=== PATIENT | female | born 1945 | race Caucasian/White ===

== ENCOUNTER → 2023-09-30 12:57 | Outpatient (REF) | payer MEDICARE, OTHER, SELFPAY | LOC: RCS 12:57 | PROVIDERS: ATTENDING PHYSICIAN Internal Medicine; FAMILY PHYSICIAN Internal Medicine | DX: C50.912 Malignant neoplasm of unspecified site of left female breast (principal); Z17.1 Estrogen receptor negative status [ER-]; I89.0 Lymphedema, not elsewhere classified | CPT/HCPCS: 93306; 93356 ==

== ENCOUNTER → 2023-10-13 12:49 | Outpatient (REF) | payer MEDICARE, OTHER, SELFPAY | LOC: WDC 12:49 | PROVIDERS: ATTENDING PHYSICIAN Internal Medicine Hematology & Oncology; FAMILY PHYSICIAN Internal Medicine | DX: R92.2 Inconclusive mammogram (principal) | CPT/HCPCS: 76641 ==

== ENCOUNTER → 2023-10-22 14:32 | Outpatient (REF) | payer MEDICARE, OTHER, SELFPAY ==
[2023-10-22 14:58] LABS: % Basophils 0.6 % (0-2); % Eosinophils 2.1 % (0-6); % Immature Granulocytes 0.2 % (0-0.5); % Lymphocytes 29.7 % (20.5-51.1); % Monocytes 8.1 % (1.7-9.3); % Neutrophils 59.3 % (42.2-75.2); Absolute Eosinophils 0.1 10^3/uL (0-0.7); Absolute Lymphocytes 1.4 10^3/uL (1.2-3.4); Absolute Monocytes 0.4 10^3/uL (0.1-0.6); Absolute Neutrophils 2.8 10^3/uL (1.4-6.5); Hematocrit 37.1 % (37.0-47.0); Hemoglobin 12.9 g/dL (12.0-16.0); Mean Corp Hgb Conc. 34.8 g/dL (33.0-37.0); Mean Corpuscular Hgb 31.9 pg (27.0-31.0); Mean Corpuscular Volume 91.8 fL (81.0-99.0); Mean Platelet Volume 8.5 fL (7.4-10.4); Nucleated Red Blood Cells % 0 %; Platelet Count 219 10^3/uL (130-400); Red Blood Cell Count 4.04 10^6/uL (4.20-5.40); Red Cell Dist. Width 13.5 % (11.5-14.5); White Blood Cell Count 4.7 10^3/uL (4.8-10.8)
[2023-10-22 15:07] LABS: ALT (SGPT) 28 U/L (0-35); AST (SGOT) 38 U/L (14-36); Albumin 4.3 g/dl (3.5-5.0); Alkaline Phosphatase 45 U/L (38-126); Blood Urea Nitrogen 18 mg/dl (7-17); Calcium 9.6 mg/dl (8.4-10.2); Carbon Dioxide 30 mmol/L (22-30); Chloride 98 mmol/L (98-107); Glucose 90 mg/dl (70-99); Potassium 3.8 mmol/L (3.5-5.1); Sodium 131 mmol/L (135-145); Total Bilirubin 0.3 mg/dl (0.2-1.3); Total Protein 7.1 g/dl (6.3-8.2); eGFR > 60.00
[2023-10-24 18:48] LABS: CA 27-29 23.6 U/mL (<=39.0)
== END ==
LOC: REG 14:32
PROVIDERS: ATTENDING PHYSICIAN Internal Medicine Hematology & Oncology; FAMILY PHYSICIAN Internal Medicine; REFERRING PHYSICIAN Family Medicine Geriatric Medicine
DX: C50.212 Malignant neoplasm of upper-inner quadrant of left female breast (principal); N83.292 Other ovarian cyst, left side; L03.112 Cellulitis of left axilla; L76.34 Postprocedural seroma of skin and subcutaneous tissue following other procedure; G90.09 Other idiopathic peripheral autonomic neuropathy
CPT/HCPCS: 36415; 80053; 85025; 86300

== ENCOUNTER 2023-11-19 12:59 | Outpatient (RCR) | payer MEDICARE, OTHER, SELFPAY | END 2023-11-19 23:59 | disposition home or self-care (01) | LOC: RPT 12:59 | PROVIDERS: ATTENDING PHYSICIAN Nurse Practitioner Adult Health; FAMILY PHYSICIAN Internal Medicine | DX: I97.2 Postmastectomy lymphedema syndrome (principal); C50.212 Malignant neoplasm of upper-inner quadrant of left female breast; L03.112 Cellulitis of left axilla; L76.34 Postprocedural seroma of skin and subcutaneous tissue following other procedure; Z73.6 Limitation of activities due to disability | CPT/HCPCS: 97140; 97162 ==

== ENCOUNTER 2023-11-25 08:59 | Outpatient (RCR) | payer MEDICARE, OTHER, SELFPAY | END 2023-11-25 23:59 | disposition home or self-care (01) | LOC: RPT 08:59 | PROVIDERS: ATTENDING PHYSICIAN Nurse Practitioner Adult Health; FAMILY PHYSICIAN Internal Medicine | DX: I97.2 Postmastectomy lymphedema syndrome (principal); C50.212 Malignant neoplasm of upper-inner quadrant of left female breast; L03.112 Cellulitis of left axilla; L76.34 Postprocedural seroma of skin and subcutaneous tissue following other procedure; Z73.6 Limitation of activities due to disability | CPT/HCPCS: 97110; 97140 ==

== ENCOUNTER 2023-12-03 22:53 | Inpatient (IN) | payer MEDICARE, OTHER, SELFPAY ==
[2023-12-03 17:41] VITALS: BP 129/81
--- NOTE | 2023-12-03 20:47 | ED.GENMED ---
History of Present Illness
General
Chief Complaint: Abnormal Lab Value
Source: patient
Time Seen by Provider: 12/03/23 20:37
Travel History
Have you had any contact with someone who has COVID-19?: No
Do you have any symptoms of coronavirus? Fever > 100 degrees, chills, cough, shortness of breath, sore throat, loss of taste or smell, muscle aches, or headache?: No
History of Present Illness
History of Present Illness:
78-year-old female presents to the emergency room for evaluation of icteric skin, systemic itching and abnormal blood work. Patient called her primary care doctor when she noticed the above symptoms. Outpatient blood work was obtained today. Labs
show markedly elevated bilirubin. AST and ALT are only mildly elevated at 88 and 141. Alk phos 167. Patient does have a history of left breast cancer. She did receive chemo and radiation.
Phy Exam
Physical Exam
Physical Exam:
General: Awake, Alert, Oriented X3. No acute distress.
Vitals: unremarkable
Head: Atraumatic
Eyes: Pupils equal, EOMI, scleral icterus
Throat: Airway intact, no exudates
Neck: Trachea midline
Lungs: Clear and equal b/l
Heart: Regular rate, no murmurs
Abd: Soft, Nontender, No pulsatile mass
Neuro: Nonfocal
Skin: Warm, dry, icteric with some scattered urticarial like lesions
Extremities: pulses equal b/l, no edema
Course
Orders/Labs/Results
Orders:
Orders
12/03/23 20:47
CT Abd/pelvis W Iv Cont Urgent
Comment:
Reason For Exam: elevated bili, hx of breast cancer
12/03/23 22:00
HydrOXYZINE [Atarax] 25 mg PO NOW STA
12/03/23 22:05
US Abdomen Limited Urgent
Reason For Exam: elevated lft's, biliary dilation on CT
12/03/23 22:29
Admit/Transfer Patient As Directed
Co-Sign Provider:
Level of Care: Inpatient admission
Assign to:: Medical/Surgical
Physician / Group: Maliha Martinez
Diagnosis: biliary dilation, painless jaundice
Reason for Hospitalization: biliary dilation, painless jaundice
Expected length of stay greater than two midnights?: Yes
ELOS- Estimated Length of Stay in days: 3
I certify the patient meets the requirements for IP care: Yes
12/03/23 22:30
Code Status As Directed
Resuscitation Status: Full Code
Vital Signs
Initial and Last Documented VS:
Initial Vital Signs
Temp Pulse Resp BP Pulse Ox
98.7 F 83 18 129/81 99
12/03/23 17:41 12/03/23 17:41 12/03/23 17:41 12/03/23 17:41 12/03/23 17:41
Last Documented Vital Signs
Temp Pulse Resp BP Pulse Ox
98.7 F 83 18 119/72 100
12/03/23 17:41 12/03/23 17:41 12/03/23 17:41 12/03/23 22:00 12/03/23 22:15
MDM/Problems Addressed
Differential Diagnosis Includes:
Common bile duct stone, biliary stricture, mass
MDM/Problems Addressed:
Patient presents with elevated bilirubin. Her CT shows a distended gallbladder and large ducts but no obvious mass or stone. Radiology recommended ultrasound. Patient will be hospitalized as she is clearly going to need intervention.
*Radiology
Radiology exam reviewed: radiology read reviewed
*Pulse Oximetry
Patient hypoxic: no
*Critical Care Note
Total Time (30-74mins, 75-104mins- exclusive of procedures): Not Applicable
ED Attending Note
-
Portions of this chart may have been created with voice recognition software.� Occasional wrong word or��sound alike� substitutions may have occurred due to the inherent limitations of voice recognition software.
Discharge Plan
Departure
Patient Disposition: Admit
Date of Disposition: 12/03/23
Time of Disposition: 22:04
Admit to: Med/Surg
Presentation/result/management discussed w/ accepting MD/DO: Hospitalist
Condition: Fair
Discharge Problem:
Biliary obstruction
Interventions
Interventions:
*Risk Screen - Suicide Last Done: 12/03/23 21:54
*General Assessment Last Done: 12/03/23 17:42
*Neglect/Abuse Screening Last Done: 12/03/23 21:54
ED- Fall Risk Assessment Last Done: 12/03/23 21:54
*ED COVID-19 Vaccine History Last Done: 12/03/23 17:42
[2023-12-03 21:54] VITALS: BMI 18.7
[2023-12-03 21:56] VITALS: BP 117/72
[2023-12-03 22:00] VITALS: BP 119/72
[2023-12-03] MEDS: ATARAX 25 MG PO (22:04)
--- NOTE | 2023-12-03 22:09 | HPS.HSE ---
Family Physician
-
Family Physician: David Figueroa
Chief Complaint
-
painless jaundice
History of Present Illness
Ms. Mraisa Frey is a 78 yo woman with hx Chron's disease s/p ostomy, left breast CA (dx 2020) s/p lumpectomy chemo and radiation who presents to the ER with yellow skin and abnormal blood work.
Patient states she started noticing yellowing of her skin 2 days ago. She denies fevers/chills. No nausea/vomiting. No diarrhea. No change in appetite. No new medications. No hx gallbladder issues.
Medical History
Past Medical History
Past Medical History: Reports Other (left breast cancer s/p chemo and raditation )
Past Surgical History: Reports Other (lumpectomy, ostomy)
Social History
Tobacco: Non-smoker
Alcohol: None
Family History
Family History: Not pertinent
Allergies / Home Medications
Allergies reflects when Allergies were last updated in [employer].
Home Medications with original date entered in [employer]
Allergy/Medication List:
Allergies
Allergy/AdvReac Type Severity Reaction Status Date / Time
Cephalosporins Allergy PCN allergy Verified 12/03/23 17:43
infliximab [From Remicade] Allergy Neuropathy, Verified 12/03/23 17:43
hair loss
mesalamine Allergy Vomiting Verified 12/03/23 17:43
penicillin G Allergy Hives, Verified 12/03/23 17:43
Inability
to move LE
Penicillins Allergy Hives, Verified 12/03/23 17:43
Inability
to move LE
Home Medications
alendronate 70 mg tablet (Fosamax) 70 mg PO WE@0800 05/15/22
cyanocobalamin (vitamin B-12) 1,000 mcg/mL injection solution 1,000 mcg IM QMONTH 05/15/22
ferrous sulfate 325 mg (65 mg iron) tablet (Iron (ferrous sulfate)) 325 mg PO DAILY 05/15/22
Calcium 600 + D(3) 1 tab PO BID 12/03/23
fexofenadine 180 mg tablet 180 mg PO DAILY PRN itching 12/03/23
folic acid 800 mcg tablet 0.8 mg PO DAILY 12/03/23
turmeric 400 mg capsule 400 mg PO DAILY 12/03/23
Review of Systems
-
History Source: Patient
A 12 point ROS was completed and negative except as noted: Yes
Physical Exam
Vital Signs
Vital Signs
Temp Pulse Resp BP Pulse Ox
98.7 F 83 18 117/72 100
12/03/23 17:41 12/03/23 17:41 12/03/23 17:41 12/03/23 21:56 12/03/23 21:56
Physical Exam
General: No Apparent Distress and Conversant
HEENT: PERRLA
Respiratory: Clear; No Wheezes
Cardiac: Regular Rhythm
GI: Ostomy
Musculoskeletal: No Edema
Skin: Warm and Dry; No Rash
Neuro: AO x 3
Psych: Calm
Data Reviewed
-
Diagnostic Radiology: Report Reviewed by me
Lab Data: Labs Reviewed by me
Impression/Plan
-
Ms. Marisa Frey is a 78 yo woman with hx Chron's disease s/p ostomy, left breast CA (dx 2020) s/p lumpectomy chemo and radiation who presents to the ER with yellow skin and abnormal blood work.
Triage VS: T 98.7, P 83, RR 18, BP 129/81, SpO2 99%
LABS: WBC 4.1, Hg 12, PLT 256, Na 133, K+ 4.2, Cr 0.7, Ca 9.6, T. Bili 7.7, AST 88, ALT 141, Alk Phos 167
CT A/P
IMPRESSION: New severe intra and extrahepatic biliary dilatation as well as gallbladder distention. No gallstones identified. This would better be evaluated by abdominal ultrasound.
Mild left hydronephrosis. New. Etiology unknown.
Bilateral too small to characterize hypodense renal lesions likely benign cysts.
Postsurgical change. Right lower quadrant ostomy
Painless Jaundice with T. Bili 7.7
Severe intra and extrahepatic biliary dilatation without gallstone identified
-US ordered in ER. Doubt gallstone given lack of pain or GI symptoms
-admit to med/surg
-NPO after MN
-MRI with and without contrast
-GI Consult
-IVF D5 LR
-give lack of fever, pain and WBC will hold off on antibiotics. Low threshold to start if these present
Hx left breast cancer
-dx 2020
s/p lumpectomy, chemo and radiation
Hx Chron's with ostomy creation
DVT PPx SCD
FULL CODE
[2023-12-03 23:52] VITALS: BP 115/70
[2023-12-03 23:59] VITALS: BP 115/70
[2023-12-04 01:06] VITALS: BMI 18.7
[2023-12-04 01:07] VITALS: BP 130/72
[2023-12-04] MEDS: D5LR 1000 IV ×2 (01:45→13:08)
--- NOTE | 2023-12-04 02:51 | PTCARENOTE ---
Patient arrived to unit via stretcher with diagnosis of Biliary dilation/ painless jaundice. Patient denies pain or discomfort. AAOx3. Ambulates to bathroom. Oriented to unit. Call madera within reach.
[2023-12-04 07:30] VITALS: BP 107/69
[2023-12-04] MEDS: FOLVITE 0.800000000000000044 MG PO (07:56)
[2023-12-04 08:10] LABS: % Basophils 1.8 % (0-2); % Eosinophils 3.9 % (0-6); % Immature Granulocytes 0.3 % (0-0.5); % Lymphocytes 25.5 % (20.5-51.1); % Monocytes 15.9 % (1.7-9.3); % Neutrophils 52.6 % (42.2-75.2); Absolute Basophils 0.1 10^3/uL (0-0.2); Absolute Eosinophils 0.1 10^3/uL (0-0.7); Absolute Lymphocytes 0.9 10^3/uL (1.2-3.4); Absolute Monocytes 0.5 10^3/uL (0.1-0.6); Absolute Neutrophils 1.8 10^3/uL (1.4-6.5); Hematocrit 32.6 % (37.0-47.0); Hemoglobin 11.6 g/dL (12.0-16.0); Mean Corp Hgb Conc. 35.6 g/dL (33.0-37.0); Mean Corpuscular Hgb 32.2 pg (27.0-31.0); Mean Corpuscular Volume 90.6 fL (81.0-99.0); Mean Platelet Volume 9.5 fL (7.4-10.4); Nucleated Red Blood Cells % 0 %; Platelet Count 226 10^3/uL (130-400); Red Cell Dist. Width 15.4 % (11.5-14.5); White Blood Cell Count 3.3 10^3/uL (4.8-10.8)
--- NOTE | 2023-12-04 08:12 | CON.GI ---
Addendum entered and electronically signed by Norma Covington Do, MD 12/04/23 14:29:
I saw and examined the patient.
The SILVERLIGHT DEVELOPER's note was reviewed and I agree with the note.
Comment: Marisa is a 78yo W with h/o crohn's disease s/p ileocectomy followed by total colectomy with end ileostomy currently on no therapy and L sided breast cancer who told to come to ED for elevated TB and painless jaundice. She denies any abd
pain. No new recent meds. Exam with stable VSS, NTTP, NABS, jaundiced icteric. Labs reviewed notable for elevated LFTs.
Impression
- Painless jaundice
MRCP with abrupt termination of distal CBD by stone vs mass
- Crohn's disease with ileostomy
Not currently on therapy
- L sided breast cancer s/p chemoXRT
Recommendation
- Low fat diet
- Plan for EUS/ERCP on Thursday. Case discussed with Dr Powers
- Avoid hepatotoxins
- Serial LFTs
Will follow with you
Original Note:
Consultation
-
Date/Time Consultation Requested: 12/04/23 @ 01:15
Date/Time Consultation Performed: 12/04/23 @ 08:45
Requesting Provider: Dr. Martinez
Performing Provider: SMITHA Osborn; Dr. Norma Stewart
Reason for Consultation: Intra/extra hepatic ductal dilation, painless jaundice
Medical History
Chief Complaint / HPI
Chief Complaint: yellowing skin/eyes, abnormal outpatient labs
History of Present Illness:
The patient is a pleasant 78-year-old female with a past medical history significant for Crohn's disease s/p initial ileocecectomy with subsequent total colectomy and end ileostomy previously on 6-MP therapy (which she is off of), left sided breast
cancer dx March 2022 post lumpectomy (May 2022), chemotherapy (completed October 2022), and radiation, Vitamin B12 deficiency, iron deficiency, who presented to the hospital with complaints of painless jaundice and abnormal outpatient labs. We are
being asked to evaluate for the presenting symptoms with findings of biliary ductal dilation. The patient reports that she had been feeling generally unwell the past week. She noticed about 3 to 4 days ago her urine appeared to be darker in color
and she developed severe itching. She also noticed that her skin started to get progressively yellow along with her eyes. She denies any significant abdominal pain, fevers, or chills. She otherwise denies any GI complaints such as nausea,
vomiting, dysphagia,odynophagia, loss of appetite, or unintentional weight loss. She denies any alcohol use, but had drank alcohol socially prior to that and would have about 1 glass of wine a day on average. She denies any smoking history or
illicit drug use She otherwise denies any history of liver disease or gallbladder disease. She denies any family history of liver disease, pancreatic cancer, or other GI cancers or disorders. Family history is significant for breast cancer in
which she was negative for BRCA gene upon testing. She denies any use of blood thinners. She denies use of NSAIDs. Her last colonoscopy was a number of years ago as she does not have a colon left after her surgical resection. She was previously
following at [facility] with Dr. Jazmin Mortensen for her Crohn's disease, and has recently establish care with Dr. Clark here at [facility]. She follows with Dr. Duarte for routine monitoring of from her breast cancer. Noted with her last PET scan
done in May 2022 in which the biliary findings were not present. Routine labs on admission showed WBC 3.3, hemoglobin 11.6, platelets 226,000, sodium 133, potassium 4.2, BUN 16, creatinine 0.7, total bilirubin 7.7, AST 88, ALT 141, alk phos 167.
Ultrasound the abdomen showed a distended gallbladder with associated intra and extrahepatic ductal dilation without visualized gallstones and hepatic fatty infiltration. A CT of the abdomen pelvis with IV contrast only was done as well which
showed new severe intra and intrahepatic ductal dilation as well as gallbladder distention with no obvious stones, mild left hydronephrosis, and other findings as noted below. She was made n.p.o., and admitted for further evaluation by GI pending
MRI with MRCP.
Past Medical History
Past Medical History: Cancer (Breast cancer status postlumpectomy, chemotherapy, and radiation initial diagnosis March 2022) and Other (Crohn's disease with ileostomy (?Total colectomy), vitamin B12 deficiency, iron deficiency)
Past Surgical History: Bowel Resection (Crohn's disease s/p initial ileocecectomy with subsequent total colectomy and end ileostomy previously on 6-MP therapy) and Gynecological (Tubal ligation, breast lumpectomy)
Social History
Tobacco: Non-Smoker
Alcohol: None
Drug: None
Personal:
Living: With Family
Family History
Family History: Cancer (Mother, and maternal aunt with breast cancer) and Other (No family history of colon cancer, pancreatic cancer, or other GI cancers or disorders)
Allergies / Home Medications
Allergy/AdvReac Type Severity Reaction Status Date / Time
Cephalosporins Allergy PCN allergy Verified 12/03/23 17:43
infliximab [From Remicade] Allergy Neuropathy, Verified 12/03/23 17:43
hair loss
mesalamine Allergy Vomiting Verified 12/03/23 17:43
penicillin G Allergy Hives, Verified 12/03/23 17:43
Inability
to move LE
Penicillins Allergy Hives, Verified 12/03/23 17:43
Inability
to move LE
�Medication �Instructions �Recorded
alendronate 70 mg tablet (Fosamax) 70 mg PO WE@0800 05/15/22
cyanocobalamin (vitamin B-12) 1,000 mcg IM QMONTH 05/15/22
1,000 mcg/mL injection solution
ferrous sulfate 325 mg (65 mg 325 mg PO DAILY 05/15/22
iron) tablet (Iron (ferrous
sulfate))
Calcium 600 + D(3) 1 tab PO BID 12/03/23
fexofenadine 180 mg tablet 180 mg PO DAILY PRN itching 12/03/23
folic acid 800 mcg tablet 0.8 mg PO DAILY 12/03/23
turmeric 400 mg capsule 400 mg PO DAILY 12/03/23
Review of Systems
-
History Source: Patient and Family
Constitutional: Reports No Symptoms
EENT: Reports No Symptoms
Respiratory: Reports No Symptoms
Cardiac: Reports No Symptoms
Abdomen/GI: Reports No Symptoms
: Reports Dark Urine
Musculoskeletal: Reports No Symptoms
Skin: Reports Itching and Other (Jaundice)
Neurological: Reports No Symptoms
Vital Signs
Temp Pulse Resp BP Pulse Ox
97.9 F 75 18 130/72 97
12/04/23 01:07 12/04/23 01:07 12/04/23 01:07 12/04/23 01:07 12/04/23 01:07
Physical Exam
Exam
General: Well Developed, Well Nourished, No Apparent Distress, Comfortable and Other (Appearing female, jaundice, otherwise in no acute distress)
HEENT: Normocephalic, Atraumatic and Other (Bilateral scleral icterus)
Respiratory: Clear
Cardiac: S1/S2 and Regular Rhythm
Breast: Deferred by me
GI: Soft, Non Tender, Non Distended, Normal Bowel Sounds and Other (Right lower quadrant ileostomy)
Musculoskeletal: No Edema
Skin: Warm and Dry
Neuro: Awake, Alert and Oriented
Psych: Calm
Results
Diagnostic Image Results:
12/03/23 CT A/P w/IV: 'IMPRESSION: New severe intra and extrahepatic biliary dilatation as well as gallbladder distention. No gallstones identified. This would better be evaluated by abdominal ultrasound. Mild left hydronephrosis. New. Etiology
unknown. Bilateral too small to characterize hypodense renal lesions likely benign cysts. Postsurgical change. Right lower quadrant ostomy.'
12/03/2023 US abdomen: 'Distended gallbladder. Associated intra and extrahepatic dilatation with no visualized gallstones. New from PET scan 06/12/2022. This could further be evaluated by MRCP or ERCP examination to evaluate for a stricture or a
nonvisible mass by CT or ultrasound if indicated clinically. (No pancreatic mass seen on recent CAT scan). Hepatic fatty infiltration.'
Prior GI Procedures:
EGD:
Colonoscopy:
Assessment / Plan
-
The patient is a pleasant 78-year-old female with a past medical history significant for Crohn's disease s/p initial ileocecectomy with subsequent total colectomy and end ileostomy previously on 6-MP therapy (which she is off of), left sided breast
cancer dx March 2022 post lumpectomy (May 2022), chemotherapy (completed October 2022), and radiation, Vitamin B12 deficiency, iron deficiency, who presented to the hospital with complaints of painless jaundice and abnormal outpatient labs which we
are being asked to evaluate for. She underwent ultrasound and CT imaging on admission which did show significant intra and extrahepatic ductal dilation, although without visualized gallstones but the gallbladder did appear distended. Labs showing
bilirubin 7.7, AST 88, ALT 141, alk phos 167. No prior history of biliary or pancreatic disease. She is awaiting MRI with MRCP this morning.
Problem list:
-Painless jaundice
-Abnormal LFTs
-History of breast cancer March 2022
-History of Crohn's disease with ileocecectomy with total colectomy and end ileostomy, not on medications
-Chronic normocytic anemia, appears at baseline
Recommendations:
-Etiology of painless jaundice/biliary ductal dilation likely secondary to biliary v pancreatic etiology such as choledocho versus stricture versus mass versus other. No obvious masses or stones seen on CT or ultrasound imaging.
-Agree with MRI with MRCP for further evaluation. I did speak with MRI who reports patient will have her MRI today.
-Pending above may need ERCP v EUS. Will review with Dr. Powers and Dr. Stewart
-Continue n.p.o.
-Trend LFTs
-IV fluids while n.p.o.
-Outpatient follow-up with Dr. Clark after discharge for routine care
-Will follow
Data Reviewed
-
CT Scan: Report Reviewed by me
Ultrasound: Report Reviewed by me
-
-
Thank you for consultation and allowing me to participate in the patient's care. Please call the iron plastic bullet maker GI physician during the after hours with any questions or concerns.
[2023-12-04 08:58] LABS: Albumin 3.5 g/dl (3.5-5.0); Blood Urea Nitrogen 11 mg/dl (7-17); Carbon Dioxide 22 mmol/L (22-30); Chloride 106 mmol/L (98-107); Estimated Creatinine Clearance 72 ml/min; Glucose 93 mg/dl (70-99); Total Bilirubin 7.5 mg/dl (0.2-1.3); Total Protein 6.1 g/dl (6.3-8.2); eGFR > 60.00
--- NOTE | 2023-12-04 08:59 | W.PN.HOSP.TC ---
Today's Communication/Plan
-
MRCP.
Assessment / Plan
Assessment / Plan
Physical exam:
General: Well Developed, Well Nourished and No Apparent Distress
HEENT: Normocephalic, Atraumatic and Moist Mucous Membranes. Jaundice present
Respiratory: Clear to Auscultation; Negative Wheezes, Rales or Rhonchi
Cardiac: Regular Rhythm and S1/S2
GI: Soft, Nontender and Nondistended. Ostomy in place
Musculoskeletal: No Clubbing, No Cyanosis and No Edema
Neuro: Awake, Alert and Oriented
Psych: Calm
A/P:
Painless Jaundice with T. Bili 7.7
Severe intra and extrahepatic biliary dilatation without gallstone identified
-US ordered in ER. Doubt gallstone given lack of pain or GI symptoms
-admit to med/surg
-NPO after MN
-MRI with and without contrast
-GI Consult appreciated
-IVF D5 LR
-give lack of fever, pain and WBC will hold off on antibiotics. Low threshold to start if these present
-Discussed with at bedside
Hx left breast cancer
-dx 2020
s/p lumpectomy, chemo and radiation
Hx Chron's with ostomy creation
DVT PPx SCD
FULL CODE
Anticipated Discharge: 24 - 48 hours
Subjective/Interval History
-
Date of Service: December 04, 2023
Patient denies abdominal pain. Afebrile
Objective Data
-
Labs:
Laboratory Results
12/04/23
07:21
WBC 3.3 L
Hgb 11.6 L
Hct 32.6 L
Plt Count 226
Sodium Pending
Potassium Pending
Chloride 106
Carbon Dioxide 22
BUN 11
Creatinine 0.5 L
Glucose 93
Calcium Pending
Total Bilirubin 7.5 H
AST Pending
ALT Pending
Alkaline Phosphatase Pending
Vital Signs:
Vital Signs
Temp Pulse Resp BP Pulse Ox
97.9 F 75 18 130/72 97
12/04/23 01:07 12/04/23 01:07 12/04/23 01:07 12/04/23 01:07 12/04/23 01:07
I&O
12/03/23 12/04/23 12/05/23
06:59 06:59 06:59
Intake Total 1000 / 1000
Balance 1000 / 1000
[2023-12-04 09:08] LABS: ALT (SGPT) 118 U/L (0-35); AST (SGOT) 78 U/L (14-36); Alkaline Phosphatase 162 U/L (38-126); Calcium 9.4 mg/dl (8.4-10.2); Potassium 4.1 mmol/L (3.5-5.1); Sodium 134 mmol/L (135-145)
--- NOTE | 2023-12-04 13:32 | CM ---
Patient seen bedside with spouse, initial assessment completed. Patient reports she resides with her in a multiple story home, three steps to enter. Patient denies DME, VN, or SNF. Patient confirms PCP David Figueroa, confirms prescription
coverage, pharmacy used [facility] in [place]. CM will continue to follow for discharge planning needs.
Plan; home no needs vs VN
--- NOTE | 2023-12-04 14:29 | W.PN.UPDATE ---
Update Note
Progress Note Update
Billing purposes
[2023-12-04 15:00] VITALS: BP 111/73
[2023-12-04] MEDS: ATARAX 25 MG PO (18:54)
[2023-12-04] MEDS: TUMS 1 TABLET PO (21:59)
[2023-12-04 23:24] VITALS: BP 98/56
[2023-12-05] MEDS: D5LR 1000 IV (01:41)
[2023-12-05 07:34] VITALS: BP 119/76
[2023-12-05 08:32] LABS: % Basophils 1.6 % (0-2); % Immature Granulocytes 0.3 % (0-0.5); % Lymphocytes 24.8 % (20.5-51.1); % Monocytes 14.3 % (1.7-9.3); Absolute Basophils 0.1 10^3/uL (0-0.2); Absolute Eosinophils 0.2 10^3/uL (0-0.7); Absolute Lymphocytes 0.8 10^3/uL (1.2-3.4); Absolute Monocytes 0.5 10^3/uL (0.1-0.6); Absolute Neutrophils 1.7 10^3/uL (1.4-6.5); Hematocrit 33.3 % (37.0-47.0); Mean Corpuscular Hgb 32.3 pg (27.0-31.0); Mean Corpuscular Volume 89.8 fL (81.0-99.0); Mean Platelet Volume 9.6 fL (7.4-10.4); Nucleated Red Blood Cells % 0 %; Platelet Count 227 10^3/uL (130-400); Red Blood Cell Count 3.71 10^6/uL (4.20-5.40); Red Cell Dist. Width 15.2 % (11.5-14.5); White Blood Cell Count 3.2 10^3/uL (4.8-10.8)
[2023-12-05] MEDS: FOLVITE 0.800000000000000044 MG PO (08:35)
[2023-12-05 08:38] LABS: INR 0.88; PT 11.8 Sec (11.4-14.6)
--- NOTE | 2023-12-05 08:43 | W.PN.HOSP.TC ---
Today's Communication/Plan
-
Plan for ERCP Thursday
Assessment / Plan
Assessment / Plan
Physical exam:
General: Well Developed, Well Nourished and No Apparent Distress
HEENT: Normocephalic, Atraumatic and Moist Mucous Membranes. Jaundice present
Respiratory: Clear to Auscultation; Negative Wheezes, Rales or Rhonchi
Cardiac: Regular Rhythm and S1/S2
GI: Soft, Nontender and Nondistended. Ostomy in place
Musculoskeletal: No Clubbing, No Cyanosis and No Edema
Neuro: Awake, Alert and Oriented
Psych: Calm
MRCP:
Dilated intra and extrahepatic biliary system, with abrupt termination of the distal common bile duct concerning for either a noncalcified gallstone or soft tissue mass/neoplasm within the duct. ERCP is recommended.
Distended gallbladder. Minimal pericholecystic fluid. No definite gallstones.
There is no pancreatic ductal dilatation.
Left hydronephrosis, similar to CT, new. Minimal cyst in the kidneys and liver.
Ostomy right lower quadrant.
A/P:
Painless Jaundice with T. Bili 7.7
Severe intra and extrahepatic biliary dilatation without gallstone identified
-MRI with and without contrast results as above
-GI Consult appreciated
-Diet advanced
-GI consult appreciated
-Plan for EUS/ERCP on Thursday
Hx left breast cancer
-dx 2020
s/p lumpectomy, chemo and radiation
Hx Chron's with ostomy creation
DVT PPx SCD
FULL CODE
Anticipated Discharge: > 48 hours
Subjective/Interval History
-
Date of Service: December 05, 2023
Denies abd pain, no n/v. Afebrile
Objective Data
-
Labs:
Laboratory Results
12/05/23
08:10
WBC 3.2 L
Hgb 12.0
Hct 33.3 L
Plt Count 227
PT 11.8
INR 0.88
Sodium Pending
Potassium Pending
Chloride Pending
Carbon Dioxide Pending
BUN Pending
Creatinine Pending
Glucose Pending
Calcium Pending
Total Bilirubin Pending
AST Pending
ALT Pending
Alkaline Phosphatase Pending
Vital Signs:
Vital Signs
Temp Pulse Resp BP Pulse Ox
97.7 F 73 18 119/76 100
12/05/23 07:34 12/05/23 07:34 12/05/23 07:34 12/05/23 07:34 12/05/23 07:34
I&O
12/04/23 12/05/23 12/06/23
06:59 06:59 06:59
Intake Total 1000 / 1000 1879
Balance 1000 / 1000 1879
[2023-12-05 09:06] LABS: ALT (SGPT) 100 U/L (0-35); AST (SGOT) 69 U/L (14-36); Albumin 3.6 g/dl (3.5-5.0); Alkaline Phosphatase 167 U/L (38-126); Blood Urea Nitrogen 11 mg/dl (7-17); Calcium 9.4 mg/dl (8.4-10.2); Carbon Dioxide 26 mmol/L (22-30); Chloride 103 mmol/L (98-107); Estimated Creatinine Clearance 72 ml/min; Glucose 86 mg/dl (70-99); Potassium 4.2 mmol/L (3.5-5.1); Sodium 134 mmol/L (135-145); Total Bilirubin 8.2 mg/dl (0.2-1.3); Total Protein 6.2 g/dl (6.3-8.2); eGFR > 60.00
--- NOTE | 2023-12-05 10:38 | W.PN.GI.CBS2 ---
Today's Communication / Plan
-
Results of MRI d/w pt and copy provided
EUS/ERCP with Dr Powers on Thursday
Will follow with you
Assessment / Plan
-
The patient is a pleasant 78-year-old female with a past medical history significant for Crohn's disease s/p initial ileocecectomy with subsequent total colectomy and end ileostomy previously on 6-MP therapy (which she is off of), left sided breast
cancer dx March 2022 post lumpectomy (May 2022), chemotherapy (completed October 2022), and radiation, Vitamin B12 deficiency, iron deficiency, who presented to the hospital with complaints of painless jaundice and abnormal outpatient labs which we
are being asked to evaluate for. She underwent ultrasound and CT imaging on admission which did show significant intra and extrahepatic ductal dilation, although without visualized gallstones but the gallbladder did appear distended. Labs showing
bilirubin 7.7, AST 88, ALT 141, alk phos 167. No prior history of biliary or pancreatic disease. She is awaiting MRI with MRCP this morning.
Problem list:
-Painless jaundice
MRI with ? stone vs mass
-Abnormal LFTs
-History of breast cancer March 2022
-History of Crohn's disease with ileocecectomy with total colectomy and end ileostomy, not on medications
-Chronic normocytic anemia, appears at baseline
Recommendations:
- Results of MRI d/w pt. Copy provided for her
- Plan for EUS/ERCP for possible stent FNA on Thursday with Dr Powers. Case d/w Dr Pwoers
- C/w Low fat diet. NPO at [place] on thursday
- Trend LFTs
- Sarna cream topically PRN itching
Will follow with you
Subjective
Subjective
Date of Service: December 05, 2023
She denies abd pain. Tolerating low fat diet. No nausea/vomiting. She is still itching diffusely. No fevers
Objective
Data Reviewed
Laboratory Data:
Laboratory Results
12/05/23 08:10
12/05/23 08:10
Laboratory Results
PT 11.8 Sec (11.4-14.6) 12/05/23 08:10
INR 0.88 12/05/23 08:10
Magnesium 2.0 mg/dl (1.6-2.3) 12/04/23 07:21
Total Bilirubin 8.2 mg/dl (0.2-1.3) H 12/05/23 08:10
AST 69 U/L (14-36) H 12/05/23 08:10
ALT 100 U/L (0-35) H 12/05/23 08:10
Alkaline Phosphatase 167 U/L (38-126) H 12/05/23 08:10
Vital Signs and I&O:
Vital Signs
Temp Pulse Resp BP Pulse Ox
97.7 F 73 18 119/76 100
12/05/23 07:34 12/05/23 07:34 12/05/23 07:34 12/05/23 07:34 12/05/23 07:34
I&O
12/04/23 12/05/23 12/06/23
06:59 06:59 06:59
Intake Total 1000 / 1000 1879
Balance 1000 / 1000 1879
Physical Exam
Physical Exam
GEN: No acute distress, conversant, pleasant
HEENT: +icteric, extraocular movements intact, clear oropharynx without exudates
GI: soft, non-distended, not tender to palpation, normal active bowel sounds, no hepatosplenomegaly
EXT: warm, well perfused, no edema bilaterally ++diffusely jaundice
NEURO: AAOx3, non-focal
[2023-12-05 17:34] VITALS: BP 121/72
[2023-12-05] MEDS: ATARAX 25 MG PO (19:19)
[2023-12-05 23:19] VITALS: BP 105/61
[2023-12-06 07:11] VITALS: BP 113/70
[2023-12-06] MEDS: FOLVITE 0.800000000000000044 MG PO (08:01)
--- NOTE | 2023-12-06 08:56 | W.PN.HOSP.TC ---
Today's Communication/Plan
-
Plan for EUS/ERCP tomorrow.
Assessment / Plan
Assessment / Plan
Physical exam:
General: Well Developed, Well Nourished and No Apparent Distress
HEENT: Normocephalic, Atraumatic and Moist Mucous Membranes. Jaundice present
Respiratory: Clear to Auscultation; Negative Wheezes, Rales or Rhonchi
Cardiac: Regular Rhythm and S1/S2
GI: Soft, Nontender and Nondistended. Ostomy in place
Musculoskeletal: No Clubbing, No Cyanosis and No Edema
Neuro: Awake, Alert and Oriented
Psych: Calm
MRCP:
Dilated intra and extrahepatic biliary system, with abrupt termination of the distal common bile duct concerning for either a noncalcified gallstone or soft tissue mass/neoplasm within the duct. ERCP is recommended.
Distended gallbladder. Minimal pericholecystic fluid. No definite gallstones.
There is no pancreatic ductal dilatation.
Left hydronephrosis, similar to CT, new. Minimal cyst in the kidneys and liver.
Ostomy right lower quadrant.
A/P:
Painless Jaundice with T. Bili 7.7 upon admission
Severe intra and extrahepatic biliary dilatation
-MRI with and without contrast results as above
-GI Consult appreciated
-Diet advanced but plan for n.p.o. after midnight for procedure tomorrow
-GI consult appreciated
-Atarax as needed
-Plan for EUS/ERCP on Thursday
Left hydronephrosis
-Might require urology evaluation after GI procedures completed.
Hx left breast cancer
-dx 2020
s/p lumpectomy, chemo and radiation
Hx Chron's with ostomy creation
DVT PPx SCD
FULL CODE
Anticipated Discharge: 24 - 48 hours
Subjective/Interval History
-
Date of Service: December 06, 2023
Patient complains of generalized itchiness. No abdominal pain nausea or vomiting. Patient ambulating on the hallway without difficulties. Afebrile.
Objective Data
-
Labs:
Laboratory Results
12/06/23
07:30
Total Bilirubin Pending
AST Pending
ALT Pending
Alkaline Phosphatase Pending
Vital Signs:
Vital Signs
Temp Pulse Resp BP Pulse Ox
98.3 F 77 28 113/70 99
12/06/23 07:11 12/06/23 07:11 12/06/23 07:11 12/06/23 07:11 12/06/23 07:11
I&O
12/05/23 12/06/23 12/07/23
06:59 06:59 06:59
Intake Total 1879 / 0 1490 / 1490
Balance 1879 / 1879 1490 / 1490
--- NOTE | 2023-12-06 09:00 | PTCARENOTE ---
pt aaox3. states no pain or sob. room air breath sounds clear. skin jaundice. pt walking halls. pt does have itchy skin wants to wait for prn med.
[2023-12-06 09:14] LABS: ALT (SGPT) 87 U/L (0-35); AST (SGOT) 57 U/L (14-36); Albumin 3.3 g/dl (3.5-5.0); Alkaline Phosphatase 151 U/L (38-126); Direct Bilirubin 6.2 mg/dl (0.0-0.4); Total Protein 5.9 g/dl (6.3-8.2)
--- NOTE | 2023-12-06 09:22 | W.PN.GI.CBS2 ---
Today's Communication / Plan
-
NPO at [place]
ERCP/EUS Thursday with Dr Powers
Assessment / Plan
-
The patient is a pleasant 78-year-old female with a past medical history significant for Crohn's disease s/p initial ileocecectomy with subsequent total colectomy and end ileostomy previously on 6-MP therapy (which she is off of), left sided breast
cancer dx March 2022 post lumpectomy (May 2022), chemotherapy (completed October 2022), and radiation, Vitamin B12 deficiency, iron deficiency, who presented to the hospital with complaints of painless jaundice and abnormal outpatient labs which we
are being asked to evaluate for.
Problem list:
-Painless jaundice
MRI with ? stone vs mass causing abrupt CBD obstruction
-Abnormal LFTs
-History of breast cancer March 2022
-History of Crohn's disease with ileocecectomy with total colectomy and end ileostomy, not on medications
-Chronic normocytic anemia, appears at baseline
Recommendations:
- Results of MRI d/w pt. Copy provided for her 12/04
- Plan for EUS/ERCP for possible stent FNA on Thursday with Dr Powers. Case d/w Dr Powers
- C/w Low fat diet. NPO at [place] on thursday
- Trend LFTs
- Sarna cream topically PRN itching ordered but not formulary
Will follow with you
Subjective
Subjective
Date of Service: December 06, 2023
Continues to have some itching. Denies abd pain, nausea/vomiting. Tolerating diet. Usual output from ostomy
Objective
Data Reviewed
Laboratory Data:
Laboratory Results
12/05/23 08:10
12/05/23 08:10
Laboratory Results
PT 11.8 Sec (11.4-14.6) 12/05/23 08:10
INR 0.88 12/05/23 08:10
Magnesium 2.0 mg/dl (1.6-2.3) 12/04/23 07:21
Total Bilirubin 8.0 mg/dl (0.2-1.3) H 12/06/23 07:30
AST 57 U/L (14-36) H 12/06/23 07:30
ALT 87 U/L (0-35) H 12/06/23 07:30
Alkaline Phosphatase 151 U/L (38-126) H 12/06/23 07:30
Vital Signs and I&O:
Vital Signs
Temp Pulse Resp BP Pulse Ox
98.3 F 77 28 113/70 99
12/06/23 07:11 12/06/23 07:11 12/06/23 07:11 12/06/23 07:11 12/06/23 07:11
I&O
12/05/23 12/06/23 12/07/23
06:59 06:59 06:59
Intake Total 1879 1490 / 1490
Balance 1879 1490 / 1490
Physical Exam
Physical Exam
GEN: No acute distress, conversant, pleasant
HEENT: +icteric, extraocular movements intact, clear oropharynx without exudates
GI: soft, non-distended, ostomy with green output, not tender to palpation, normal active bowel sounds, no hepatosplenomegaly
EXT: warm, well perfused, no edema bilaterally, diffusely jaundice
NEURO: AAOx3, non-focal
[2023-12-06] MEDS: ATARAX 25 MG PO ×2 (12:00→23:42)
[2023-12-06 15:15] VITALS: BP 110/65
[2023-12-06 23:30] VITALS: BP 110/67
[2023-12-07 07:19] LABS: Hematocrit 35.1 % (37.0-47.0); Hemoglobin 12.8 g/dL (12.0-16.0); Mean Corp Hgb Conc. 36.5 g/dL (33.0-37.0); Mean Corpuscular Hgb 32.4 pg (27.0-31.0); Mean Corpuscular Volume 88.9 fL (81.0-99.0); Mean Platelet Volume 9.5 fL (7.4-10.4); Platelet Count 277 10^3/uL (130-400); Red Blood Cell Count 3.95 10^6/uL (4.20-5.40); Red Cell Dist. Width 15.4 % (11.5-14.5); White Blood Cell Count 4.2 10^3/uL (4.8-10.8)
[2023-12-07 07:43] LABS: INR 0.87; PT 11.6 Sec (11.4-14.6)
[2023-12-07 07:49] LABS: ALT (SGPT) 82 U/L (0-35); AST (SGOT) 60 U/L (14-36); Albumin 3.8 g/dl (3.5-5.0); Alkaline Phosphatase 170 U/L (38-126); Blood Urea Nitrogen 15 mg/dl (7-17); Calcium 10.1 mg/dl (8.4-10.2); Carbon Dioxide 26 mmol/L (22-30); Chloride 100 mmol/L (98-107); Estimated Creatinine Clearance 72 ml/min; Glucose 86 mg/dl (70-99); Potassium 4.8 mmol/L (3.5-5.1); Sodium 133 mmol/L (135-145); Total Bilirubin 9.2 mg/dl (0.2-1.3); Total Protein 6.7 g/dl (6.3-8.2); eGFR > 60.00
[2023-12-07 07:54] VITALS: BP 96/64
--- NOTE | 2023-12-07 13:29 | W.PN.HOSP.TC ---
Today's Communication/Plan
-
.
Assessment / Plan
Assessment / Plan
Physical exam:
General: Well Developed, Well Nourished and No Apparent Distress
HEENT: Normocephalic, Atraumatic and Moist Mucous Membranes. Jaundice present
Respiratory: Clear to Auscultation; Negative Wheezes, Rales or Rhonchi
Cardiac: Regular Rhythm and S1/S2
GI: Soft, Nontender and Nondistended. Ostomy in place
Musculoskeletal: No Clubbing, No Cyanosis and No Edema
Neuro: Awake, Alert and Oriented
Psych: Calm
MRCP:
Dilated intra and extrahepatic biliary system, with abrupt termination of the distal common bile duct concerning for either a noncalcified gallstone or soft tissue mass/neoplasm within the duct. ERCP is recommended.
Distended gallbladder. Minimal pericholecystic fluid. No definite gallstones.
There is no pancreatic ductal dilatation.
Left hydronephrosis, similar to CT, new. Minimal cyst in the kidneys and liver.
Ostomy right lower quadrant.
A/P:
Painless Jaundice with T. Bili 7.7 upon admission with mild transaminitis
Severe intra and extrahepatic biliary dilatation
-MRI with and without contrast results as above
-GI Consult appreciated
-Diet advanced but plan for n.p.o. after midnight for procedure today, given IVF while NPO.
-Atarax as needed
-Plan for EUS/ERCP on Thursday
# Left hydronephrosis
No renal colic. Normal renal function. No hematuria
-Might require urology evaluation after GI procedures completed.
# Hyponatremia, mild
Given IVF
#Hx left breast cancer
-dx 2020
s/p lumpectomy, chemo and radiation
Primary oncologist is Dr. Duarte
#Hx Chron's with ostomy creation
#DVT PPx SCD
#FULL CODE
�Total time spent to see patient, examine the patient on the floor, review data and lab results, discuss treatment plan with patient, nursing staff around 55 minutes
Anticipated Discharge: 24 - 48 hours
Subjective/Interval History
-
Date of Service: December 07, 2023
No abd pain
No chest pain
Await GI procedure, NPO this morning
Objective Data
-
Labs:
Laboratory Results
12/07/23
06:39
WBC 4.2 L
Hgb 12.8
Hct 35.1 L
Plt Count 277 D
PT 11.6
INR 0.87
Sodium 133 L
Potassium 4.8
Chloride 100
Carbon Dioxide 26
BUN 15
Creatinine 0.5 L
Glucose 86
Calcium 10.1
Total Bilirubin 9.2 H
AST 60 H
ALT 82 H
Alkaline Phosphatase 170 H
Vital Signs:
Vital Signs
Temp Pulse Resp BP Pulse Ox
98.5 F 71 16 96/64 98
12/07/23 07:54 12/07/23 07:54 12/07/23 07:54 12/07/23 07:54 12/07/23 07:54
I&O
12/06/23 12/07/23 12/08/23
06:59 06:59 06:59
Intake Total 1490 / 1490 840 / 840
Balance 1490 / 1490 840 / 840
[2023-12-07] MEDS: D5/0.9% SODIUM CHLORIDE 1000 IV (14:13)
--- NOTE | 2023-12-07 14:56 | CM ---
Patient seen, reports waiting for procedures. Chart reviewed, per Gastroenterology note, ERCP/EUS for today. CM will continue to follow for discharge planning needs.
Plan; home no needs, watch for VN needs.
[2023-12-07 15:36] VITALS: BP 119/73
[2023-12-07 18:12] VITALS: BP 108/66; BP 116/66
[2023-12-07 18:15] VITALS: BP 119/71
[2023-12-07 18:30] VITALS: BP 128/71
[2023-12-07] MEDS: FOLVITE PO (22:57)
[2023-12-07 23:39] VITALS: BP 99/61
[2023-12-08] MEDS: D5/0.9% SODIUM CHLORIDE 1000 IV (02:25)
[2023-12-08 07:44] VITALS: BP 95/59
--- NOTE | 2023-12-08 07:54 | CON.ONC ---
Impression
Impression
painless jaundice, biliary stricture, s/p ERCP w/ sphincterotomy, stent, biopsy 12/07/23
triple negative breast cancer, stage IIIB, treated w/ lumpectomy, AC-T (finished 10/2022), and radiation
Crohn's disease, s/p ileocolectomy
Plan
Plan
Await path, tumor markers
If stable for discharge before path is finalized, will arrange f/u with Dr. Duarte in 1-2 weeks to review results and plan further mgmt
Patient History
History of Present Illness
This is a 78 yo F with history of triple negative breast cancer, treated with lumpectomy in late 2021, followed by adjuvant chemo and radiation, who presented with painless jaundice and pruritus. CT imaging showed severe intra and extrahepatic
biliary dilatation. She underwent ERCP on 12/06, revealing a malignant appearing stricture, which was biopsied, treated with sphincterotomy and stent. CA19-9 and CA27-29 are pending. Bilirubin is trending down, and she feels fairly well.
Past-Medical/Surgical History
Past Medical History
Past Medical History: Cancer (Breast cancer status postlumpectomy, chemotherapy, and radiation initial diagnosis March 2022) and Other (Crohn's disease with ileostomy (?Total colectomy), vitamin B12 deficiency, iron deficiency)
Past Surgical History: Bowel Resection (Crohn's disease s/p initial ileocecectomy with subsequent total colectomy and end ileostomy previously on 6-MP therapy) and Gynecological (Tubal ligation, breast lumpectomy)
Social History
Tobacco: Non-Smoker
Alcohol: None
Drug: None
Personal:
Living: With Family
Family History
Family History: Cancer (Mother, and maternal aunt with breast cancer) and Other (No family history of colon cancer, pancreatic cancer, or other GI cancers or disorders)
Patient Medication
�Medication �Instructions �Recorded �Confirmed �Last Taken �Type
alendronate 70 mg tablet (Fosamax) 70 mg PO WE@0800 05/15/22 12/03/23 12/02/23 History
cyanocobalamin (vitamin B-12) 1,000 mcg IM QMONTH Supplement 05/15/22 12/03/23 11/27/23 History
1,000 mcg/mL injection solution
ferrous sulfate 325 mg (65 mg 325 mg PO DAILY Supplement 05/15/22 12/03/23 05/15/22 History
iron) tablet (Iron (ferrous
sulfate))
Calcium 600 + D(3) 1 tab PO BID 12/03/23 12/03/23 12/03/23 History
fexofenadine 180 mg tablet 180 mg PO DAILY PRN itching 12/03/23 12/03/23 12/02/23 History
folic acid 800 mcg tablet 0.8 mg PO DAILY Supplement 12/03/23 12/03/23 Unknown History
turmeric 400 mg capsule 400 mg PO DAILY Supplement 12/03/23 12/03/23 12/02/23 History
Active Medications
Generic Name Dose Route Start Last Admin
Trade Name Freq PRN Reason Stop Dose Admin
Folic Acid 0.8 mg 12/04/23 08:00 12/07/23 22:57
Folic Acid 0.4 Mg Tablet PO 01/01/24 07:59 Not Given
DAILY FLORI
Hydroxyzine HCl 25 mg 12/04/23 18:36 12/06/23 23:42
Hydroxyzine 25 Mg Tablet PO 01/01/24 18:35 25 mg
[id number] PRN Administration
itching
Sarna Cream Apply 0 applic 12/05/23 10:45
Topically Q2h TOPICAL 01/02/24 10:44
Q2H FLORI
Sodium Chloride 0 flush 12/04/23 02:00
Sodium Chloride 0.9% (Flush) Syringe IV 01/01/24 01:59
PER PROTOCOL FLORI
Review of Systems
-
All Other Systems: Not reviewed unless documented
Physical Exam
-
General: Well Developed, Well Nourished, No Apparent Distress and Conversant; Negative Appears in Distress
HEENT: Jaundice
Skin: Warm, Dry and Jaundice
Psych: Calm and Intact Judgement/Insight
Labs
Lab Results
WBC 4.2 10^3/uL (4.8-10.8) L 12/07/23 06:39
RBC 3.95 10^6/uL (4.20-5.40) L 12/07/23 06:39
Hgb 12.8 g/dL (12.0-16.0) 12/07/23 06:39
Hct 35.1 % (37.0-47.0) L 12/07/23 06:39
MCV 88.9 fL (81.0-99.0) 12/07/23 06:39
MCH 32.4 pg (27.0-31.0) H 12/07/23 06:39
MCHC 36.5 g/dL (33.0-37.0) 12/07/23 06:39
RDW 15.4 % (11.5-14.5) H 12/07/23 06:39
Plt Count 277 10^3/uL (130-400) D 12/07/23 06:39
MPV 9.5 fL (7.4-10.4) 12/07/23 06:39
Abs Immat Gran (auto) 0.0 10^3/uL (0-0.05) 12/05/23 08:10
Absolute Neuts (auto) 1.7 10^3/uL (1.4-6.5) 12/05/23 08:10
Absolute Lymphs (auto) 0.8 10^3/uL (1.2-3.4) L 12/05/23 08:10
Absolute Monos (auto) 0.5 10^3/uL (0.1-0.6) 12/05/23 08:10
Absolute Eos (auto) 0.2 10^3/uL (0-0.7) 12/05/23 08:10
Absolute Basos (auto) 0.1 10^3/uL (0-0.2) 12/05/23 08:10
Immature Gran % 0.3 % (0-0.5) 12/05/23 08:10
Neutrophils % 54.0 % (42.2-75.2) 12/05/23 08:10
Lymphocytes % 24.8 % (20.5-51.1) 12/05/23 08:10
Monocytes % 14.3 % (1.7-9.3) H 12/05/23 08:10
Eosinophils % 5.0 % (0-6) 12/05/23 08:10
Basophils % 1.6 % (0-2) 12/05/23 08:10
Creatinine 0.5 mg/dL (0.6-1.0) L 12/07/23 06:39
Vital Signs
Vital Signs
Temp Pulse Resp BP Pulse Ox
98.1 F 70 16 95/59 97
12/08/23 07:44 12/08/23 07:44 12/08/23 07:44 12/08/23 07:44 12/08/23 07:44
[2023-12-08 08:21] LABS: Hematocrit 29.4 % (37.0-47.0); Hemoglobin 10.7 g/dL (12.0-16.0); Mean Corp Hgb Conc. 36.4 g/dL (33.0-37.0); Mean Corpuscular Hgb 32.6 pg (27.0-31.0); Mean Corpuscular Volume 89.6 fL (81.0-99.0); Mean Platelet Volume 9.9 fL (7.4-10.4); Platelet Count 250 10^3/uL (130-400); Red Blood Cell Count 3.28 10^6/uL (4.20-5.40); Red Cell Dist. Width 15.9 % (11.5-14.5)
[2023-12-08] MEDS: FOLVITE 0.800000000000000044 MG PO (09:03)
[2023-12-08 09:17] LABS: ALT (SGPT) 59 U/L (0-35); AST (SGOT) 48 U/L (14-36); Albumin 2.9 g/dl (3.5-5.0); Alkaline Phosphatase 134 U/L (38-126); Blood Urea Nitrogen 12 mg/dl (7-17); Calcium 8.1 mg/dl (8.4-10.2); Carbon Dioxide 24 mmol/L (22-30); Chloride 102 mmol/L (98-107); Estimated Creatinine Clearance 72 ml/min; Glucose 140 mg/dl (70-99); Potassium 4.2 mmol/L (3.5-5.1); Sodium 129 mmol/L (135-145); Total Bilirubin 7.2 mg/dl (0.2-1.3); Total Protein 5.3 g/dl (6.3-8.2); eGFR > 60.00
--- NOTE | 2023-12-08 10:37 | W.PN.HOSP.TC ---
Addendum entered and electronically signed by Vandana Lguo MD 12/08/23 17:01:
Addendum
Patient was started on low-fat diet. She tolerated diet well. No nausea or vomiting. No abdominal pain or fever. Patient was seen by [facility]. She will need to follow with result of biopsy and with [facility].
Discussed with patient regarding hyponatremia. Patient reported that she was doing low-salt diet at home. She was advised to follow regular diet increase protein intake. Patient wanted to go home.
Total discharge time spent to see patient, examine the patient on the floor, review data and lab results, discuss discharge plan with patient, nursing staff around 65 minutes
Addendum entered and electronically signed by Vandana Lugo MD 12/08/23 11:12:
Addendum
Mild to moderate protein-caloric malnutrition
End
Original Note:
Today's Communication/Plan
-
.
Assessment / Plan
Assessment / Plan
Physical exam:
General: Well Developed, Well Nourished and No Apparent Distress
HEENT: Normocephalic, Atraumatic and Moist Mucous Membranes. Jaundice present
Respiratory: Clear to Auscultation; Negative Wheezes, Rales or Rhonchi
Cardiac: Regular Rhythm and S1/S2
GI: Soft, Nontender and Nondistended. Ostomy in place
Musculoskeletal: No Clubbing, No Cyanosis and No Edema
Neuro: Awake, Alert and Oriented
Psych: Calm
MRCP:
Dilated intra and extrahepatic biliary system, with abrupt termination of the distal common bile duct concerning for either a noncalcified gallstone or soft tissue mass/neoplasm within the duct. ERCP is recommended.
Distended gallbladder. Minimal pericholecystic fluid. No definite gallstones.
There is no pancreatic ductal dilatation.
Left hydronephrosis, similar to CT, new. Minimal cyst in the kidneys and liver.
Ostomy right lower quadrant.
A/P:
Painless Jaundice with T. Bili 7.7 upon admission with mild transaminitis
Severe intra and extrahepatic biliary dilatation
-MRI with and without contrast results as above
-Status post ERCP with finding of severe biliary stricture status post biopsy, status post biliary sphincterotomy and stent placement by Dr. Powers on 12/07.
-Diet advanced , she tolerated liquid and feels hungry, will start low fat diet
-Atarax as needed
IgG4 and CA 19-9 are pending
Rule out IgG4 related sclerosing cholangitis
Appreciate GI help
# Left hydronephrosis
No renal colic. Normal renal function. No hematuria
-Might require urology evaluation after GI procedures completed.
# Hypocalcemia, mild
will give oral calcium
# Hyponatremia, mild
c/w regular diet, add sodium chloride tablets
#Hx left breast cancer
-dx 2020
s/p lumpectomy, chemo and radiation
Primary oncologist is Dr. Duarte
Appreciate oncology input
#Hx Chron's with ostomy creation
#DVT PPx SCD
#FULL CODE
�Total time spent to see patient, examine the patient on the floor, review data and lab results, discuss treatment plan with patient, oncology, nursing staff around 55 minutes
Anticipated Discharge: Within 24 hours
Subjective/Interval History
-
Date of Service: December 08, 2023
No abd pain
No nausea
would like to eat
Less itching
Objective Data
-
Labs:
Laboratory Results
12/08/23
07:04
WBC 4.0 L
Hgb 10.7 L
Hct 29.4 L
Plt Count 250
Sodium 129 L
Potassium 4.2
Chloride 102
Carbon Dioxide 24
BUN 12
Creatinine 0.5 L
Glucose 140 H
Calcium 8.1 L D
Total Bilirubin 7.2 H
AST 48 H
ALT 59 H
Alkaline Phosphatase 134 H
Vital Signs:
Vital Signs
Temp Pulse Resp BP Pulse Ox
98.1 F 70 16 95/59 97
12/08/23 07:44 12/08/23 07:44 12/08/23 07:44 12/08/23 07:44 12/08/23 07:44
I&O
12/07/23 12/08/23 12/09/23
06:59 06:59 06:59
Intake Total 840 / 840 1350 / 1350
Balance 840 / 840 1350 / 1350
--- NOTE | 2023-12-08 10:56 | W.PN.GI.CBS2 ---
Addendum entered and electronically signed by Byron Berman MD 12/08/23 14:24:
I saw and examined the patient.
The [employer] or PA's note was reviewed and I agree with the note.
Comment: No complaints
HEENT jaundiced
ABD soft NT
REC:
Malignant appearing CBD stricture s/p brushing, stent CBD/PD
Bili down from 9 to 7. LFTs improving
Await path
Oncology saw this am- sees Dr Duarte for hx breast ca
F/u with Dr Powers as outpt. Will notify path when comes back. OK for d/c from GI standpoint
Will sign off.
Original Note:
Today's Communication / Plan
-
reviewed again results of EUS and ERCP
biopsy pending
tolerating diet feeling well
LFT's trending down
await oncology input
no current crohns treatment
Ca 19-9 and IGG4 pending
sent message to arrange Dr. Powers 2 month follow up
if tolerating diet stable from Gi for discharged -- discussed to return with signs of obstruction, pain, fever, chills etc.
Assessment / Plan
-
The patient is a pleasant 78-year-old female with a past medical history significant for Crohn's disease s/p initial ileocecectomy with subsequent total colectomy and end ileostomy previously on 6-MP therapy and at some point remicade (which she is
off of), left sided breast cancer dx March 2022 post lumpectomy (May 2022), chemotherapy (completed October 2022), and radiation, Vitamin B12 deficiency, iron deficiency, who presented to the hospital with complaints of painless jaundice and abnormal
outpatient labs . 12/06 EUS/ERCP with concern for dilation of CBD up to 22 mm, no pathology of ampulla, no pathology of liver. severe biliary stricture lower third main bile duct with upper third and middle third dilation with concern for
malignancy. A pancreatic sphincterotomy was performed and One plastic stent was placed into the ventral pancreatic duct.A biliary sphincterotomy was performed. with CBD dilated and stent in CBD. bx completed.
Problem list:
-Painless jaundice
MRI with ? stone vs mass causing abrupt CBD obstruction
EUS/ERCP wtih concern for malignant stricture with pancreatic and biilary stenting
-Abnormal LFTs
-History of breast cancer March 2022
-History of Crohn's disease with ileocecectomy with total colectomy and end ileostomy, not on medications
-Chronic normocytic anemia, appears at baseline
Recommendations:
reviewed again results of EUS and ERCP
biopsy pending
tolerating diet feeling well
LFT's trending down
await oncology input
Ca 19-9 and IGG4 pending
no current Crohns treatment
sent message to arrange Dr. Powers 2 month follow up
if tolerating diet stable from Gi for discharged -- discussed to return with signs of obstruction, pain, fever, chills etc.
Subjective
Subjective
Date of Service: December 08, 2023
tolerating diet, minimal stool in ostomy
Objective
Data Reviewed
Laboratory Data:
Laboratory Results
12/08/23 07:04
12/08/23 07:04
Laboratory Results
PT 11.6 Sec (11.4-14.6) 12/07/23 06:39
INR 0.87 12/07/23 06:39
Magnesium 2.0 mg/dl (1.6-2.3) 12/04/23 07:21
Total Bilirubin 7.2 mg/dl (0.2-1.3) H 12/08/23 07:04
AST 48 U/L (14-36) H 12/08/23 07:04
ALT 59 U/L (0-35) H 12/08/23 07:04
Alkaline Phosphatase 134 U/L (38-126) H 12/08/23 07:04
Vital Signs and I&O:
Vital Signs
Temp Pulse Resp BP Pulse Ox
98.1 F 70 16 95/59 97
12/08/23 07:44 12/08/23 07:44 12/08/23 07:44 12/08/23 07:44 12/08/23 07:44
I&O
12/07/23 12/08/23 12/09/23
06:59 06:59 06:59
Intake Total 840 / 840 1350 / 1350
Balance 840 / 840 1350 / 1350
Physical Exam
Physical Exam
HEENT: Moist mucous membranes and Other (minimal jaundice)
Cardiology: Normal Sinus Rhythm
Pulmonary: Clear
GI: Soft, Non Distended, Non Tender and Other (no stool in ostomy)
Extremities: No Edema
Neuro: Non Focal
[2023-12-08] MEDS: D5/0.9% SODIUM CHLORIDE IV (13:08)
--- NOTE | 2023-12-08 14:24 | W.PN.UPDATE ---
Update Note
Progress Note Update
For billing purposes
[2023-12-08 15:29] VITALS: BP 106/58
--- NOTE | 2023-12-08 16:50 | W.DCSUMMARY ---
Discharge Summary
Discharge Data
Date of Admission: 12/03/23
Date of Discharge: 12/08/23
-
Pending Results: No
Hospital Course
78 years old female who presented to the emergency room with painless jaundice. Patient denied fever or chills. She denied nausea or vomiting or abdominal pain. Patient had history of left breast cancer and Crohn's disease. On admission, had
her sodium was 131, total bilirubin 7.5 with mildly elevated liver enzymes. Scan of the abdomen & pelvis showed new severe intra and extrahepatic biliary dilatation with gallbladder distention. Mild left hydronephrosis. She had normal kidney
function. Abdominal ultrasound showed hepatic fatty infiltration, distended gallbladder, associated intra and extrahepatic dilatation with no gallstones. Patient was evaluated by animal surgeon. She underwent abdominal magnetic resonance
imaging that showed dilated intra and extrahepatic biliary system with abrupt termination of the distal common bile duct concerning for either noncalcified gallstone or soft tissue mass/neoplasm. Patient underwent cholangiogram that showed severe
dilatation of the common bile duct proximal to an abrupt obstruction. Balloon dilatation of the obstructive stricture in the common bile duct was performed with placement of a plastic stent extended into the duodenum. She had 2 stents placed total
with one in the common bile duct and one in the pancreatic duct. Biopsy was done. Patient tolerated the procedure well. Diet was advanced slowly with no complications. Patient started to feel better with less itching and improvement in liver
enzymes. Patient was noted to have hyponatremia since September this year. Patient reported that she was avoiding salt in her diet. She was advised to continue regular diet and to increase her protein intake. Patient was going to follow-up with
her primary care doctor. She did not have confusion. Patient was evaluated by oncology. Primary oncologist Dr. Duarte.. Patient was advised to follow-up with doctors after discharge. She remained hemodynamically stable and was discharged in
a stable condition.
Discharge Plan
-
Patient Disposition: Home (Routine Discharge)
Discharge Diagnosis/Procedures: Painless jaundice. 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 Powers on 12/07/23.
Mild left hydronephrosis with hyponatremia, normal kidney function. Please follow with your primary care doctor.
Diet: Low Fat
Others Tests: return to ER for any increased chills, fever, jaundice, or increased abdominal pain
Referrals:
Ronald Powers MD [Active] - (call next week to review pathology. Will need 2 month follow up)
David Figueroa MD [Family Provider] - in one to two weeks
Prescriptions:
New
hydroxyzine HCl 25 mg Tablet
25 mg PO [id number] PRN (Reason: itching) Qty: 20 0RF
Continued
alendronate [Fosamax] 70 mg Tablet
70 mg PO WE@0800
cyanocobalamin (vitamin B-12) 1,000 mcg/mL Solution
1,000 mcg IM QMONTH
ferrous sulfate [Iron (ferrous sulfate)] 325 mg (65 mg iron) Tablet
325 mg PO DAILY
fexofenadine 180 mg Tablet
180 mg PO DAILY PRN (Reason: itching)
folic acid 800 mcg Tablet
0.8 mg PO DAILY
turmeric 400 mg Capsule
400 mg PO DAILY
Calcium 600 + D(3)
1 tab PO BID
Discharge Orders:
Discharge Patient (As Directed); Ordered 12/08/23
Ordered By: Vandana Lugo
Discharge Date and Time
Print Language: MONEGASQUE
[2023-12-09 22:44] LABS: CA 19-9 946 U/mL (<=35)
[2023-12-10 01:40] LABS: IgG Subclass 4 1 mg/dL (1-123)
== END 2023-12-08 18:30 | disposition home or self-care (01) | DRG 445 ==
LOC: 4 WEST ACU 22:53
PROVIDERS: Hospitalist; Internal Medicine Gastroenterology; ADMITTING PHYSICIAN Student in an Organized Health Care Education/Training Program; ATTENDING PHYSICIAN Internal Medicine; CONSULT PHYSICIAN Internal Medicine Gastroenterology; EMERGENCY PHYSICIAN Emergency Medicine; FAMILY PHYSICIAN Internal Medicine; OTHER PHYSICIAN Internal Medicine Hematology & Oncology
PROC: 0FB98ZX Excision of Common Bile Duct, Via Natural or Artificial Opening Endoscopic, Diagnostic (ICD-10-PCS; 2023-12-07)
PROC: 0F798DZ Dilation of Common Bile Duct with Intraluminal Device, Via Natural or Artificial Opening Endoscopic (ICD-10-PCS; 2023-12-07)
PROC: 0F7D8DZ Dilation of Pancreatic Duct with Intraluminal Device, Via Natural or Artificial Opening Endoscopic (ICD-10-PCS; 2023-12-07)
DX: K83.1 Obstruction of bile duct (principal); E44.0 Moderate protein-calorie malnutrition; E87.1 Hypo-osmolality and hyponatremia; K50.90 Crohn's disease, unspecified, without complications; N13.30 Unspecified hydronephrosis; Z68.1 Body mass index [BMI] 19.9 or less, adult; K83.9 Disease of biliary tract, unspecified
CPT/HCPCS: 88305; 36415; 74177; 74183; 74330; 76000; 76705; 80053; 80076; 82787; 83735; 85025; 85027; 85610; 86300; 86301; 88112; 88342; 88360; 99285; A9575; C1726; C1769; C2617; Q9967

== ENCOUNTER → 2023-12-11 07:52 | Outpatient (REF) | payer MEDICARE, OTHER, SELFPAY ==
[2023-12-11 09:02] LABS: % Basophils 1.7 % (0-2); % Immature Granulocytes 0.2 % (0-0.5); % Lymphocytes 25.7 % (20.5-51.1); % Monocytes 15.7 % (1.7-9.3); % Neutrophils 51.7 % (42.2-75.2); Absolute Basophils 0.1 10^3/uL (0-0.2); Absolute Eosinophils 0.2 10^3/uL (0-0.7); Absolute Lymphocytes 1.1 10^3/uL (1.2-3.4); Absolute Monocytes 0.7 10^3/uL (0.1-0.6); Absolute Neutrophils 2.2 10^3/uL (1.4-6.5); Hematocrit 33.1 % (37.0-47.0); Hemoglobin 11.7 g/dL (12.0-16.0); Mean Corp Hgb Conc. 35.3 g/dL (33.0-37.0); Mean Corpuscular Hgb 32.1 pg (27.0-31.0); Mean Corpuscular Volume 90.9 fL (81.0-99.0); Mean Platelet Volume 9.8 fL (7.4-10.4); Nucleated Red Blood Cells % 0 %; Platelet Count 317 10^3/uL (130-400); Red Blood Cell Count 3.64 10^6/uL (4.20-5.40); Red Cell Dist. Width 16.7 % (11.5-14.5); White Blood Cell Count 4.2 10^3/uL (4.8-10.8)
[2023-12-11 09:35] LABS: ALT (SGPT) 59 U/L (0-35); AST (SGOT) 54 U/L (14-36); Albumin 3.4 g/dl (3.5-5.0); Alkaline Phosphatase 140 U/L (38-126); Blood Urea Nitrogen 10 mg/dl (7-17); Calcium 9.1 mg/dl (8.4-10.2); Carbon Dioxide 28 mmol/L (22-30); Chloride 102 mmol/L (98-107); Glucose 86 mg/dl (70-99); Potassium 4.1 mmol/L (3.5-5.1); Sodium 133 mmol/L (135-145); Total Bilirubin 5.4 mg/dl (0.2-1.3); Total Protein 6.1 g/dl (6.3-8.2); eGFR > 60.00
== END ==
LOC: REG 07:52
PROVIDERS: ATTENDING PHYSICIAN Internal Medicine; OTHER PHYSICIAN Internal Medicine Gastroenterology; REFERRING PHYSICIAN Internal Medicine Hematology & Oncology
DX: R17 Unspecified jaundice (principal); C50.919 Malignant neoplasm of unspecified site of unspecified female breast; K50.919 Crohn's disease, unspecified, with unspecified complications
CPT/HCPCS: 36415; 80053; 85025

== ENCOUNTER → 2023-12-18 07:11 | Outpatient (REF) | payer MEDICARE, OTHER, SELFPAY ==
[2023-12-18 07:46] LABS: % Basophils 2.1 % (0-2); % Immature Granulocytes 0.5 % (0-0.5); % Lymphocytes 26.1 % (20.5-51.1); % Monocytes 12.8 % (1.7-9.3); % Neutrophils 54.5 % (42.2-75.2); Absolute Basophils 0.1 10^3/uL (0-0.2); Absolute Eosinophils 0.2 10^3/uL (0-0.7); Absolute Monocytes 0.5 10^3/uL (0.1-0.6); Hematocrit 36.7 % (37.0-47.0); Hemoglobin 12.7 g/dL (12.0-16.0); Mean Corp Hgb Conc. 34.6 g/dL (33.0-37.0); Mean Corpuscular Hgb 32.4 pg (27.0-31.0); Mean Corpuscular Volume 93.6 fL (81.0-99.0); Mean Platelet Volume 9.2 fL (7.4-10.4); Nucleated Red Blood Cells % 0 %; Platelet Count 370 10^3/uL (130-400); Red Blood Cell Count 3.92 10^6/uL (4.20-5.40); Red Cell Dist. Width 16.3 % (11.5-14.5); White Blood Cell Count 3.8 10^3/uL (4.8-10.8)
[2023-12-18 08:40] LABS: ALT (SGPT) 91 U/L (0-35); AST (SGOT) 97 U/L (14-36); Albumin 4.1 g/dl (3.5-5.0); Alkaline Phosphatase 116 U/L (38-126); Blood Urea Nitrogen 13 mg/dl (7-17); Calcium 9.9 mg/dl (8.4-10.2); Carbon Dioxide 27 mmol/L (22-30); Chloride 101 mmol/L (98-107); Direct Bilirubin 2.2 mg/dl (0.0-0.4); Glucose 89 mg/dl (70-99); Sodium 134 mmol/L (135-145); Total Bilirubin 3.4 mg/dl (0.2-1.3); eGFR > 60.00
[2023-12-18 09:08] LABS: CEA 6.42 ng/ml
[2023-12-19 16:30] LABS: CA 27-29 33.3 U/mL (<=39.0)
[2023-12-20 15:33] LABS: CA 19-9 83 U/mL (<=35)
== END ==
LOC: REG 07:11
PROVIDERS: ATTENDING PHYSICIAN Internal Medicine Hematology & Oncology; OTHER PHYSICIAN Internal Medicine Gastroenterology; REFERRING PHYSICIAN Internal Medicine
DX: C50.212 Malignant neoplasm of upper-inner quadrant of left female breast (principal); N83.292 Other ovarian cyst, left side; L03.112 Cellulitis of left axilla; L76.34 Postprocedural seroma of skin and subcutaneous tissue following other procedure; G90.09 Other idiopathic peripheral autonomic neuropathy; C24.0 Malignant neoplasm of extrahepatic bile duct
CPT/HCPCS: 36415; 80048; 80076; 82378; 85025; 86300; 86301

== ENCOUNTER → 2023-12-22 07:25 | Outpatient (REF) | payer MEDICARE, OTHER, SELFPAY | LOC: HWRAD 07:25 | PROVIDERS: ATTENDING PHYSICIAN Internal Medicine Hematology & Oncology; FAMILY PHYSICIAN Internal Medicine | DX: C50.212 Malignant neoplasm of upper-inner quadrant of left female breast (principal); N83.292 Other ovarian cyst, left side; L03.112 Cellulitis of left axilla; L76.34 Postprocedural seroma of skin and subcutaneous tissue following other procedure; G90.09 Other idiopathic peripheral autonomic neuropathy | CPT/HCPCS: 71260; Q9967 ==

== ENCOUNTER 2024-02-24 17:34 | Inpatient (IN) | payer MEDICARE, OTHER, SELFPAY ==
[2024-02-24] VITALS (29 sets, daily range): BP systolic 69–138; BP diastolic 64–90
[2024-02-24] MEDS: VANCOCIN 200 IV (10:29)
--- NOTE | 2024-02-24 13:33 | W.PN.UPDATE ---
Update Note
Progress Note Update
Patient was bleeding more than usual during port placement. Ultrasound was repeated during the procedure, which showed the vascular access point to be well away from the common carotid artery. The port tubing was noted to be on the right side of the
chest during the procedure, both suggesting venous access point.
After the procedure, a hematoma developed of the chest wall, and concern was raised about intraarterial position of the catheter. A CTA chest was obtained, which showed the vascular access point was in fact the right subclavian artery, in the area
of the vertebral and SUMA takeoff. Following discussion with Dr. Masters of vascular surgery, decision was made to remove the port and catheter via direct cutdown, in order to repair the 9 Turkish arteriotomy and preserve the right vertebral artery.
She has remained hemodynamically stable, as the catheter is currently plugging the hole in the artery.
Discussed the situation, and options for safe catheter removal, with the patient and her .
--- NOTE | 2024-02-24 14:20 | PTCARENOTE ---
IRAD note: CTA result reviewed by . patient updated on POC by Dr. Hill. report given to vascular OR nurse Ning. Type and screen done per vascular nurse request. waiting for vascular OR nurse to take pt to OR.
[2024-02-24] MEDS: BACTROBAN 2% OINTMENT 2 APPLIC NASAL (16:33)
[2024-02-24] MEDS: PERIDEX 0.12% ORAL RINSE 15 ML PO (16:34)
[2024-02-24 17:47] LABS: Hematocrit 32.8 % (37.0-47.0); Hemoglobin 11.3 g/dL (12.0-16.0); Mean Corp Hgb Conc. 34.5 g/dL (33.0-37.0); Mean Corpuscular Hgb 32.7 pg (27.0-31.0); Mean Corpuscular Volume 94.8 fL (81.0-99.0); Mean Platelet Volume 8.9 fL (7.4-10.4); Platelet Count 185 10^3/uL (130-400); Red Blood Cell Count 3.46 10^6/uL (4.20-5.40); White Blood Cell Count 6.9 10^3/uL (4.8-10.8)
[2024-02-24 17:54] LABS: INR 1.04; PT 13.6 Sec (11.4-14.6)
[2024-02-24 17:55] LABS: APTT 27.8 Sec (23.4-35.0)
[2024-02-24 18:01] LABS: Blood Urea Nitrogen 13 mg/dl (7-17); Calcium 9.5 mg/dl (8.4-10.2); Carbon Dioxide 24 mmol/L (22-30); Chloride 106 mmol/L (98-107); Estimated Creatinine Clearance 72 ml/min; Glucose 94 mg/dl (70-99); Potassium 3.9 mmol/L (3.5-5.1); Sodium 138 mmol/L (135-145); eGFR > 60.00
--- NOTE | 2024-02-24 18:43 | W.SUR.POST ---
Surgical Immediate Post Op
Note
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
Post Op Diagnosis: Right subclavian artery injury
Procedure Performed: Right subclavian artery repair with port removal
Primary Surgeon: Patrice Masters MD
physicians assistant: Kaela Adames, MEDICAL MANAGEMENT SPECIALIST-C
Anesthesia: GETA
Estimated Blood Loss: 10 mL
Fluids: See anesthesia flowsheet
Drains/Shunts: N/A
Specimens/Cultures: Port
Doppler/Duplex/Angio (Y/N): N/A
Complications: None
Operative Findings: Successful repair of subclavian artery
--- NOTE | 2024-02-24 18:51 | CON.VAS ---
Consultation
Consultation Request
Date/Time Consultation Performed: 02/24/2024
Requesting Provider: Simón Hill MD
Performing Provider: Kaela Adames NP-C for Patrice Masters MD
Reason for Consultation: Right subclavian artery injury via placement of port
Medical History
-
Chief Complaint: Right subclavian artery injury via placement of port
History of Present Illness:
This is a 78-year-old female with history of breast cancer, now liver metastases noted, Crohn's disease, and vitamin B12 deficiency who was scheduled for port placement for chemotherapy. She underwent procedure with Dr. Simón Hill in IR when a
concerning hematoma developed prompting IR team to obtain CT angio, which confirmed placement in subclavian artery; prompting vascular surgery consultation. Patient was in no distress, and comfortable.
Past Medical History
Past Medical History: Cancer (Breast cancer status postlumpectomy, chemotherapy, and radiation initial diagnosis March 2022) and Other (Crohn's disease with ileostomy, iron deficiency, vitamin B12 deficiency)
Past Surgical History: Bowel Resection (Crohn's disease s/p initial ileocecectomy with subsequent total colectomy and end ileostomy previously on 6-MP therapy) and Gynecological (Tubal ligation, breast lumpectomy)
Social History
Tobacco: Non-Smoker
Alcohol: None
Drug: None
Personal:
Living: With Family
Allergies / Home Medications
Allergy/AdvReac Type Severity Reaction Status Date / Time
infliximab [From Remicade] Allergy Neuropathy, Verified 02/24/24 16:39
hair loss
mesalamine Allergy Vomiting Verified 02/24/24 16:39
Penicillins Allergy Hives, Verified 02/24/24 10:07
Inability
to move LE
�Medication �Instructions �Recorded �Confirmed �Type
alendronate 70 mg tablet (Fosamax) 70 mg PO WE@0800 05/15/22 02/24/24 History
cyanocobalamin (vitamin B-12) 1,000 mcg IM QMONTH Supplement 05/15/22 02/24/24 History
1,000 mcg/mL injection solution
ferrous sulfate 325 mg (65 mg 325 mg PO DAILY Supplement 05/15/22 02/24/24 History
iron) tablet (Iron (ferrous
sulfate))
calcium carbonate 600 mg-vitamin 1 tab PO BID ##0 12/03/23 02/24/24 History
D3 10 mcg (400 unit) tablet
(Calcium with Vitamin D)
folic acid 800 mcg tablet 0.8 mg PO DAILY Supplement 12/03/23 02/24/24 History
turmeric 400 mg capsule 400 mg PO DAILY Supplement 12/03/23 02/24/24 History
multivitamin 1 tab PO DAILY 02/24/24 02/24/24 History
Review of Systems
-
History Source: Patient
Constitutional: Reports No Symptoms
EENT: Reports No Symptoms
Respiratory: Reports No Symptoms
Cardiac: Reports No Symptoms
Abdomen/GI: Reports No Symptoms
: Reports No Symptoms
Musculoskeletal: Reports No Symptoms
Skin: Reports No Symptoms
Neurological: Reports No Symptoms
Endocrine: Reports No Symptoms
Physical Exam
Vital Signs
Temp Pulse Resp BP Pulse Ox
98.3 F 78 13 138/82 99
02/24/24 16:10 02/24/24 16:10 02/24/24 16:10 02/24/24 16:10 02/24/24 16:10
Lab Results
02/24/24 17:31
02/24/24 17:31
Physical Exam
General: No Apparent Distress and Comfortable
HEENT: Normocephalic, Anicteric and Atraumatic
Respiratory: Non Labored Respirations
Cardiac: Negative JVD
GI: Soft, Non Tender and Non Distended
Musculoskeletal: No Edema and Other (+2 right radial pulse)
Skin: Warm and Dry
Neuro: AO x 3
Assessment / Plan
-
Assessment: 78-year-old female status post port placement for chemotherapy with inadvertent intra-arterial catheter placement at subclavian artery
Plan:
Recommend direct surgical cutdown and exposure and remove the catheter. Dr. Patrice Masters discussed with patient the procedure. Discussed risks including but not limited to bleeding, infections, cranial nerve or other nerve injury (brachial plexus as
well), thoracic duct leak or lymphatic leak, need for urgent sternotomy. She understands all this and wishes to proceed. Discussed with patient's as well as per her reqeust - he understands all and wishes to proceed.
Will proceed to the OR emergently
N.p.o.
I performed this shared service with the attending. I evaluated the patient [id number] and have entered clinical documentation as shown in the encounter note. I performed the following component(s): history and physical exam. Note that medical
decision making is not final until attested by vascular attending.
[2024-02-24] MEDS: DILAUDID 0.25 MG IV (19:28)
[2024-02-24] MEDS: NSS 1000 IV (19:30)
--- NOTE | 2024-02-24 19:32 | OR.RPT ---
Operative Report
Operative Report
PROCEDURE DATE: 02/24/2024
Preoperative diagnosis: Iatrogenic right subclavian artery cannula placement (port placement).
Postoperative diagnosis: Same
Procedure:
1. Exploration right neck/exposure right subclavian artery with removal of intra-arterial catheter.
2. Primary repair of right subclavian artery with ligation of right internal mammary artery catheter entry site.
3. Removal of entirety of port.
Surgeon: Guerrero
Overcaster: PHUONG Adames, required for all aspects of procedure including traction/countertraction, assistance with suture following, assistance with closure.
Complications: None
Anesthesia: General
Indications for procedure:
Patient had undergone port placement today and was noted to have inadvertent cannulation of right subclavian artery. CT scan confirmed. Due to proximity of vertebral artery, I did not advise endovascular solutions with stent or ballooning, and was
recommending surgical repair. Risk/benefits/alternatives were all fully discussed. Patient understood all wish to proceed. I discussed with her as well. He understood all wish to proceed.
Description of procedure:
Patient was identified brought to the operating room placed on the table in supine position. After the adequate administration of anesthesia she was prepped and draped in the standard surgical fashion. A standard preoperative timeout was
undertaken and everybody was in agreement the plan. A transverse incision was made about 1 fingerbreadth superior to the clavicle extending from the lateral edge of the clavicular head of the sternocleidomastoid muscle about 6 to 8 cm laterally.
This was carried through the skin subcutaneous tissue and through the platysma muscle layer. Once I crossed through the platysma muscle layer, I noted blood staining of the tissues. This made dissection more challenging here. I divided a few of
the fibers of the sternal head of the sternocleidomastoid muscle (the clavicular head was maintained fully intact). This facilitated exposure slightly. The majority/bulk of the sternal head of the sternocleidomastoid was maintained without
division of it however. As the anatomic structures were more difficult to identify. I identified and dissected the lateral aspect of a vein that initially I thought was the internal jugular vein. However, it did appear somewhat superficial and
joint another branch. This made me suspect that this was an external jugular vein. I dissected slightly deeper and confirm this and identified the internal jugular vein. I therefore then dissected on the lateral aspect of the internal jugular
vein. As such I identified the scalene fat pad and began mobilizing the scalene fat pad. Any concerning lymphatic structures were ligated between silk ties and divided. I reflected the scalene fat pad laterally. I difficulty identifying the
anterior scalene muscle here due to the blood staining. But I could see the cannula at the base of the surgical field, and could identify the subclavian artery. I felt therefore that I was medial to the anterior scalene muscle. I then carefully
dissected the subclavian artery in the vicinity of the cannula entry site. The thyrocervical trunk was identified and circumferentially carefully dissected and a vessel loop passed around it. The subclavian artery proximal to here was carefully
circumferentially dissected and a vessel loop passed around it. Distally now I was able to dissect distal to the cannula entry site the subclavian artery, and was able to circumferentially dissected and passed a vessel loop around it here. I knew
that the vertebral artery was on the opposite aspect of the subclavian artery to the cannula entry site and therefore carefully dissected there was able to identify the vertebral artery and carefully circumferentially dissected and passed a vessel
loop around it. 2 of the lateral coursing branches of the thyrocervical trunk (small branches) were ligated between silk ties and divided to allow exposure of the distal subclavian so that I could gain distal control as I had. I give the patient
4000 units of intravenous heparin. I placed a Derra clamp on the proximal subclavian artery and tightened my doubly Vesseloops distally. The other Vesseloops were also double looped and tightened on the branches. I now removed the cannula and
tightened down my clamp (Derra clamp) on the subclavian artery proximally as the cannula was completely removed. It was removed in its entirety. (Note it was still attached to the port hub on the separate chest wall incision slightly more
inferiorly). Now I noted the bleeding point/entry site was at the origin of the internal mammary artery. The internal mammary artery was somewhat avulsed there (I did gain distal control of the internal mammary artery and placed a clamp on it
distally). I tried initially to primarily suture the defect, but the artery wall was very thin denied concern about viability. I therefore then ligated the origin of the internal mammary artery proximally. At this point I achieved full
hemostasis. I then released all my Vesseloops and clamps on the subclavian artery. I now good pulsatile flow again in the subclavian artery and no evidence of bleeding from the injury site. At this point I irrigated and was able to more easily
visualized and confirmed the anterior scalene just lateral to where I had dissected here. (Note I had not needed to transect the anterior scalene muscle), and the phrenic nerve was visualized and noted to be intimately overlying the anterior
surface of the anterior scalene as it usually is, and had clearly been preserved from harm's way. At this point I was very satisfied.
I then opened the incision using a 15 blade of the port hub placement on the chest wall slightly more inferiorly. The suture in the deep dermal tissue was cut with scissor. I then was able to grasp the port hub and then pulled the port about as
well as the attached entirety of the cannula which flossed out of the supraclavicular incision I had made. I now irrigated both incision sites. Hemostasis was fully noted. The supraclavicular incision site was closed with running 3-0 Vicryl for
the platysma muscle layer followed by 4-0 Monocryl subcuticular stitch. The port hub placement/removal site was closed with 3-0 Vicryl deep dermal (as well as 3-0 Vicryl to try to close off the small space created by the port) followed by 4-0
Monocryl subcuticular stitch. Dermabond was applied. The patient tolerated procedure well. She had good palpable right radial pulse upon completion.
--- NOTE | 2024-02-24 21:30 | PTCARENOTE ---
Pt arrived from PACU ~2029. Pt in bed, AAO3. Pt reports slight discomfort to R neck/upper chest area, rating discomfort 3/10 on a 0-10 pain scale, denies desire for pain medication. Complete CHG bath provided. Lung sounds are clear, pox 96-98% on
room air, denies SOB/cough. Telemetry rhythm reveals SR, HR 70's, no peripheral edema noted, palpable peripheral pulses present. HypoBS, abdomen soft nontender. Pt has ileostomy, no output at this time. Pt is ordered bedrest, aware of activity
restrictions. Pt had prior abdominal procedure, incision NANCY w steri strips. Pt's R upper chest/neck area incisions PHOTOGRAPHER'S ASSISTANT w surgical glue; ice pack applied per order. R AC int with IVF per order, R hand int capped. L radial arterial line transduced,
zeroed and flushed, correlation with noninvasive BP cuff within 10mmHg. Pt's spouse at bedside. Call madera within reach, safe environment maintained. Will monitor closely.
[2024-02-24] MEDS: HEPARIN 5000 UNITS SC (21:52)
[2024-02-24] MEDS: OSCAL 500 + D 500 MG PO (21:52)
[2024-02-25] VITALS (10 sets, daily range): BP systolic 91–124; BP diastolic 56–81; BMI 19.1
[2024-02-25] MEDS: TYLENOL 650 MG PO (00:04)
--- NOTE | 2024-02-25 00:30 | PTCARENOTE ---
Continuing neuro and neurovasc checks as ordered. Pt sleeping when undisturbed. No change in assessment. Will continue to monitor.
[2024-02-25] MEDS: NSS 1000 IV (03:31)
[2024-02-25 04:42] LABS: Hemoglobin 11.3 g/dL (12.0-16.0); Mean Corp Hgb Conc. 34.2 g/dL (33.0-37.0); Mean Corpuscular Hgb 32.5 pg (27.0-31.0); Mean Corpuscular Volume 94.8 fL (81.0-99.0); Mean Platelet Volume 8.9 fL (7.4-10.4); Platelet Count 184 10^3/uL (130-400); Red Blood Cell Count 3.48 10^6/uL (4.20-5.40); Red Cell Dist. Width 12.9 % (11.5-14.5); White Blood Cell Count 5.3 10^3/uL (4.8-10.8)
[2024-02-25 04:52] LABS: INR 1.09; PT 14.1 Sec (11.4-14.6)
[2024-02-25 04:54] LABS: APTT 28.5 Sec (23.4-35.0)
--- NOTE | 2024-02-25 05:00 | PTCARENOTE ---
Pt sleeping when undisturbed, no complaints offered. Pt emptied ileostomy with minimal assistance for 150ml stool. Voided >200ml urine on bedpan. Will continue to monitor.
[2024-02-25 05:06] LABS: Blood Urea Nitrogen 13 mg/dl (7-17); Calcium 8.6 mg/dl (8.4-10.2); Carbon Dioxide 25 mmol/L (22-30); Chloride 105 mmol/L (98-107); Estimated Creatinine Clearance 74 ml/min; Glucose 141 mg/dl (70-99); Potassium 4.3 mmol/L (3.5-5.1); Sodium 134 mmol/L (135-145); eGFR > 60.00
--- NOTE | 2024-02-25 07:06 | CON.INTV ---
Consultation
Consultation Request
Date/Time Consultation Requested: 02/24
Date/Time Consultation Performed: 02/24
Reason for Consultation: Critical care
Medical History
-
History of Present Illness:
History obtained from the patient and reviewing hospital records. Patient is a pleasant 78-year-old female with history of metastatic breast cancer. This was diagnosed in 2021, status postlumpectomy/radiation/chemotherapy. She was then found to
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 He was found to have features consistent with metastatic breast cancer. She had her gallbladder taken out at that time. She has a chronic ileostomy
from 20+ years ago, history of Crohn's. She presents for port placement complicated by arterial bleed prompting vascular repair. She was admitted to ICU postsurgery. Presently she is feeling well. She denies shortness of breath, chest pain,
nausea, headaches, vision changes. She appears to be in good spirits
.
PMH: Breast cancer status postlumpectomy/chemotherapy/radiation March 2022, with recurrence involving biliary tree identified January 2024. History of Crohn's disease with ileostomy for 20+ years, anemia
Past Medical History
Past Medical History: None (See above)
Past Surgical History: None (See above)
Social History
Tobacco: Non-smoker
Alcohol: None (Quit 2021)
Drug: None
Personal:
Living: With Family
Employment: Retired (bilingual kindergarten teacher)
Family History
Family History: Other (2 children healthy. Parents at an elderly age. Family history negative for lung disease)
Allergies / Home Medications
Allergies
Allergy/AdvReac Type Severity Reaction Status Date / Time
infliximab [From Remicade] Allergy Neuropathy, Verified 02/24/24 16:39
hair loss
mesalamine Allergy Vomiting Verified 02/24/24 16:39
Penicillins Allergy Hives, Verified 02/24/24 10:07
Inability
to move LE
Home Medications
�Medication �Instructions �Recorded �Confirmed �Last Taken �Type
alendronate 70 mg tablet (Fosamax) 70 mg PO WE@0800 05/15/22 02/24/24 12/02/23 History
cyanocobalamin (vitamin B-12) 1,000 mcg IM QMONTH Supplement 05/15/22 02/24/24 11/27/23 History
1,000 mcg/mL injection solution
ferrous sulfate 325 mg (65 mg 325 mg PO DAILY Supplement 05/15/22 02/24/24 05/15/22 History
iron) tablet (Iron (ferrous
sulfate))
calcium carbonate 600 mg-vitamin 1 tab PO BID ##0 12/03/23 02/24/24 12/03/23 History
D3 10 mcg (400 unit) tablet
(Calcium with Vitamin D)
folic acid 800 mcg tablet 0.8 mg PO DAILY Supplement 12/03/23 02/24/24 Unknown History
turmeric 400 mg capsule 400 mg PO DAILY Supplement 12/03/23 02/24/24 12/02/23 History
multivitamin 1 tab PO DAILY 02/24/24 02/24/24 Unknown History
Review of Systems
-
All other systems: Negative unless noted
Vitals / Labs / Diagnostic Testing
Vital Signs
Temp Pulse Resp BP Pulse Ox
97.7 F 64 15 103/56 97
02/25/24 03:51 02/25/24 06:00 02/25/24 06:00 02/25/24 04:00 02/25/24 06:00
Lab Data
02/25/24 04:25
02/25/24 04:25
Laboratory Results
02/24/24 02/25/24
17:31 04:25
PT 13.6 14.1
INR 1.04 1.09
APTT 27.8 28.5
Diagnostic Testing:
Physical Exam
-
HEENT: Normocephalic, Anicteric and Other (Right subclavian incision intact)
Cardiovascular: S1/S2, Regular Rhythm, Murmur (n), Rub (n), Peripheral Edema (n) and Calf Tenderness (n)
Respiratory: Wheeze (n), Rales (n), Rhonchi (n) and Non-Labored Respirations
GI: Soft, Non Distended, Non Tender and Other (Ileostomy intact, recent sutures from abdominal surgery)
Neurology: Awake, Alert, Oriented, No Motor Deficits (Moves all extremities) and Other (Cranial nerves grossly intact)
Skin: Good Color
General: Comfortable (Conversant in good spirits)
Assessment
-
78-year-old female with history of metastatic breast cancer, admitted for port placement complicated by arterial bleed. Patient required vascular repair, admitted to ICU overnight.
Status post intra-arterial port removal
Primary repair of right subclavian artery
Port placement 02/23 per IR
Metastatic breast cancer, triple negative
Initially diagnosed March 2022
Lumpectomy, chemo/radiation
Now with recurrence, liver metastases
History of Crohn's disease
Ileostomy around 1999
Plan/recommendations
At this time, patient is comfortable without complaints. Neurological exam intact
Hemodynamically stable overnight
Right subclavian incision intact
Moving forward
Wound care per vascular surgery
Out of bed to chair, ambulate
A-line to be discontinued
Suspect will be discharged later today
Follow-up with oncology (Gerald)
Disposition efforts
Reviewed with critical care nursing
[2024-02-25] MEDS: THERAGRAN 1 TABLET PO (08:21)
[2024-02-25] MEDS: OSCAL 500 + D 500 MG PO (08:21)
[2024-02-25] MEDS: HEPARIN 5000 UNITS SC (08:21)
[2024-02-25] MEDS: FEOSOL 325 MG PO (08:21)
[2024-02-25] MEDS: FOLVITE 0.800000000000000044 MG PO (08:21)
--- NOTE | 2024-02-25 08:47 | PTCARENOTE ---
recd pt, OOB to chair, tolerated, art line zero and bar. seen by Dr. Masters. assessment benign, surgical adhesive R neck, R clavicle intact, bruised, no hematoma.
--- NOTE | 2024-02-25 08:49 | W.PN.VS ---
Today's Communication / Plan
-
See plan below for today 02/25/2024.
Assessment/Plan
-
Postoperative day 1 status post removal of intra-arterial port placement with primary repair of subclavian artery.
� Doing well.
� Arterial line out.
� Regular diet.
� Likely discharge today.
-
Total Time Spent with Patient (in minutes): 10
Subjective Data
-
Date of Service: February 25, 2024
Seen and evaluated. Patient without any complaints. Sitting in the chair eating.
Objective Data
-
Vital Signs
Temp Pulse Resp BP Pulse Ox
98.4 F 70 21 106/77 98
02/25/24 07:22 02/25/24 08:30 02/25/24 08:30 02/25/24 08:00 02/25/24 08:30
Intake and Output
02/24/24 02/25/24 02/26/24
06:59 06:59 06:59
Intake Total 1480 / 1560 520 / 520
Output Total 375 / 375
Balance 1105 / 1185 520 / 520
Intake:
Oral fluids 480 / 480 360 / 360
IV fluids (Total) 950 / 1030 160 / 160
NSS 150 / 150
Nss 1,000 ml @ 80 mls/hr IV . 800 / 880 160 / 160
[id number] [facility] Rx#:[id number]
IV piggybacks 50 / 50
Output:
Liquid stool amount 150 / 150
Ileostomy 150 / 150
Urine, Voided 225 / 225
Other:
Number of approximated MODERATE 1
amounts of urine
Lab Results
02/25/24 04:25
02/25/24 04:25
Calcium 8.6 mg/dl (8.4-10.2) 02/25/24 04:25
Physical Exam
-
Afebrile.
Awake and alert.
Right neck incision clean dry and intact. No hematoma. Port hub removal incision clean dry and intact. No hematoma. Neurologically no focal deficits. Right upper extremity with 2+ palpable radial pulse. Hand pink and warm. Neurologically
intact.
Chest x-ray from yesterday reviewed. Labs this morning reviewed.
--- NOTE | 2024-02-25 11:02 | PTCARENOTE ---
discharged via wc to home, family here to collect. belongings from room.
[2024-02-25 19:34] LABS: Hepatitis C Antibody Negative (Negative)
== END 2024-02-25 10:52 | disposition home or self-care (01) | DRG 907 ==
LOC: ICU 17:34
PROVIDERS: Radiology Vascular & Interventional Radiology; ADMITTING PHYSICIAN Surgery Vascular Surgery; CONSULT PHYSICIAN Internal Medicine Critical Care Medicine; FAMILY PHYSICIAN Internal Medicine; OTHER PHYSICIAN Nurse Practitioner
PROC: 02HV33Z Insertion of Infusion Device into Superior Vena Cava, Percutaneous Approach (ICD-10-PCS; 2024-02-24)
PROC: 03P Upper Arteries, Removal (ICD-10-PCS; 2024-02-24)
PROC: 0JPT0WZ Removal of Totally Implantable Vascular Access Device from Trunk Subcutaneous Tissue and Fascia, Open Approach (ICD-10-PCS; 2024-02-24)
PROC: 03L Upper Arteries, Occlusion (ICD-10-PCS; 2024-02-24)
PROC: 03Q30ZZ Repair Right Subclavian Artery, Open Approach (ICD-10-PCS; 2024-02-24)
PROC: 0JH60WZ Insertion of Totally Implantable Vascular Access Device into Chest Subcutaneous Tissue and Fascia, Open Approach (ICD-10-PCS; 2024-02-24)
DX: I97.618 Postprocedural hemorrhage of a circulatory system organ or structure following other circulatory system procedure (principal); S25.1 Injury of innominate or subclavian artery; C78.6 Secondary malignant neoplasm of retroperitoneum and peritoneum; C78.7 Secondary malignant neoplasm of liver and intrahepatic bile duct; K50.90 Crohn's disease, unspecified, without complications; S25.89 Other specified injury of other blood vessels of thorax; C50.212 Malignant neoplasm of upper-inner quadrant of left female breast; Y84.8 Other medical procedures as the cause of abnormal reaction of the patient, or of later complication, without mention of misadventure at the time of the procedure; Z17.1 Estrogen receptor negative status [ER-]; N83.202 Unspecified ovarian cyst, left side; M81.0 Age-related osteoporosis without current pathological fracture; E53.8 Deficiency of other specified B group vitamins; E61.1 Iron deficiency; Z79.899 Other long term (current) drug therapy; Z90.49 Acquired absence of other specified parts of digestive tract; Z92.3 Personal history of irradiation; Z88.0 Allergy status to penicillin; Z88.8 Allergy status to other drugs, medicaments and biological substances; Z80.3 Family history of malignant neoplasm of breast
CPT/HCPCS: 88300; 36561; 36590; 37618; 71045; 71275; 76937; 77001; 80048; 85027; 85610; 85730; 86803; 86850; 86900; 86901; 93005; 99152; 99153; C1788; Q9967

== ENCOUNTER → 2024-02-29 09:26 | Outpatient (REF) | payer MEDICARE, OTHER, SELFPAY ==
[2024-02-29 10:15] LABS: % Basophils 1.1 % (0-2); % Eosinophils 9.6 % (0-6); % Immature Granulocytes 0.2 % (0-0.5); % Lymphocytes 26.1 % (20.5-51.1); % Monocytes 12.1 % (1.7-9.3); % Neutrophils 50.9 % (42.2-75.2); Absolute Basophils 0.1 10^3/uL (0-0.2); Absolute Eosinophils 0.5 10^3/uL (0-0.7); Absolute Lymphocytes 1.4 10^3/uL (1.2-3.4); Absolute Monocytes 0.6 10^3/uL (0.1-0.6); Absolute Neutrophils 2.7 10^3/uL (1.4-6.5); Hemoglobin 11.7 g/dL (12.0-16.0); Mean Corp Hgb Conc. 34.4 g/dL (33.0-37.0); Mean Corpuscular Hgb 32.2 pg (27.0-31.0); Mean Corpuscular Volume 93.7 fL (81.0-99.0); Mean Platelet Volume 8.8 fL (7.4-10.4); Nucleated Red Blood Cells % 0 %; Platelet Count 232 10^3/uL (130-400); Red Blood Cell Count 3.63 10^6/uL (4.20-5.40); Red Cell Dist. Width 12.9 % (11.5-14.5); White Blood Cell Count 5.3 10^3/uL (4.8-10.8)
[2024-02-29 11:03] LABS: ALT (SGPT) 33 U/L (0-35); AST (SGOT) 40 U/L (14-36); Albumin 4.1 g/dl (3.5-5.0); Alkaline Phosphatase 48 U/L (38-126); Blood Urea Nitrogen 17 mg/dl (7-17); Calcium 9.7 mg/dl (8.4-10.2); Carbon Dioxide 28 mmol/L (22-30); Chloride 101 mmol/L (98-107); Glucose 87 mg/dl (70-99); Potassium 4.3 mmol/L (3.5-5.1); Sodium 136 mmol/L (135-145); Total Bilirubin 0.5 mg/dl (0.2-1.3); Total Protein 6.5 g/dl (6.3-8.2); eGFR > 60.00
== END ==
LOC: REG 09:26
PROVIDERS: ATTENDING PHYSICIAN Internal Medicine Hematology & Oncology; FAMILY PHYSICIAN Internal Medicine
DX: C50.212 Malignant neoplasm of upper-inner quadrant of left female breast (principal); N83.292 Other ovarian cyst, left side; L03.112 Cellulitis of left axilla; L76.34 Postprocedural seroma of skin and subcutaneous tissue following other procedure; G90.09 Other idiopathic peripheral autonomic neuropathy; C78.6 Secondary malignant neoplasm of retroperitoneum and peritoneum; C78.7 Secondary malignant neoplasm of liver and intrahepatic bile duct
CPT/HCPCS: 36415; 80053; 85025

== ENCOUNTER → 2024-03-01 09:44 | Outpatient (REF) | payer MEDICARE, OTHER, SELFPAY ==
--- NOTE | 2024-02-24 16:32 | W.PN.UPDATE ---
Update Note
Progress Note Update
78-year-old female with history of breast cancer, now liver metastases noted. Was scheduled for port placement for chemotherapy. Underwent procedure. I received a call while I was scrubbed in a different procedure by Dr. Hill expressing
concern regarding inadvertent intra-arterial catheter placement. Recommended CT angiogram to confirm positioning and determine where in the subclavian artery the catheter insertion point was located so that we could decide if endovascular solution
was feasible. I reviewed CT scan while in the OR and discussed with Dr. Hill my recommendations. Discussed that ideally we could place a covered stent across the site as the catheter was removed. However the catheter insertion point is
directly opposite the vertebral artery (vertebral artery origin motor posterior, catheter anterior). Therefore, stent graft would result in coverage of the vertebral artery. While the left vertebral artery appears patent I do not have imaging to
see it all the way up to the level of the basilar artery. Therefore, given risk of stroke with covered stent placement would favor avoiding this and would favor direct surgical cutdown and exposure and remove the catheter. Discussed with patient
the procedure. Discussed risks including but not limited to bleeding, infections, cranial nerve or other nerve injury (brachial plexus as well), thoracic duct leak or lymphatic leak, need for urgent sternotomy. She understands all this and wishes
to proceed.
Discussed with patient's as well as per her reqeust - he understands all and wishes to proceed.
--- NOTE | 2024-02-24 16:43 | W.SUR.PREOP ---
Pre-Operative Surgical Note
-
I have examined this patient prior to the performance of the scheduled procedure.
The patient's condition is unchanged from the time of the current History and
Physical and the patient is able to undergo the scheduled procedure.
[2024-03-01 10:09] VITALS: BP 131/76; BP_SYST 86
[2024-03-01] MEDS: VANCOCIN 200 IV (10:35)
[2024-03-01 12:35] VITALS: BP 120/74; BP_SYST 83
== END ==
LOC: RADI 09:44
PROVIDERS: ATTENDING PHYSICIAN Internal Medicine Hematology & Oncology; FAMILY PHYSICIAN Internal Medicine
DX: C50.212 Malignant neoplasm of upper-inner quadrant of left female breast (principal); C78.6 Secondary malignant neoplasm of retroperitoneum and peritoneum; C78.7 Secondary malignant neoplasm of liver and intrahepatic bile duct
CPT/HCPCS: 36561; 36590; 37618; 76937; 77001; 99152; 99153; C1788

== ENCOUNTER → 2024-03-08 08:26 | Outpatient (REF) | payer MEDICARE, OTHER, SELFPAY ==
[2024-03-08 09:31] LABS: ALT (SGPT) 32 U/L (0-35); AST (SGOT) 43 U/L (14-36); Alkaline Phosphatase 55 U/L (38-126); Blood Urea Nitrogen 13 mg/dl (7-17); Calcium 9.5 mg/dl (8.4-10.2); Carbon Dioxide 27 mmol/L (22-30); Chloride 95 mmol/L (98-107); Glucose 82 mg/dl (70-99); Potassium 4.1 mmol/L (3.5-5.1); Sodium 129 mmol/L (135-145); Total Bilirubin 0.5 mg/dl (0.2-1.3); Total Protein 6.4 g/dl (6.3-8.2); eGFR > 60.00
[2024-03-08 09:35] LABS: % Basophils 0.8 % (0-2); % Eosinophils 5.7 % (0-6); % Lymphocytes 24.2 % (20.5-51.1); % Monocytes 3.7 % (1.7-9.3); % Neutrophils 65.6 % (42.2-75.2); Absolute Eosinophils 0.1 10^3/uL (0-0.7); Absolute Lymphocytes 0.6 10^3/uL (1.2-3.4); Absolute Monocytes 0.1 10^3/uL (0.1-0.6); Absolute Neutrophils 1.6 10^3/uL (1.4-6.5); Hematocrit 32.1 % (37.0-47.0); Hemoglobin 11.4 g/dL (12.0-16.0); Mean Corp Hgb Conc. 35.5 g/dL (33.0-37.0); Mean Corpuscular Hgb 32.5 pg (27.0-31.0); Mean Corpuscular Volume 91.5 fL (81.0-99.0); Mean Platelet Volume 8.8 fL (7.4-10.4); Nucleated Red Blood Cells % 0 %; Platelet Count 182 10^3/uL (130-400); Red Blood Cell Count 3.51 10^6/uL (4.20-5.40); Red Cell Dist. Width 12.6 % (11.5-14.5); White Blood Cell Count 2.4 10^3/uL (4.8-10.8)
== END ==
LOC: REG 08:26
PROVIDERS: ATTENDING PHYSICIAN Internal Medicine Hematology & Oncology; FAMILY PHYSICIAN Internal Medicine
DX: C50.212 Malignant neoplasm of upper-inner quadrant of left female breast (principal); N83.292 Other ovarian cyst, left side; L03.122 Acute lymphangitis of left axilla; L76.34 Postprocedural seroma of skin and subcutaneous tissue following other procedure; G90.09 Other idiopathic peripheral autonomic neuropathy; C78.6 Secondary malignant neoplasm of retroperitoneum and peritoneum; C78.7 Secondary malignant neoplasm of liver and intrahepatic bile duct
CPT/HCPCS: 36415; 80053; 85025

== ENCOUNTER → 2024-03-22 10:14 | Outpatient (REF) | payer MEDICARE, OTHER, SELFPAY ==
[2024-03-22 11:44] LABS: Hematocrit 26.6 % (37.0-47.0); Hemoglobin 9.1 g/dL (12.0-16.0); Mean Corp Hgb Conc. 34.2 g/dL (33.0-37.0); Mean Corpuscular Hgb 32.2 pg (27.0-31.0); Mean Platelet Volume 9.6 fL (7.4-10.4); Platelet Count 204 10^3/uL (130-400); Red Blood Cell Count 2.83 10^6/uL (4.20-5.40); Red Cell Dist. Width 13.9 % (11.5-14.5); White Blood Cell Count 33.4 10^3/uL (4.8-10.8)
[2024-03-22 12:09] LABS: ALT (SGPT) 175 U/L (0-35); AST (SGOT) 284 U/L (14-36); Albumin 3.8 g/dl (3.5-5.0); Alkaline Phosphatase 328 U/L (38-126); Blood Urea Nitrogen 11 mg/dl (7-17); Calcium 9.6 mg/dl (8.4-10.2); Carbon Dioxide 30 mmol/L (22-30); Chloride 98 mmol/L (98-107); Glucose 85 mg/dl (70-99); Potassium 4.1 mmol/L (3.5-5.1); Sodium 134 mmol/L (135-145); Total Bilirubin 0.9 mg/dl (0.2-1.3); Total Protein 6.1 g/dl (6.3-8.2); eGFR > 60.00
[2024-03-22 12:25] LABS: Band Neutrophils 10 % (0-3); Lymphocytes 12 % (20-51); Monocytes 7 % (2-9); Myelocytes 3 % (-); Normal RBC Morphology Yes; Platelets Checked Yes; Segmented Neutrophils 68 % (42-75); Total Cells Counted 100
== END ==
LOC: REG 10:14
PROVIDERS: ATTENDING PHYSICIAN Internal Medicine Hematology & Oncology; FAMILY PHYSICIAN Internal Medicine
DX: C50.212 Malignant neoplasm of upper-inner quadrant of left female breast (principal); N83.292 Other ovarian cyst, left side; L03.112 Cellulitis of left axilla; L76.34 Postprocedural seroma of skin and subcutaneous tissue following other procedure; G90.09 Other idiopathic peripheral autonomic neuropathy; C78.6 Secondary malignant neoplasm of retroperitoneum and peritoneum; C78.7 Secondary malignant neoplasm of liver and intrahepatic bile duct
CPT/HCPCS: 36415; 80053; 85025

== ENCOUNTER → 2024-03-26 10:05 | Outpatient (REF) | payer MEDICARE, OTHER, SELFPAY | LOC: REG 10:05 | PROVIDERS: ATTENDING PHYSICIAN Internal Medicine Hematology & Oncology; FAMILY PHYSICIAN Internal Medicine | DX: C50.212 Malignant neoplasm of upper-inner quadrant of left female breast (principal); N83.292 Other ovarian cyst, left side; L03.112 Cellulitis of left axilla; L76.34 Postprocedural seroma of skin and subcutaneous tissue following other procedure; G90.09 Other idiopathic peripheral autonomic neuropathy; C78.6 Secondary malignant neoplasm of retroperitoneum and peritoneum; C78.7 Secondary malignant neoplasm of liver and intrahepatic bile duct | CPT/HCPCS: 71046 ==

== ENCOUNTER 2024-03-28 18:56 | Inpatient (IN) | payer MEDICARE, OTHER, SELFPAY ==
[2024-03-28 13:29] VITALS: BP 127/73
[2024-03-28 15:11] VITALS: BP 116/68
--- NOTE | 2024-03-28 15:24 | ED.GENMED ---
History of Present Illness
General
Chief Complaint: Fever
Source: patient and spouse
Exam Limitations: none
Time Seen by Provider: 03/28/24 15:08
Nursing documentation reviewed up to this point in time: agreed with
History of Present Illness
History of Present Illness:
Patient to ED with report of fever. Hx of metastatic breast CA. Breast cancer diagnosd 2 years ago. This spring she noticed jaundice. Scheduled for whipple procedure but metastatic disease found. Placed on palliative chemo. SHe had her first 2
rounds at the begining of February. Since then she has had intermittent fevers and has had to cancel chemo for the past 3 weeks. States she had outpatient CXR 2 days ago, nopneumonia. This AM temp was 102 and she was advised by oncology to come to
ED. Denies chills. +cough, no SOB. +nausea, no vomiting. PMH crohn's disease, has ileostomy, no changes in output. Reports decreased appetitel and difficulty sleeping but these are ongoing issues for her.
Past History
Past History
ED Past Medical History: Cancer (Metastatic breast CA) and Other (Crohns dx)
ED Past Surgical History: Bowel resection (ileostomy)
Review of Systems
Review of Systems
Allergies reviewed?: Yes
All Other Systems: ROS reviewed and negative except as documented in HPI and ROS
Constitutional: Reports fever, weight loss, fatigue and sleep disturbance
EENT: Reports no symptoms
Respiratory: Reports cough
Cardiac: Reports no symptoms
ABD/GI: Reports nausea and anorexia
: Reports no symptoms
Musculoskeletal: Reports no symptoms
Skin: Reports no symptoms
Neurological: Reports weakness
Psychiatric: Reports no symptoms
Phy Exam
General Physical Exam
General Presentation: mild distress
General age: appears stated age
General Skin: warm and dry
General Habitus: normal
General Mental: alert
Cardiovascular Exam
Cardiovascular Exam: regular rate/rhythm and no edema
Pulmonary Exam
Pulmonary Exam: lungs clear and no respiratory distress
Gastrointestinal Exam
Gastrointestinal Exam: normal bowel sounds, soft, no organomegaly, non distended and no cva tenderness
Palpation: generalized: Mild tenderness
Musculoskeletal Exam
Musculoskeletal Exam: full ROM and neuro vasc intact
Skin Exam
Skin Exam: warm/dry, no rash, no petechia and jaundice
Psychiatric Exam
Psychiatric Exam: normal mood/affect
Course
Orders/Labs/Results
Orders:
Orders
03/28/24 Dinner
NPO
Allow oral meds: Yes
Allow clear liquids: Sips of Clears
03/28/24 15:30
0.9% Sodium Chloride 500 ml [Nss] 500 ml IV BOLUS
Ondansetron Injectable [Zofran] 4 mg IV NOW STA
03/28/24 15:46
COVID-19 Antigen Urgent
Source: Nasal Swab
Complete Blood Count/With Diff Urgent
Comprehensive Metabolic Panel Urgent
Lactic Acid Urgent
03/28/24 16:02
Blood Culture Urgent
ALESSANDRO Source: Blood/Venous
Specimen Description:
03/28/24 16:04
Urinalysis Reflex To Culture Urgent
Date Specimen was Collected: 03/28/24
Time Specimen was Collected: 15:15
Urine Microscopic Reflex Cult Urgent
03/28/24 16:54
US Abdomen Complete/Upper Urgent
Comment:
Reason For Exam: elevated LFT's
03/28/24 18:31
Admit/Transfer Patient As Directed
Co-Sign Provider:
Level of Care: Inpatient admission
Assign to:: Medical/Surgical
Physician / Group: cassy
Diagnosis: sepsis biliary stent obstruction
Reason for Hospitalization: sepsis biliary stent obstruction
Expected length of stay greater than two midnights?: Yes
ELOS- Estimated Length of Stay in days: 2
I certify the patient meets the requirements for IP care: Yes
Code Status As Directed
Resuscitation Status: Do not resuscitate
Reached after discussion with pt or family/Healthcare POA: Yes
DNR Bracelet Application ONCE
PRN Pain Medication Management As Directed
May give lesser potent ordered pain med per pt: Yes
preference::
Protocol:: Medication orders for pain may be administered in a
manner that supports deferring to patient preference
when the pt is:
- Requesting an ordered lesser potent pain medication.
Least to most potent pain medications are defined
as: acetaminophen < NSAID < tramadol < opioids
(morphine, oxycodone, hydromorphone).
- Requesting a lesser dose of the same medication IF
ORDERED.
- Requesting a less intrusive route of administration
if both routes are prescribed by the provider (PO <
IV).
03/28/24 19:28
0.9% Sodium Chloride 1000 ml [Nss] 1,000 ml IV 100 mls/hr
Ibuprofen [Motrin] 200 mg PO Q6HPRN PRN
Ondansetron Injectable [Zofran] 4 mg IV Q6HPRN PRN
03/28/24 19:28
GASTROINTESTINAL CONSULT Routine
Consulting Provider: Shaila Obrien
Was physician already notified: Yes
Activity As Directed
Activity Level: As Tolerated
Vital Signs As Directed
Frequency: Per unit guidelines
DX Deep Vein Thrombosis Video Routine
03/28/24 20:00
Cefepime HCl [Maxipime] 2,000 mg IV Q12H
Heparin 5,000 units SC Q12
MetroNIDAZOLE 500 MG/100 ML [Flagyl 500 mg] 100 ml IV Q8H
03/29/24 06:00
Complete Blood Count/With Diff IN AM
Comprehensive Metabolic Panel IN AM
03/29/24 08:00
Calcium Carbonate/Vitamin D3 [Oscal 500 + D] 500 mg PO DAILY
FOLic ACID [Folvite] 0.8 mg PO DAILY
Ferrous Sulfate [Feosol] 325 mg PO DAILY
Multivitamin [Theragran] 1 tablet PO DAILY
03/30/24 07:00
Alendronate Sodium [Fosamax] 70 mg PO WE@0700
04/07/24 08:00
Cyanocobalamin 1,000 mcg IM Q30D
Abnormal Lab Results
03/28/24 03/28/24
15:46 16:04
WBC 32.7 H 10^3/uL
(4.8-10.8)
RBC 2.83 L 10^6/uL
(4.20-5.40)
Hgb 9.2 L g/dL
(12.0-16.0)
Hct 24.9 L %
(37.0-47.0)
MCH 32.5 H pg
(27.0-31.0)
RDW 15.9 H %
(11.5-14.5)
Plt Count 442 H D 10^3/uL
(130-400)
Abs Immat Gran (auto) 1.4 H 10^3/uL
(0-0.05)
Absolute Neuts (auto) 27.2 H 10^3/uL
(1.4-6.5)
Absolute Monos (auto) 2.7 H 10^3/uL
(0.1-0.6)
Immature Gran % 4.4 H %
(0-0.5)
Neutrophils % 83.4 H %
(42.2-75.2)
Lymphocytes % 3.5 L %
(20.5-51.1)
Sodium 125 L mmol/L
(135-145)
Chloride 95 L mmol/L
(98-107)
Creatinine 0.5 L mg/dL
(0.6-1.0)
Glucose 110 H mg/dl
(70-99)
Lactic Acid 0.6 L mmol/L
(0.7-2.0)
Total Bilirubin 7.4 H mg/dl
(0.2-1.3)
AST 120 H U/L
(14-36)
ALT 116 H U/L
(0-35)
Alkaline Phosphatase 549 H U/L
(38-126)
Total Protein 5.7 L g/dl
(6.3-8.2)
Albumin 3.3 L g/dl
(3.5-5.0)
Urine Ketones 1+ A
(Negative)
Ur Occult Blood Reflex 1+ A
(Negative)
Urine Bilirubin 2+ A
(Negative)
Urine Urobilinogen 2+ A
(Neg - 1+)
Leukocyte Esterase Rfl Trace A
(Negative)
Urine RBC 3-6 A /HPF
(0-2)
03/28/24 15:46
03/28/24 15:46
Vital Signs
Initial and Last Documented VS:
Initial Vital Signs
Temp Pulse Resp BP Pulse Ox
101.4 F H 114 16 127/73 98
03/28/24 13:29 03/28/24 13:29 03/28/24 13:29 03/28/24 13:29 03/28/24 13:29
Last Documented Vital Signs
Temp Pulse Resp BP Pulse Ox
99 F 87 16 108/63 98
03/28/24 23:05 03/28/24 23:05 03/28/24 23:05 03/28/24 23:05 03/28/24 23:05
*Radiology
Radiology exam reviewed: radiology read reviewed
*Pulse Oximetry
Patient hypoxic: no
*Critical Care Note
Total Time (30-74mins, 75-104mins- exclusive of procedures): Not Applicable
ED Attending Note
-
Portions of this chart may have been created with voice recognition software.� Occasional wrong word or��sound alike� substitutions may have occurred due to the inherent limitations of voice recognition software.
Discharge Plan
Departure
Patient Disposition: Admit
Date of Disposition: 03/28/24
Time of Disposition: 18:03
Presentation/result/management discussed w/ accepting MD/DO: Hospitalist
Condition: Fair
Discharge Problem:
Acute hyponatremia, Elevated LFTs, Fever, unknown origin
Interventions
Interventions:
*Risk Screen - Suicide Last Done: 03/28/24 20:59
*Nursing Disposition Last Done: 03/28/24 19:00
ED- Neurological Assessment Last Done: 03/28/24 14:29
ED-Skin Assessment Last Done: 03/28/24 14:29
Discharge Date and Time
Discharge Date/Time: 03/28/24 19:58
[2024-03-28] MEDS: NSS 500 IV (16:15)
[2024-03-28 16:26] LABS: Hematocrit 24.9 % (37.0-47.0); Hemoglobin 9.2 g/dL (12.0-16.0); Mean Corp Hgb Conc. 36.9 g/dL (33.0-37.0); Mean Corpuscular Hgb 32.5 pg (27.0-31.0); Mean Platelet Volume 9.3 fL (7.4-10.4); Platelet Count 442 10^3/uL (130-400); Red Blood Cell Count 2.83 10^6/uL (4.20-5.40); Red Cell Dist. Width 15.9 % (11.5-14.5); White Blood Cell Count 32.7 10^3/uL (4.8-10.8)
[2024-03-28 16:31] LABS: COVID-19 Antigen Negative (Negative); Lactic Acid 0.6 mmol/L (0.7-2.0)
[2024-03-28 16:41] LABS: ALT (SGPT) 116 U/L (0-35); AST (SGOT) 120 U/L (14-36); Albumin 3.3 g/dl (3.5-5.0); Alkaline Phosphatase 549 U/L (38-126); Blood Urea Nitrogen 10 mg/dl (7-17); Calcium 8.9 mg/dl (8.4-10.2); Carbon Dioxide 23 mmol/L (22-30); Chloride 95 mmol/L (98-107); Glucose 110 mg/dl (70-99); Potassium 3.9 mmol/L (3.5-5.1); Sodium 125 mmol/L (135-145); Total Bilirubin 7.4 mg/dl (0.2-1.3); Total Protein 5.7 g/dl (6.3-8.2); eGFR > 60.00
[2024-03-28 17:05] LABS: % Basophils 0.5 % (0-2); % Eosinophils 0.1 % (0-6); % Immature Granulocytes 4.4 % (0-0.5); % Lymphocytes 3.5 % (20.5-51.1); % Monocytes 8.1 % (1.7-9.3); % Neutrophils 83.4 % (42.2-75.2); Absolute Basophils 0.2 10^3/uL (0-0.2); Absolute Immature Granulocytes 1.4 10^3/uL (0-0.05); Absolute Lymphocytes 1.2 10^3/uL (1.2-3.4); Absolute Monocytes 2.7 10^3/uL (0.1-0.6); Absolute Neutrophils 27.2 10^3/uL (1.4-6.5); Nucleated Red Blood Cells % 0.2 %
[2024-03-28 17:55] VITALS: BP 110/64
--- NOTE | 2024-03-28 18:17 | PHANOTE ---
med rec jorge(03/28/24)-Due to symptoms, patient has not been able to regularly continue her supplements or her alendronate.
--- NOTE | 2024-03-28 18:35 | HPS.HSE ---
Family Physician
-
Family Physician: David Figueroa
Chief Complaint
-
fever
History of Present Illness
78-year-old female with past medical history of metastatic breast cancer diagnosed in 2019 status postlumpectomy, chemotherapy and radiation, with liver metastases, Crohn's disease status post ileocecectomy with subsequent total colectomy and end
ileostomy, biliary stricture status post sphincterotomy, hyponatremia, B12 deficiency, presenting with intermittent fevers for the past few days.
She just had palliative chemotherapy 3 weeks ago and since that time she has been feeling nauseous with some vague abdominal cramping. Denies any vomiting. Denies any increased output from ostomy. Denies any urinary symptoms. She has some slight
cough and shortness of breath.
Patient was admitted in November for painless jaundice with hyperbilirubinemia/transaminitis. You underwent ERCP which showed biliary stricture status post enterotomy and placement of 2 stents 1 in the common bile duct and 1 in the pancreatic duct.
Patient was most recently admitted 2 weeks ago for repair of right subclavian artery after placement of port into right subclavian artery.
Denies smoking or alcohol use.
Medical History
Past Medical History
Past Medical History: Reports Other (metastatic breast cancer diagnosed in 2019 status postlumpectomy, chemotherapy and radiation, with liver metastases, Crohn's disease status post ileocecectomy with subsequent total colectomy and end ileostomy,
biliary stricture status post sphincterotomy, hyponatremia, B12 deficiency)
Past Surgical History: Reports Other (Bowel resection (ileostomy))
Social History
Tobacco: Non-smoker
Alcohol: None
Drug: None
Family History
Family History: Not pertinent
Allergies / Home Medications
Allergies reflects when Allergies were last updated in [employer].
Home Medications with original date entered in [facility]
Allergy/Medication List:
Allergies
Allergy/AdvReac Type Severity Reaction Status Date / Time
infliximab [From Remicade] Allergy Neuropathy, Verified 03/28/24 13:33
hair loss
mesalamine Allergy Vomiting Verified 03/28/24 13:33
Penicillins Allergy Hives, Verified 03/28/24 13:33
Inability
to move LE
Home Medications
alendronate 70 mg tablet (Fosamax) 70 mg PO WE@0800 BONE 05/15/22
cyanocobalamin (vitamin B-12) 1,000 mcg/mL injection solution 1,000 mcg IM QMONTH Supplement 05/15/22
ferrous sulfate 325 mg (65 mg iron) tablet (Iron (ferrous sulfate)) 325 mg PO DAILY Supplement 05/15/22
calcium carbonate 600 mg-vitamin D3 10 mcg (400 unit) tablet (Calcium with Vitamin D) 1 tab PO DAILY Supplement ##0 12/03/23
folic acid 800 mcg tablet 0.8 mg PO DAILY Supplement 12/03/23
turmeric 400 mg capsule 400 mg PO DAILY Supplement 12/03/23
ibuprofen 200 mg tablet 200 mg PO Q6HPRN PRN mild pain 03/28/24
therapeutic multivitamin 1 tab PO DAILY 03/28/24
Review of Systems
-
History Source: Patient
A 12 point ROS was completed and negative except as noted: Yes
Constitutional: Reports Fever
EENT: Reports No Symptoms
Respiratory: Reports No Symptoms
Cardiac: Reports No Symptoms
Abdomen/GI: Reports See HPI
: Reports No Symptoms
Musculoskeletal: Reports No Symptoms
Skin: Reports No Symptoms
Neurological: Reports No Symptoms
Endocrine: Reports No Symptoms
Hematologic/Lymphatic: Reports No Symptoms
Psych: Reports No Symptoms
Physical Exam
Vital Signs
Vital Signs
Temp Pulse Resp BP Pulse Ox
100.9 F H 94 17 110/64 97
03/28/24 15:11 03/28/24 17:55 03/28/24 15:11 03/28/24 17:55 03/28/24 17:55
Physical Exam
General: Well Developed, Well Nourished and No Apparent Distress
HEENT: NormoCephalic, Moist mucous membranes and Atraumatic
Respiratory: Clear
Cardiac: S1/S2 and Regular Rhythm; No Murmur or Rub
GI: Soft, Non Tender, Non Distended and Normal Bowel Sounds; No Organomegaly
Rectal: Deferred by Provider
Musculoskeletal: No Clubbing, No Cyanosis and No Edema
Skin: No Rash
Neuro: Nonfocal/grossly intact
Laboratory Results
-
03/28/24 15:46
03/28/24 15:46
Laboratory Results
Lactic Acid 0.6 mmol/L (0.7-2.0) L 03/28/24 15:46
Total Bilirubin 7.4 mg/dl (0.2-1.3) H 03/28/24 15:46
AST 120 U/L (14-36) H 03/28/24 15:46
ALT 116 U/L (0-35) H 03/28/24 15:46
Alkaline Phosphatase 549 U/L (38-126) H 03/28/24 15:46
Data Reviewed
-
Lab Data: Labs Reviewed by me
Old Records: Reviewed
Impression/Plan
-
IMPRESSION:
PLAN:
# Sepsis (fever, tachycardia, leukocytosis) likely secondary to biliary stent obstruction versus tumor fever from liver metastases
# History of biliary stricture status post enterotomy/stenting in November
-Labs show elevation in bilirubin from 0.9-7.4 over the past 5 days
-Abdominal ultrasound shows enlarged common bile duct containing stent as well as intrahepatic biliary tract dilatation
-Blood culture sent
-IV fluids
-Cefepime/Flagyl
-GI consulted
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
-Fluid restriction
-IV fluids given in ER
Metastatic breast cancer status postlumpectomy, chemotherapy, radiation
Crohn's disease status post ileocecectomy with subsequent total colectomy and end ileostomy
Chronic normocytic anemia
-Hemoglobin stable
B12 deficiency
-Continue vitamin B12
Osteoporosis
-Continue alendronate
DNR/DNI
DVT prophylaxis�heparin
N.p.o.
[2024-03-28 18:39] VITALS: BP 117/62
[2024-03-28 18:53] LABS: Urine Albumin Negative (Neg - Trace); Urine Bilirubin 2+ (Negative); Urine Character Clear (Clear); Urine Glucose Negative (Negative); Urine Ketone 1+ (Negative); Urine Leukocyte Trace (Negative); Urine Nitrite Negative (Negative); Urine Occult Blood 1+ (Negative); Urine Specific Gravity 1.015 (<1.030); Urine Urobilinogen 2+ (Neg - 1+)
[2024-03-28 18:56] LABS: Urine Color Amber
[2024-03-28 19:09] LABS: Urine White Cell 0-2 /HPF (0-5)
--- NOTE | 2024-03-28 19:45 | PTCARENOTE ---
received patient from ED to room 325. pt ambulated from stretcher to bed without difficulty. AAOX3. pt oriented to room and unit. admission completed.
[2024-03-28 19:47] VITALS: BP 121/71; BMI 18.8
[2024-03-28] MEDS: NSS 1000 IV (20:30)
[2024-03-28] MEDS: FLAGYL 500 MG 100 IV (20:35)
[2024-03-28] MEDS: HEPARIN 5000 UNITS SC (20:35)
[2024-03-28] MEDS: MAXIPIME 2000 MG IV (20:35)
[2024-03-28] MEDS: STERILE WATER FOR INJECTION 10 ML IV (20:38)
[2024-03-28 23:05] VITALS: BP 108/63
[2024-03-29] MEDS: FLAGYL 500 MG 100 IV ×2 (04:55→11:36)
[2024-03-29] MEDS: NSS 1000 IV (04:55)
[2024-03-29 05:09] LABS: ALT (SGPT) 98 U/L (0-35); AST (SGOT) 93 U/L (14-36); Albumin 2.9 g/dl (3.5-5.0); Alkaline Phosphatase 459 U/L (38-126); Blood Urea Nitrogen 8 mg/dl (7-17); Calcium 8.4 mg/dl (8.4-10.2); Carbon Dioxide 25 mmol/L (22-30); Chloride 101 mmol/L (98-107); Estimated Creatinine Clearance 72 ml/min; Glucose 94 mg/dl (70-99); Potassium 3.7 mmol/L (3.5-5.1); Sodium 130 mmol/L (135-145); Total Bilirubin 8.1 mg/dl (0.2-1.3); Total Protein 5.3 g/dl (6.3-8.2); eGFR > 60.00
[2024-03-29 05:22] LABS: % Basophils 0.5 % (0-2); % Eosinophils 0.4 % (0-6); % Immature Granulocytes 3.2 % (0-0.5); % Lymphocytes 4.7 % (20.5-51.1); % Neutrophils 81.2 % (42.2-75.2); Absolute Basophils 0.1 10^3/uL (0-0.2); Absolute Eosinophils 0.1 10^3/uL (0-0.7); Absolute Immature Granulocytes 0.8 10^3/uL (0-0.05); Absolute Lymphocytes 1.1 10^3/uL (1.2-3.4); Absolute Monocytes 2.3 10^3/uL (0.1-0.6); Absolute Neutrophils 19.1 10^3/uL (1.4-6.5); Hematocrit 23.1 % (37.0-47.0); Hemoglobin 8.5 g/dL (12.0-16.0); Mean Corp Hgb Conc. 36.8 g/dL (33.0-37.0); Mean Corpuscular Hgb 32.4 pg (27.0-31.0); Mean Corpuscular Volume 88.2 fL (81.0-99.0); Mean Platelet Volume 9.2 fL (7.4-10.4); Nucleated Red Blood Cells % 0 %; Platelet Count 419 10^3/uL (130-400); Red Blood Cell Count 2.62 10^6/uL (4.20-5.40); Red Cell Dist. Width 16.2 % (11.5-14.5); White Blood Cell Count 23.5 10^3/uL (4.8-10.8)
[2024-03-29 05:57] LABS: Hepatitis C Antibody Negative (Negative)
[2024-03-29 07:00] VITALS: BP 109/61
--- NOTE | 2024-03-29 07:32 | W.PN.HOSP.TC ---
Addendum entered and electronically signed by Richard Liu MD 03/29/24 12:29:
Total time spent on d/c = 31 min. This included today's physical exam, progress note, review of laboratory and diagnostic data, preparation of discharge documents and prescriptions, and discussions about the pt's hospital course and discharge plan
with the patient and other medical care evaluation specialist involved in the patient's care.
Original Note:
Today's Communication/Plan
-
see bold, possible transfer to [facility]
Assessment / Plan
Assessment / Plan
Gen: NAD, AAOx3, appears chronically ill.
Eyes: EOMI, PERRLA, moderate scleral icterus.
Neck: supple.
CV: RRR, +S1/S2, no m/r/g.
Resp: CTAB, no rales, wheezes, or rhonchi.
Abd: +BS, soft, NT, ND
Skin: No rashes. +jaundice
Neuro: CN 2-12 intact, non-focal.
Psych: Normal mood and affect.
Sepsis likely secondary to biliary stent obstruction versus tumor fever from liver metastases
-h/o biliary stricture status post enterotomy/stenting in November
-on admission, labs showed elevation in bilirubin from 0.9-7.4 over the prior 5 days
-Abdominal ultrasound shows enlarged common bile duct containing stent as well as intrahepatic biliary tract dilatation
-follow BCx
-cont IVFs
-cont Cefepime/Flagyl
-c/s GI/ID
-case discussed with GI, possible transfer to [place]
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
-with sepsis Na has improved with isontonic IVFs
-FR
Other problems:
Metastatic breast cancer status postlumpectomy, chemotherapy, radiation
Crohn's disease status post ileocecectomy with subsequent total colectomy and end ileostomy
Chronic normocytic anemia: Hb stable
B12 deficiency: Continue vitamin B12
Osteoporosis Continue alendronate
DNR/DNI
DVT prophylaxis�heparin
Total time spent on today's encounter was 50 minutes which included time spent in counseling the patient/family regarding diagnosis and treatment plan as listed above, goals of care, and symptom management. Case was discussed with nursing staff,
specialists, and care coordinators/case management. All labs and imaging personally reviewed by me. Remainder the time spent in detailed review of previous records, lab data, imaging, and other medical provider documentation.
Anticipated Discharge: > 48 hours
Subjective/Interval History
-
Date of Service: March 29, 2024
Denies CP/SOB.
Objective Data
-
Labs:
Laboratory Results
03/29/24
04:45
WBC 23.5 H
Hgb 8.5 L
Hct 23.1 L
Plt Count 419 H
Sodium 130 L
Potassium 3.7
Chloride 101
Carbon Dioxide 25
BUN 8
Creatinine 0.5 L
Glucose 94
Calcium 8.4
Total Bilirubin 8.1 H
AST 93 H
ALT 98 H
Alkaline Phosphatase 459 H
Vital Signs:
Vital Signs
Temp Pulse Resp BP Pulse Ox
99 F 87 16 108/63 98
03/28/24 23:05 03/28/24 23:05 03/28/24 23:05 03/28/24 23:05 03/28/24 23:05
I&O
03/28/24 03/29/24 03/30/24
06:59 06:59 06:59
Intake Total 1400 / 1400
Balance 1400 / 1400
[2024-03-29] MEDS: OSCAL 500 + D 500 MG PO (08:31)
[2024-03-29] MEDS: MAXIPIME 2000 MG IV (08:31)
[2024-03-29] MEDS: FOLVITE 0.8 MG PO (08:31)
[2024-03-29] MEDS: STERILE WATER FOR INJECTION 10 ML IV (08:31)
[2024-03-29] MEDS: THERAGRAN 1 TABLET PO (08:31)
[2024-03-29] MEDS: FEOSOL 325 MG PO (08:31)
[2024-03-29] MEDS: HEPARIN 5000 UNITS SC (08:31)
--- NOTE | 2024-03-29 09:30 | CON.GI ---
Addendum entered and electronically signed by Shaila Obrien MD 03/29/24 12:44:
I saw and examined the patient.
The DIRECTOR GLOBAL SALES or PA's note was reviewed and I agree with the note.
Comment: 78-year-old female with history of left-sided breast cancer status postlumpectomy, chemo and radiation, history of Crohn's status post ileocolectomy with end ileostomy who was admitted to the hospital in November 2019 for for painless
jaundice, had EUS/ERCP and there was a concern for malignant biliary stricture, subsequent workup at [facility] showed peritoneal carcinomatosis rather than primary biliary adenocarcinoma. Patient had plastic stents placed in the pancreatic and bile
ducts and managed by oncology with no as outpatient. She is now presenting with intermittent fevers, in the ER she was noted to have leukocytosis with white count of 32.7, temperature of 101.4, elevated LFTs, total bili of 8.1, AST of 93, ALT of 98
and alkaline phosphatase of 459. No abdominal pain, some jaundice and pale stool. Abdominal ultrasound showing common duct or intrahepatic bile duct dilation.
-Elevated LFTs, fevers blood culture still pending-
Rule out cholangitis with dilated biliary system.
Patient currently on antibiotics, ceftriaxone and Flagyl.
Discussed with Dr. Johnson at [facility], plan is to transfer patient to [facility] for ERCP and stent placement.
Patient is agreeable, discussed with primary hospitalist team.
Okay for clear liquid diet.
For transfer to [facility].
Addendum entered and electronically signed by SMITHA Minaya 03/29/24 10:51:
03/28/24 US abdomen
IMPRESSION: Prior cholecystectomy.
Enlarged common bile duct containing stent as well as intrahepatic biliary tract dilatation, evaluation limited with this imaging modality, biliary tract dilatation also seen on prior MRI December 04, 2023.. Suggest elective MRI for more complete
evaluation.
Left renal collecting system dilatation as was seen on prior MRI.
US reviewed
Original Note:
Consultation
-
Date/Time Consultation Requested: 03/28/241929
Date/Time Consultation Performed: 03/29/24929
Requesting Provider: Eric Allan MD
Performing Provider: SMITHA Banks, Shaila Obrien MD
Reason for Consultation: increased LFT's, fever
Medical History
Chief Complaint / HPI
Chief Complaint: fever, jaundice decreased appetite
History of Present Illness:
The patient is a pleasant 78-year-old female with a past medical history significant for Crohn's disease s/p initial ileocecectomy with subsequent total colectomy and end ileostomy previously on 6-MP therapy (which she is off of), left sided breast
cancer dx March 2022 post lumpectomy (May 2022), chemotherapy (completed October 2022), and radiation, Vitamin B12 deficiency, iron deficiency, who presented to the hospital with complaints of painless jaundice and abnormal outpatient labs in November.
She completed EUS/ERCP with concern for malignant stricture with pancreatic and biliary stenting. Path was noted adeno CA with moderately elevated Ca19-9. She was referred to Dr. Hou for mini Whipple but noted with omental studding and malignant
signet cell carcinoma. Tanja was completed and procedure was aborted. She recently started chemo several weeks ago with Dr. Duarte with plan for carbo and gemcitabine with possible add of Keytruda. She now presents with fever, rise in LFT's
with jaundice , nausea, decreased appetite, dark urine and guzmán stools. Asked to evaluate for possible biliary obstruction. On admission WBC 32.7, Na 125, bili 7.4, AST 120, alk 116, alk phos 549.
She currently state fever started about 1 week ago. She denies abdominal pain, change in ostomy output other than sheet fed printer color. No dysphagia or GERD. Her last colonoscopy was a number of years ago as she does not have a colon left after her
surgical resection. She was previously following at [facility] with Dr. Jazmin Mortensen for her Crohn's disease, and has recently establish care with Dr. Clark here at [facility].
Past Medical History
Past Medical History: Cancer (Breast cancer status postlumpectomy, chemotherapy, and radiation initial diagnosis March 2022, biliary stricture with adeno CA s/p attempted mini whipple with concern for carcinomatosis and metastatic breast CA) and
Other (Crohn's disease with ileostomy (?Total colectomy), vitamin B12 deficiency, iron deficiency)
Past Surgical History: Bowel Resection (Crohn's disease s/p initial ileocecectomy with subsequent total colectomy and end ileostomy previously on 6-MP therapy) and Gynecological (Tubal ligation, breast lumpectomy)
Social History
Tobacco: Non-Smoker
Alcohol: Former
Drug: None
Personal:
Living: With Family
Employment: Retired
Family History
Family History: Cancer (Mother, and maternal aunt with breast cancer) and Other (No family history of colon cancer, pancreatic cancer, or other GI cancers or disorders)
Allergies / Home Medications
Allergy/AdvReac Type Severity Reaction Status Date / Time
infliximab [From Remicade] Allergy Neuropathy, Verified 03/28/24 13:33
hair loss
mesalamine Allergy Vomiting Verified 03/28/24 13:33
Penicillins Allergy Hives, Verified 03/28/24 13:33
Inability
to move LE
�Medication �Instructions �Recorded
alendronate 70 mg tablet (Fosamax) 70 mg PO WE@0800 BONE 05/15/22
cyanocobalamin (vitamin B-12) 1,000 mcg IM QMONTH Supplement 05/15/22
1,000 mcg/mL injection solution
ferrous sulfate 325 mg (65 mg 325 mg PO DAILY Supplement 05/15/22
iron) tablet (Iron (ferrous
sulfate))
calcium carbonate 600 mg-vitamin 1 tab PO DAILY Supplement ##0 12/03/23
D3 10 mcg (400 unit) tablet
(Calcium with Vitamin D)
folic acid 800 mcg tablet 0.8 mg PO DAILY Supplement 12/03/23
turmeric 400 mg capsule 400 mg PO DAILY Supplement 12/03/23
ibuprofen 200 mg tablet 200 mg PO Q6HPRN PRN mild pain 03/28/24
therapeutic multivitamin 1 tab PO DAILY 03/28/24
Review of Systems
-
History Source: Patient
Constitutional: Reports Fever, Weight Loss and Fatigue
EENT: Reports No Symptoms
Respiratory: Reports No Symptoms
Cardiac: Reports No Symptoms
Abdomen/GI: Reports Nausea, Vomiting and Other (pale stools )
: Reports Dark Urine
Musculoskeletal: Reports No Symptoms
Skin: Reports No Symptoms
Neurological: Reports Weakness
Endocrine: Reports No Symptoms
Hematologic/Lymphatic: Reports No Symptoms
Vital Signs
Temp Pulse Resp BP Pulse Ox
97.9 F 78 17 109/61 98
03/29/24 07:00 03/29/24 07:00 03/29/24 07:00 03/29/24 07:00 03/29/24 07:00
Physical Exam
Exam
General: Fever and Other (thin appearing )
HEENT: Other (jaundice )
Respiratory: Clear
Cardiac: Regular Rhythm
GI: Soft, Non Tender, Non Distended and Other (intact ostomy )
Genito-urinary: No Costovertebral Tender
Musculoskeletal: No Clubbing and No Cyanosis
Skin: Warm and Dry
Neuro: Awake, Alert and AO x 3
Psych: Calm
Results
WBC 23.5 10^3/uL (4.8-10.8) H 03/29/24 04:45
Hgb 8.5 g/dL (12.0-16.0) L 03/29/24 04:45
Hct 23.1 % (37.0-47.0) L 03/29/24 04:45
MCV 88.2 fL (81.0-99.0) 03/29/24 04:45
Plt Count 419 10^3/uL (130-400) H 03/29/24 04:45
Absolute Neuts (auto) 19.1 10^3/uL (1.4-6.5) H 03/29/24 04:45
Sodium 130 mmol/L (135-145) L 03/29/24 04:45
Potassium 3.7 mmol/L (3.5-5.1) 03/29/24 04:45
Chloride 101 mmol/L (98-107) 03/29/24 04:45
Carbon Dioxide 25 mmol/L (22-30) 03/29/24 04:45
BUN 8 mg/dl (7-17) 03/29/24 04:45
Creatinine 0.5 mg/dL (0.6-1.0) L 03/29/24 04:45
Calcium 8.4 mg/dl (8.4-10.2) 03/29/24 04:45
Total Bilirubin 8.1 mg/dl (0.2-1.3) H 03/29/24 04:45
AST 93 U/L (14-36) H 03/29/24 04:45
ALT 98 U/L (0-35) H 03/29/24 04:45
Alkaline Phosphatase 459 U/L (38-126) H 03/29/24 04:45
Hepatitis C Antibody Negative (Negative) 03/29/24 04:45
Diagnostic Image Results:
Prior GI Procedures:
11/2023 EUS:
- There was no sign of significant pathology in the
pancreatic head, genu of the pancreas, pancreatic body
and pancreatic tail.
- There was dilation in the common bile duct which
measured up to 22 mm.
- There was no sign of significant pathology in the
ampulla.
- There was no evidence of significant pathology in
the left lobe of the liver.
- No specimens collected.
11/2023 ERCP: - The major papilla appeared normal.
- A single severe biliary stricture was found in the
lower third of the main bile duct. The stricture was
malignant appearing.
- The upper third of the main bile duct and middle
third of the main bile duct were severely dilated.
- A pancreatic sphincterotomy was performed.
- One plastic stent was placed into the ventral
pancreatic duct.
- A biliary sphincterotomy was performed.
- Cells for cytology obtained in the lower third of
the main duct.
- Biopsy was performed in the lower third of the main
duct.
- Common bile duct was successfully dilated.
- One plastic stent was placed into the common bile
duct.
colonoscopy: years ago prior to ileostomy placement
Assessment / Plan
-
The patient is a pleasant 78-year-old female with a past medical history significant for Crohn's disease s/p initial ileocecectomy with subsequent total colectomy and end ileostomy previously on 6-MP therapy (which she is off of), left sided breast
cancer dx March 2022 post lumpectomy (May 2022), chemotherapy (completed October 2022), and radiation, Vitamin B12 deficiency, iron deficiency, who presented to the hospital with complaints of painless jaundice and abnormal outpatient labs in November.
She completed EUS/ERCP with concern for malignant stricture with pancreatic and biliary stenting. Path was noted adeno CA with moderately elevated Ca19-9. She was referred to Dr. Hou for mini Whipple but noted with omental studding and malignant
signet cell carcinoma. Tanja was completed and procedure was aborted. She recently started chemo several weeks ago with Dr. Duarte with plan for carbo and gemcitabine with possible add of Keytruda. She now presents with fever, rise in LFT's
with jaundice , nausea, decreased appetite, dark urine and guzmán stools. Asked to evaluate for possible biliary obstruction. On admission WBC 32.7, Na 125, bili 7.4, AST 120, alk 116, alk phos 549.
-metastatic breast CA initial diagnosis 2021 with carcinomatosis and biliary involvement with recent chemo
-sepsis with fever/leukocytosis on admission
-rise in LFT's
-hyponatremia
-History of Crohn's disease with ileocecectomy with total colectomy and end ileostomy, not on medications
-hx chronic anemia
-hx B12 deficiency
PLAN:
Etiology of rise in LFT's with fever with concern for biliary sepsis with obstructive process with prior hx stent, chemo related vs other
reviewed with patient will need to consider transfer to tertiary center for ERCP and stent change as no availability for procedure this week at
cont abx
await blood cx
trend labs-- WBC improved today with still further rise of bilirubin
ok for clear diet pending transfer
Dr. Obrien to call [facility] to review as pt agreeable for transfer
will follow
-
-
Thank you for consultation and allowing me to participate in the patient's care. Please call the telecommunications technician GI physician during the after hours with any questions or concerns.
--- NOTE | 2024-03-29 10:48 | CON.ID ---
Consultation
-
Date/Time Consultation Requested: 03/29/24 7:40
Date/Time Consultation Performed: 03/29/24 10:48
Requesting Provider: Dr Liu
Performing Provider: Dr Rai
Reason for Consultation: sepsis
Chief Complaint / Past History
Chief Complaint
fever
History of Present Illness
Ms Frey is a 78 year old female with past medical history notable for Crohn's disease s/p ileocecectomy then subsequent total colectomy/end ileostomy currently off of rx, metastatic breast cancer dxd 2019 s/p remote chemotherapy, lumpectomy and
radiation, complicated by liver metastases and biliary stricture status post sphincterotomy, stenting of the CBD and pancreatitic duct november 2023 with path showing adenocarcinoma and elevatd Ca19-9. She was referred to Dr. Hou for mini Whipple but
found to have with omental studding and malignant signet cell carcinoma. Tanja was completed and then the procedure was aborted. She started chemo several weeks ago with Dr. Duarte with plan for carbo and gemcitabine with possible add of
Keytruda. She
presented here for several days of painless jaundice, intermittent fevers for about 1 week, mild cough with shortness of breath. Also with nausea, decreased appetite, dark urine and guzmán stools. No abdominal pain, vomiting, decreased output from
the ostomy, or dysuria.
Since arrival here Tmax 101.4, bp stable, wbc initially 32 now 23, hgb 8.5, plt 419, L shift is noted, cr 0.5, na initially 125 now 130, t bili initially 7.4 now 8.1, ast 120 now 93, alt 116 now 98, alk phos 459
Past History
Additional Past Medical History:
Cancer (Breast cancer status postlumpectomy, chemotherapy, and radiation initial diagnosis March 2022, biliary stricture with adeno CA s/p attempted mini whipple with concern for carcinomatosis and metastatic breast CA) and Other (Crohn's disease
with ileostomy (?Total colectomy), vitamin B12 deficiency, iron deficiency)
Additional Past Surgical History:
Port, Bowel Resection (Crohn's disease s/p initial ileocecectomy with subsequent total colectomy and end ileostomy previously on 6-MP therapy) and Gynecological (Tubal ligation, breast lumpectomy)
Allergy History:
infliximab [From Remicade] Allergy (Verified 03/28/24 13:33)
Neuropathy, hair loss
mesalamine Allergy (Verified 03/28/24 13:33)
Vomiting
Penicillins Allergy (Verified 03/28/24 13:33)
Hives, Inability to move LE
Medications Reviewed: Yes
Social History
Tobacco: Non-Smoker
Alcohol: Former
Drug: None
Family History
Family History: Not Pertinent and Other ((Mother, and maternal aunt with breast cancer) and Other (No family history of colon cancer, pancreatic cancer, or other GI cancers or disorders))
Review of Systems
Review of Systems
General: Fever
All systems: All other systems were reviewed and were negative (except as listed above)
Vital Signs
Temp Pulse Resp BP Pulse Ox
97.9 F 78 17 109/61 98
03/29/24 07:00 03/29/24 07:00 03/29/24 07:00 03/29/24 07:00 03/29/24 07:00
Physical Exam
Physical Exam
Constitutional: No Acute Distress
Cardiovascular: Regular Rate and S1/S2; Negative Murmur or Rub
Pulmonary: Clear and Symmetric; Negative Wheezes, Rales or Rhonchi
Gastrointestinal: Soft, Non Tender, Non Distended and Normal Bowel Sounds
Skin: Warm and Dry; Negative Rash or Jaundice
Lines: Port (accessed, functional, no erythema or drainage)
Lab / Diagnostic Study Results
03/29/24 04:45
03/29/24 04:45
Abs Immat Gran (auto) 0.8 10^3/uL (0-0.05) H 03/29/24 04:45
Absolute Neuts (auto) 19.1 10^3/uL (1.4-6.5) H 03/29/24 04:45
Absolute Lymphs (auto) 1.1 10^3/uL (1.2-3.4) L 03/29/24 04:45
Absolute Monos (auto) 2.3 10^3/uL (0.1-0.6) H 03/29/24 04:45
Absolute Basos (auto) 0.1 10^3/uL (0-0.2) 03/29/24 04:45
Immature Gran % 3.2 % (0-0.5) H 03/29/24 04:45
Neutrophils % 81.2 % (42.2-75.2) H 03/29/24 04:45
Lymphocytes % 4.7 % (20.5-51.1) L 03/29/24 04:45
Monocytes % 10.0 % (1.7-9.3) H 03/29/24 04:45
Eosinophils % 0.4 % (0-6) 03/29/24 04:45
Basophils % 0.5 % (0-2) 03/29/24 04:45
Lactic Acid 0.6 mmol/L (0.7-2.0) L 03/28/24 15:46
Microbiology Results
Micro:
03/28/24 16:02 Blood Culture - Pending
Blood/Venous
Assessment / Plan
Probable biliary stent obstruction
Penicillin allergy - hives
Port
- note plans for possible transfer, Im in agreement
- send second set of blood cultures as we have an uncontrolled source without ability to get cultures of that source at this time
- extensive exposure to other health care institutions and no prior culture date on file here, even so patient seems to be responding to the current regiment which is reasonable, pseudomonas not a common component of the GI tract, will make the
small adjustment of switching to ceftriaxone, will continue metronidazole at 500 mg iv q8hr
-if any decompensation would add vancomycin and switch other drugs to meropenem
--- NOTE | 2024-03-29 12:18 | W.DCSUMMARY ---
Discharge Summary
Discharge Data
Date of Admission: 03/28/24
Date of Discharge: 03/29/24
-
Pending Results: No
Hospital Course
Primary diagnoses:
Sepsis likely secondary to biliary stent obstruction versus tumor fever from liver metastases
Acute on chronic hyponatremia secondary to syndrome of inappropriate antidiuretic hormone
Secondary diagnoses:
Metastatic breast cancer s/p lumpectomy, chemotherapy, radiation
Crohn's disease status post ileocecectomy with subsequent total colectomy and end ileostomy
Chronic normocytic anemia
B12 deficiency
Osteoporosis
Consultants:
Infectious disease
Gastroenterology
Imaging:
CXR: No new focal consolidation. Left chest wall port with catheter tip terminating in the region of the cavoatrial junction. Unchanged mild bilateral hyperinflation with biapical pleural-parenchymal scarring.
Abd U/S: Prior cholecystectomy. Enlarged common bile duct containing stent as well as intrahepatic biliary tract dilatation, evaluation limited with this imaging modality, biliary tract dilatation also seen on prior MRI December 04, 2023. Suggest
elective MRI for more complete evaluation. Left renal collecting system dilatation as was seen on prior MRI.
Hospital course: 78-year-old female who presented yesterday with chief complaint of fevers outlined in the H&P done on admission. Hospital course per problem list:
Sepsis likely secondary to biliary stent obstruction versus tumor fever from liver metastases: Patient met sepsis criteria on admission. She had a history of biliary stricture status post enterotomy/stenting in November 2023.
Admission labs showed elevation in bilirubin from 0.9-7.4 over the prior 5 days. Abdominal ultrasound above and showed enlarged common bile duct containing stent as well as intrahepatic biliary tract dilatation. Patient received IV fluids. Blood
cultures were sent on March 28, 2024 and March 29, 2024 (1 set each day) which are pending at this time. She was initially on cefepime and Flagyl and transition to Rocephin as per infectious disease. The case was discussed with GI and was
recommended that the patient be transferred to [facility] for endoscopic treatment.
Acute on chronic hyponatremia secondary to syndrome of inappropriate antidiuretic hormone: With sepsis the patient's Na improved with isotonic IVFs. Continue fluid restriction.
Discharge Plan
-
Patient Disposition: Acute Care Hospital
Condition: Fair
Discharge Orders:
Discharge Patient (As Directed); Ordered 03/29/24
Ordered By: Lauren Tuttle
Discharge Date and Time
Print Language: KISWAHILI
[2024-03-29 13:30] VITALS: BMI 18.8
--- NOTE | 2024-03-29 13:30 | PTCARENOTE ---
Gave report to AMANDO Mon from [facility].
[2024-03-29] MEDS: NSS IV (14:23)
[2024-03-29 15:09] VITALS: BP 125/68
--- NOTE | 2024-03-29 17:20 | PTCARENOTE ---
Patient picked up by transport to transfer to [facility].
[2024-03-29 17:25] LABS: Troponin I < 0.012 ng/ml
== END 2024-03-29 18:16 | disposition short-term general hospital (02) | DRG 919 ==
LOC: 3 WEST ACU 18:56
PROVIDERS: Nurse Practitioner; ADMITTING PHYSICIAN Hospitalist; ATTENDING PHYSICIAN Internal Medicine; CONSULT PHYSICIAN Internal Medicine Gastroenterology; EMERGENCY PHYSICIAN Emergency Medicine; FAMILY PHYSICIAN Internal Medicine; OTHER PHYSICIAN Student in an Organized Health Care Education/Training Program
DX: T85.590A Other mechanical complication of bile duct prosthesis, initial encounter (principal); A41.9 Sepsis, unspecified organism; E22.2 Syndrome of inappropriate secretion of antidiuretic hormone; C78.7 Secondary malignant neoplasm of liver and intrahepatic bile duct; K50.90 Crohn's disease, unspecified, without complications; D64.9 Anemia, unspecified; C50.919 Malignant neoplasm of unspecified site of unspecified female breast; Y73.2 Prosthetic and other implants, materials and accessory gastroenterology and urology devices associated with adverse incidents; E53.8 Deficiency of other specified B group vitamins; M81.0 Age-related osteoporosis without current pathological fracture; Z66 Do not resuscitate; K82.8 Other specified diseases of gallbladder; G47.9 Sleep disorder, unspecified; Z79.83 Long term (current) use of bisphosphonates; Z79.899 Other long term (current) drug therapy; Z90.49 Acquired absence of other specified parts of digestive tract; Z92.3 Personal history of irradiation; Z88.0 Allergy status to penicillin; Z88.8 Allergy status to other drugs, medicaments and biological substances; Z80.3 Family history of malignant neoplasm of breast
CPT/HCPCS: 71046; 76700; 80053; 81003; 81015; 83605; 84484; 85025; 86803; 87040; 87811; 99285

== ENCOUNTER → 2024-04-02 08:15 | Outpatient (REF) | payer MEDICARE, OTHER, SELFPAY | LOC: REG 08:15 | PROVIDERS: FAMILY PHYSICIAN Internal Medicine; REFERRING PHYSICIAN Internal Medicine Hematology & Oncology | DX: E83.49 Other disorders of magnesium metabolism (principal); E83.42 Hypomagnesemia; K83.09 Other cholangitis; R79.89 Other specified abnormal findings of blood chemistry | CPT/HCPCS: 36415 ==

== ENCOUNTER → 2024-04-04 09:20 | Outpatient (REF) | payer MEDICARE, OTHER, SELFPAY ==
[2024-04-04 15:01] LABS: % Basophils 1.3 % (0-2); % Eosinophils 1.2 % (0-6); % Immature Granulocytes 1.8 % (0-0.5); % Monocytes 13.8 % (1.7-9.3); % Neutrophils 68.9 % (42.2-75.2); Absolute Basophils 0.1 10^3/uL (0-0.2); Absolute Eosinophils 0.1 10^3/uL (0-0.7); Absolute Immature Granulocytes 0.2 10^3/uL (0-0.05); Absolute Lymphocytes 1.4 10^3/uL (1.2-3.4); Absolute Monocytes 1.5 10^3/uL (0.1-0.6); Absolute Neutrophils 7.3 10^3/uL (1.4-6.5); Hematocrit 25.4 % (37.0-47.0); Hemoglobin 9.2 g/dL (12.0-16.0); Mean Corp Hgb Conc. 36.2 g/dL (33.0-37.0); Mean Corpuscular Hgb 34.5 pg (27.0-31.0); Mean Corpuscular Volume 95.1 fL (81.0-99.0); Mean Platelet Volume 9.2 fL (7.4-10.4); Nucleated Red Blood Cells % 0 %; Platelet Count 511 10^3/uL (130-400); Red Blood Cell Count 2.67 10^6/uL (4.20-5.40); Red Cell Dist. Width 21.8 % (11.5-14.5); White Blood Cell Count 10.6 10^3/uL (4.8-10.8)
[2024-04-04 15:23] LABS: ALT (SGPT) 62 U/L (0-35); AST (SGOT) 83 U/L (14-36); Albumin 3.3 g/dl (3.5-5.0); Alkaline Phosphatase 309 U/L (38-126); Blood Urea Nitrogen 18 mg/dl (7-17); Calcium 9.5 mg/dl (8.4-10.2); Carbon Dioxide 28 mmol/L (22-30); Chloride 98 mmol/L (98-107); Direct Bilirubin 1.3 mg/dl (0.0-0.4); Glucose 100 mg/dl (70-99); Phosphorus 3.8 mg/dl (2.5-4.5); Potassium 4.4 mmol/L (3.5-5.1); Sodium 131 mmol/L (135-145); Total Bilirubin 1.6 mg/dl (0.2-1.3); Total Protein 5.9 g/dl (6.3-8.2); eGFR > 60.00
[2024-04-06 17:40] LABS: CA 27-29 55.6 U/mL (<=39.0)
[2024-04-06 23:55] LABS: CA 19-9 4247 U/mL (<=35)
== END ==
LOC: WDC 09:20
PROVIDERS: FAMILY PHYSICIAN Internal Medicine; OTHER PHYSICIAN Internal Medicine Hematology & Oncology; OTHER PHYSICIAN Obstetrics & Gynecology Gynecology
DX: Z12.31 Encounter for screening mammogram for malignant neoplasm of breast (principal); R92.8 Other abnormal and inconclusive findings on diagnostic imaging of breast; C50.212 Malignant neoplasm of upper-inner quadrant of left female breast; N83.292 Other ovarian cyst, left side; L03.112 Cellulitis of left axilla; L76.34 Postprocedural seroma of skin and subcutaneous tissue following other procedure; G90.09 Other idiopathic peripheral autonomic neuropathy; C78.6 Secondary malignant neoplasm of retroperitoneum and peritoneum; C78.7 Secondary malignant neoplasm of liver and intrahepatic bile duct; E83.39 Other disorders of phosphorus metabolism; E83.42 Hypomagnesemia; K83.09 Other cholangitis; R79.89 Other specified abnormal findings of blood chemistry
CPT/HCPCS: 36415; 76642; 77063; 77067; 80053; 82248; 84100; 85025; 86300; 86301

== ENCOUNTER → 2024-04-12 10:40 | Outpatient (REF) | payer MEDICARE, OTHER, SELFPAY ==
[2024-04-12 11:58] LABS: % Eosinophils 1.8 % (0-6); % Immature Granulocytes 0.4 % (0-0.5); % Lymphocytes 14.3 % (20.5-51.1); % Neutrophils 80.5 % (42.2-75.2); Absolute Basophils 0.1 10^3/uL (0-0.2); Absolute Eosinophils 0.1 10^3/uL (0-0.7); Absolute Lymphocytes 0.7 10^3/uL (1.2-3.4); Absolute Monocytes 0.1 10^3/uL (0.1-0.6); Absolute Neutrophils 3.9 10^3/uL (1.4-6.5); Hematocrit 26.9 % (37.0-47.0); Hemoglobin 9.4 g/dL (12.0-16.0); Mean Corp Hgb Conc. 34.9 g/dL (33.0-37.0); Mean Corpuscular Hgb 35.9 pg (27.0-31.0); Mean Corpuscular Volume 102.7 fL (81.0-99.0); Nucleated Red Blood Cells % 0 %; Platelet Count 405 10^3/uL (130-400); Red Blood Cell Count 2.62 10^6/uL (4.20-5.40); White Blood Cell Count 4.9 10^3/uL (4.8-10.8)
[2024-04-12 12:11] LABS: ALT (SGPT) 65 U/L (0-35); AST (SGOT) 64 U/L (14-36); Albumin 3.5 g/dl (3.5-5.0); Alkaline Phosphatase 230 U/L (38-126); Blood Urea Nitrogen 13 mg/dl (7-17); Calcium 9.4 mg/dl (8.4-10.2); Carbon Dioxide 27 mmol/L (22-30); Chloride 98 mmol/L (98-107); Glucose 92 mg/dl (70-99); Potassium 4.5 mmol/L (3.5-5.1); Sodium 131 mmol/L (135-145); Total Bilirubin 1.5 mg/dl (0.2-1.3); eGFR > 60.00
== END ==
LOC: REG 10:40
PROVIDERS: ATTENDING PHYSICIAN Internal Medicine Hematology & Oncology; FAMILY PHYSICIAN Internal Medicine
DX: C50.212 Malignant neoplasm of upper-inner quadrant of left female breast (principal); N83.292 Other ovarian cyst, left side; L03.112 Cellulitis of left axilla; L76.34 Postprocedural seroma of skin and subcutaneous tissue following other procedure; G90.09 Other idiopathic peripheral autonomic neuropathy; C78.6 Secondary malignant neoplasm of retroperitoneum and peritoneum; C78.7 Secondary malignant neoplasm of liver and intrahepatic bile duct
CPT/HCPCS: 36415; 80053; 85025

== ENCOUNTER → 2024-04-18 11:24 | Outpatient (REF) | payer MEDICARE, OTHER, SELFPAY | LOC: RAD 11:24 | PROVIDERS: ATTENDING PHYSICIAN Obstetrics & Gynecology Gynecology; FAMILY PHYSICIAN Internal Medicine | DX: M81.0 Age-related osteoporosis without current pathological fracture (principal) | CPT/HCPCS: 77080 ==

== ENCOUNTER → 2024-04-26 11:07 | Outpatient (REF) | payer MEDICARE, OTHER, SELFPAY ==
[2024-04-26 12:43] LABS: Hematocrit 31.6 % (37.0-47.0); Hemoglobin 10.5 g/dL (12.0-16.0); Mean Corp Hgb Conc. 33.2 g/dL (33.0-37.0); Mean Corpuscular Hgb 35.4 pg (27.0-31.0); Mean Corpuscular Volume 106.4 fL (81.0-99.0); Mean Platelet Volume 9.5 fL (7.4-10.4); Platelet Count 287 10^3/uL (130-400); Red Blood Cell Count 2.97 10^6/uL (4.20-5.40); White Blood Cell Count 19.2 10^3/uL (4.8-10.8)
[2024-04-26 13:17] LABS: % Basophils 0.3 % (0-2); % Eosinophils 1.4 % (0-6); % Immature Granulocytes 1.6 % (0-0.5); % Lymphocytes 9.4 % (20.5-51.1); % Monocytes 11.3 % (1.7-9.3); Absolute Basophils 0.1 10^3/uL (0-0.2); Absolute Eosinophils 0.3 10^3/uL (0-0.7); Absolute Immature Granulocytes 0.3 10^3/uL (0-0.05); Absolute Lymphocytes 1.8 10^3/uL (1.2-3.4); Absolute Monocytes 2.2 10^3/uL (0.1-0.6); Absolute Neutrophils 14.6 10^3/uL (1.4-6.5); Nucleated Red Blood Cells % 0 %
[2024-04-26 13:36] LABS: ALT (SGPT) 54 U/L (0-35); AST (SGOT) 52 U/L (14-36); Alkaline Phosphatase 290 U/L (38-126); Blood Urea Nitrogen 17 mg/dl (7-17); Calcium 9.6 mg/dl (8.4-10.2); Carbon Dioxide 29 mmol/L (22-30); Chloride 100 mmol/L (98-107); Glucose 75 mg/dl (70-99); Potassium 4.3 mmol/L (3.5-5.1); Sodium 139 mmol/L (135-145); Total Bilirubin 0.7 mg/dl (0.2-1.3); Total Protein 6.6 g/dl (6.3-8.2); eGFR > 60.00
== END ==
LOC: RAD 11:07
PROVIDERS: ATTENDING PHYSICIAN Registered Nurse; FAMILY PHYSICIAN Internal Medicine; REFERRING PHYSICIAN Internal Medicine Hematology & Oncology
DX: S25.10 Unspecified injury of innominate or subclavian artery (principal); C50.212 Malignant neoplasm of upper-inner quadrant of left female breast; N83.292 Other ovarian cyst, left side; L03.112 Cellulitis of left axilla; L76.34 Postprocedural seroma of skin and subcutaneous tissue following other procedure; G90.09 Other idiopathic peripheral autonomic neuropathy; C78.6 Secondary malignant neoplasm of retroperitoneum and peritoneum; C78.7 Secondary malignant neoplasm of liver and intrahepatic bile duct
CPT/HCPCS: 36415; 80053; 85025; 93931

== ENCOUNTER → 2024-04-28 16:16 | Outpatient (REF) | payer MEDICARE, OTHER, SELFPAY ==
[2024-04-28 14:12] LABS: % Basophils 0.5 % (0-2); % Eosinophils 1.2 % (0-6); % Immature Granulocytes 0.9 % (0-0.5); % Lymphocytes 11.4 % (20.5-51.1); % Monocytes 11.5 % (1.7-9.3); % Neutrophils 74.5 % (42.2-75.2); Absolute Basophils 0.1 10^3/uL (0-0.2); Absolute Eosinophils 0.2 10^3/uL (0-0.7); Absolute Immature Granulocytes 0.2 10^3/uL (0-0.05); Absolute Lymphocytes 1.9 10^3/uL (1.2-3.4); Absolute Monocytes 1.9 10^3/uL (0.1-0.6); Absolute Neutrophils 12.6 10^3/uL (1.4-6.5); Hematocrit 30.2 % (37.0-47.0); Mean Corp Hgb Conc. 33.1 g/dL (33.0-37.0); Mean Corpuscular Hgb 35.6 pg (27.0-31.0); Mean Corpuscular Volume 107.5 fL (81.0-99.0); Mean Platelet Volume 8.9 fL (7.4-10.4); Platelet Count 414 10^3/uL (130-400); Red Blood Cell Count 2.81 10^6/uL (4.20-5.40); Red Cell Dist. Width 19.1 % (11.5-14.5); White Blood Cell Count 16.9 10^3/uL (4.8-10.8)
[2024-04-28 15:48] LABS: ALT (SGPT) 44 U/L (0-35); AST (SGOT) 46 U/L (14-36); Albumin 3.8 g/dl (3.5-5.0); Alkaline Phosphatase 244 U/L (38-126); Blood Urea Nitrogen 18 mg/dl (7-17); Calcium 9.8 mg/dl (8.4-10.2); Carbon Dioxide 24 mmol/L (22-30); Chloride 101 mmol/L (98-107); Glucose 104 mg/dl (70-99); Potassium 4.3 mmol/L (3.5-5.1); Sodium 139 mmol/L (135-145); Total Bilirubin 0.6 mg/dl (0.2-1.3); Total Protein 6.4 g/dl (6.3-8.2); eGFR > 60.00
[2024-04-29 09:18] LABS: Iron 72 ug/dl (37-170)
[2024-04-29 09:27] LABS: Percent Saturation 23 % (20-50); Total Iron Binding Capacity 303 ug/dl (265-497)
[2024-04-29 11:51] LABS: Folate > 20.0 ng/ml (2.76-20); Vitamin B12 > 1000 pg/ml (239-931)
[2024-05-01 02:25] LABS: CA 27-29 50.3 U/mL (<=39.0)
[2024-05-01 03:02] LABS: CA 19-9 193 U/mL (<=35)
== END ==
LOC: OIDL 16:16
PROVIDERS: ATTENDING PHYSICIAN Nurse Practitioner Adult Health
DX: C50.212 Malignant neoplasm of upper-inner quadrant of left female breast (principal); N83.292 Other ovarian cyst, left side; L03.112 Cellulitis of left axilla; L76.34 Postprocedural seroma of skin and subcutaneous tissue following other procedure; G90.09 Other idiopathic peripheral autonomic neuropathy; C78.6 Secondary malignant neoplasm of retroperitoneum and peritoneum; C78.7 Secondary malignant neoplasm of liver and intrahepatic bile duct; D51.9 Vitamin B12 deficiency anemia, unspecified
CPT/HCPCS: 80053; 82607; 82728; 82746; 83540; 83550; 85025; 86300; 86301

== ENCOUNTER → 2024-05-03 10:34 | Outpatient (REF) | payer MEDICARE, OTHER, SELFPAY ==
[2024-05-03 11:50] LABS: Hematocrit 30.8 % (37.0-47.0); Hemoglobin 10.5 g/dL (12.0-16.0); Mean Corp Hgb Conc. 34.1 g/dL (33.0-37.0); Mean Corpuscular Hgb 36.1 pg (27.0-31.0); Mean Corpuscular Volume 105.8 fL (81.0-99.0); Mean Platelet Volume 8.8 fL (7.4-10.4); Platelet Count 402 10^3/uL (130-400); Red Blood Cell Count 2.91 10^6/uL (4.20-5.40); Red Cell Dist. Width 17.2 % (11.5-14.5); White Blood Cell Count 3.8 10^3/uL (4.8-10.8)
[2024-05-03 12:18] LABS: ALT (SGPT) 46 U/L (0-35); AST (SGOT) 55 U/L (14-36); Albumin 3.8 g/dl (3.5-5.0); Alkaline Phosphatase 199 U/L (38-126); Blood Urea Nitrogen 16 mg/dl (7-17); Calcium 9.2 mg/dl (8.4-10.2); Carbon Dioxide 27 mmol/L (22-30); Chloride 102 mmol/L (98-107); Glucose 74 mg/dl (70-99); Potassium 4.5 mmol/L (3.5-5.1); Sodium 139 mmol/L (135-145); Total Bilirubin 0.5 mg/dl (0.2-1.3); Total Protein 6.4 g/dl (6.3-8.2); eGFR > 60.00
[2024-05-03 14:40] LABS: % Basophils 1.3 % (0-2); % Eosinophils 2.9 % (0-6); % Immature Granulocytes 1.1 % (0-0.5); % Lymphocytes 24.5 % (20.5-51.1); % Monocytes 3.4 % (1.7-9.3); % Neutrophils 66.8 % (42.2-75.2); Absolute Basophils 0.1 10^3/uL (0-0.2); Absolute Eosinophils 0.1 10^3/uL (0-0.7); Absolute Lymphocytes 0.9 10^3/uL (1.2-3.4); Absolute Monocytes 0.1 10^3/uL (0.1-0.6); Absolute Neutrophils 2.5 10^3/uL (1.4-6.5); Nucleated Red Blood Cells % 0 %
== END ==
LOC: REG 10:34
PROVIDERS: ATTENDING PHYSICIAN Internal Medicine Hematology & Oncology; FAMILY PHYSICIAN Internal Medicine
DX: C50.212 Malignant neoplasm of upper-inner quadrant of left female breast (principal); N83.292 Other ovarian cyst, left side; L03.112 Cellulitis of left axilla; L76.34 Postprocedural seroma of skin and subcutaneous tissue following other procedure; G90.09 Other idiopathic peripheral autonomic neuropathy; C78.6 Secondary malignant neoplasm of retroperitoneum and peritoneum; C78.7 Secondary malignant neoplasm of liver and intrahepatic bile duct
CPT/HCPCS: 36415; 80053; 85025

== ENCOUNTER → 2024-05-16 14:58 | Outpatient (REF) | payer MEDICARE, OTHER, SELFPAY ==
[2024-05-16 16:09] LABS: Hematocrit 28.8 % (37.0-47.0); Hemoglobin 9.9 g/dL (12.0-16.0); Mean Corp Hgb Conc. 34.4 g/dL (33.0-37.0); Mean Corpuscular Hgb 36.7 pg (27.0-31.0); Mean Corpuscular Volume 106.7 fL (81.0-99.0); Mean Platelet Volume 9.9 fL (7.4-10.4); Platelet Count 124 10^3/uL (130-400); Red Cell Dist. Width 17.4 % (11.5-14.5); White Blood Cell Count 22.9 10^3/uL (4.8-10.8)
[2024-05-16 16:14] LABS: ALT (SGPT) 48 U/L (0-35); AST (SGOT) 51 U/L (14-36); Alkaline Phosphatase 218 U/L (38-126); Blood Urea Nitrogen 17 mg/dl (7-17); Calcium 9.4 mg/dl (8.4-10.2); Carbon Dioxide 25 mmol/L (22-30); Chloride 102 mmol/L (98-107); Glucose 91 mg/dl (70-99); Sodium 139 mmol/L (135-145); Total Bilirubin 0.4 mg/dl (0.2-1.3); Total Protein 6.6 g/dl (6.3-8.2); eGFR > 60.00
[2024-05-16 16:30] LABS: % Basophils 0.7 % (0-2); % Eosinophils 1.3 % (0-6); % Lymphocytes 9.5 % (20.5-51.1); % Monocytes 11.5 % (1.7-9.3); Absolute Basophils 0.2 10^3/uL (0-0.2); Absolute Eosinophils 0.3 10^3/uL (0-0.7); Absolute Immature Granulocytes 0.9 10^3/uL (0-0.05); Absolute Lymphocytes 2.2 10^3/uL (1.2-3.4); Absolute Monocytes 2.6 10^3/uL (0.1-0.6); Absolute Neutrophils 16.7 10^3/uL (1.4-6.5); Nucleated Red Blood Cells % 0 %
== END ==
LOC: REG 14:58
PROVIDERS: ATTENDING PHYSICIAN Internal Medicine Hematology & Oncology; FAMILY PHYSICIAN Internal Medicine
DX: C50.212 Malignant neoplasm of upper-inner quadrant of left female breast (principal); N83.292 Other ovarian cyst, left side; L03.112 Cellulitis of left axilla; L76.34 Postprocedural seroma of skin and subcutaneous tissue following other procedure; G90.09 Other idiopathic peripheral autonomic neuropathy; C78.6 Secondary malignant neoplasm of retroperitoneum and peritoneum; C78.7 Secondary malignant neoplasm of liver and intrahepatic bile duct
CPT/HCPCS: 36415; 80053; 85025

== ENCOUNTER → 2024-05-24 14:16 | Outpatient (REF) | payer MEDICARE, OTHER, SELFPAY ==
[2024-05-24 14:57] LABS: % Basophils 1.1 % (0-2); % Eosinophils 2.8 % (0-6); % Immature Granulocytes 0.8 % (0-0.5); % Lymphocytes 19.6 % (20.5-51.1); % Monocytes 4.5 % (1.7-9.3); % Neutrophils 71.2 % (42.2-75.2); Absolute Basophils 0.1 10^3/uL (0-0.2); Absolute Eosinophils 0.2 10^3/uL (0-0.7); Absolute Monocytes 0.2 10^3/uL (0.1-0.6); Absolute Neutrophils 3.8 10^3/uL (1.4-6.5); Hematocrit 28.5 % (37.0-47.0); Hemoglobin 9.5 g/dL (12.0-16.0); Mean Corp Hgb Conc. 33.3 g/dL (33.0-37.0); Mean Corpuscular Hgb 34.7 pg (27.0-31.0); Mean Platelet Volume 8.8 fL (7.4-10.4); Nucleated Red Blood Cells % 0 %; Platelet Count 408 10^3/uL (130-400); Red Blood Cell Count 2.74 10^6/uL (4.20-5.40); Red Cell Dist. Width 16.1 % (11.5-14.5); White Blood Cell Count 5.3 10^3/uL (4.8-10.8)
[2024-05-24 15:15] LABS: ALT (SGPT) 47 U/L (0-35); AST (SGOT) 59 U/L (14-36); Albumin 3.9 g/dl (3.5-5.0); Alkaline Phosphatase 128 U/L (38-126); Blood Urea Nitrogen 19 mg/dl (7-17); Calcium 9.5 mg/dl (8.4-10.2); Carbon Dioxide 26 mmol/L (22-30); Chloride 100 mmol/L (98-107); Glucose 99 mg/dl (70-99); Potassium 4.1 mmol/L (3.5-5.1); Sodium 137 mmol/L (135-145); Total Bilirubin 0.3 mg/dl (0.2-1.3); Total Protein 6.3 g/dl (6.3-8.2); eGFR > 60.00
== END ==
LOC: REG 14:16
PROVIDERS: ATTENDING PHYSICIAN Internal Medicine Hematology & Oncology; FAMILY PHYSICIAN Internal Medicine
DX: C50.212 Malignant neoplasm of upper-inner quadrant of left female breast (principal); N83.292 Other ovarian cyst, left side; L03.122 Acute lymphangitis of left axilla; L76.34 Postprocedural seroma of skin and subcutaneous tissue following other procedure; G90.09 Other idiopathic peripheral autonomic neuropathy; C78.6 Secondary malignant neoplasm of retroperitoneum and peritoneum; C78.7 Secondary malignant neoplasm of liver and intrahepatic bile duct
CPT/HCPCS: 36415; 80053; 85025

== ENCOUNTER → 2024-05-30 12:09 | Outpatient (REF) | payer MEDICARE, OTHER, SELFPAY ==
[2024-06-01 21:06] LABS: CA 19-9 77 U/mL (<=35)
[2024-06-02 00:06] LABS: CA 27-29 53.2 U/mL (<=39.0)
== END ==
LOC: REG 12:09
PROVIDERS: ATTENDING PHYSICIAN Internal Medicine Hematology & Oncology; FAMILY PHYSICIAN Internal Medicine
DX: C50.212 Malignant neoplasm of upper-inner quadrant of left female breast (principal); N83.292 Other ovarian cyst, left side; L03.112 Cellulitis of left axilla; L76.34 Postprocedural seroma of skin and subcutaneous tissue following other procedure; G90.09 Other idiopathic peripheral autonomic neuropathy; C78.6 Secondary malignant neoplasm of retroperitoneum and peritoneum; C78.7 Secondary malignant neoplasm of liver and intrahepatic bile duct
CPT/HCPCS: 36415; 86300; 86301

== ENCOUNTER → 2024-05-31 09:01 | Outpatient (REF) | payer MEDICARE, OTHER, SELFPAY | LOC: RAD 09:01 | PROVIDERS: ATTENDING PHYSICIAN Internal Medicine Hematology & Oncology; FAMILY PHYSICIAN Internal Medicine | DX: C50.212 Malignant neoplasm of upper-inner quadrant of left female breast (principal); C78.6 Secondary malignant neoplasm of retroperitoneum and peritoneum | CPT/HCPCS: 71260; 74177; Q9967 ==

== ENCOUNTER → 2024-06-07 11:30 | Outpatient (REF) | payer MEDICARE, OTHER, SELFPAY ==
[2024-06-07 12:06] LABS: % Basophils 0.7 % (0-2); % Immature Granulocytes 1.3 % (0-0.5); % Lymphocytes 10.4 % (20.5-51.1); % Monocytes 13.1 % (1.7-9.3); % Neutrophils 73.5 % (42.2-75.2); Absolute Basophils 0.1 10^3/uL (0-0.2); Absolute Eosinophils 0.2 10^3/uL (0-0.7); Absolute Immature Granulocytes 0.2 10^3/uL (0-0.05); Absolute Lymphocytes 1.7 10^3/uL (1.2-3.4); Absolute Monocytes 2.2 10^3/uL (0.1-0.6); Absolute Neutrophils 12.3 10^3/uL (1.4-6.5); Hemoglobin 10.1 g/dL (12.0-16.0); Mean Corp Hgb Conc. 33.7 g/dL (33.0-37.0); Mean Corpuscular Hgb 36.1 pg (27.0-31.0); Mean Corpuscular Volume 107.1 fL (81.0-99.0); Mean Platelet Volume 9.7 fL (7.4-10.4); Nucleated Red Blood Cells % 0 %; Platelet Count 114 10^3/uL (130-400); Red Cell Dist. Width 15.9 % (11.5-14.5); White Blood Cell Count 16.7 10^3/uL (4.8-10.8)
[2024-06-07 12:46] LABS: ALT (SGPT) 47 U/L (0-35); AST (SGOT) 44 U/L (14-36); Albumin 3.9 g/dl (3.5-5.0); Alkaline Phosphatase 192 U/L (38-126); Blood Urea Nitrogen 16 mg/dl (7-17); Calcium 9.5 mg/dl (8.4-10.2); Carbon Dioxide 28 mmol/L (22-30); Chloride 101 mmol/L (98-107); Glucose 79 mg/dl (70-99); Potassium 4.6 mmol/L (3.5-5.1); Sodium 138 mmol/L (135-145); Total Bilirubin 0.2 mg/dl (0.2-1.3); Total Protein 6.3 g/dl (6.3-8.2); eGFR > 60.00
== END ==
LOC: REG 11:30
PROVIDERS: ATTENDING PHYSICIAN Internal Medicine Hematology & Oncology; FAMILY PHYSICIAN Internal Medicine
DX: C50.212 Malignant neoplasm of upper-inner quadrant of left female breast (principal); N83.292 Other ovarian cyst, left side; L03.112 Cellulitis of left axilla; L76.34 Postprocedural seroma of skin and subcutaneous tissue following other procedure; G90.09 Other idiopathic peripheral autonomic neuropathy; C78.6 Secondary malignant neoplasm of retroperitoneum and peritoneum; C78.7 Secondary malignant neoplasm of liver and intrahepatic bile duct
CPT/HCPCS: 36415; 80053; 85025

== ENCOUNTER → 2024-06-14 10:18 | Outpatient (REF) | payer MEDICARE, OTHER, SELFPAY | LOC: RCS 10:18 | PROVIDERS: ATTENDING PHYSICIAN Internal Medicine Hematology & Oncology; FAMILY PHYSICIAN Internal Medicine | DX: C50.212 Malignant neoplasm of upper-inner quadrant of left female breast (principal); C78.6 Secondary malignant neoplasm of retroperitoneum and peritoneum; C78.7 Secondary malignant neoplasm of liver and intrahepatic bile duct | CPT/HCPCS: 93306; 93356 ==

== ENCOUNTER → 2024-06-15 14:20 | Outpatient (REF) | payer MEDICARE, OTHER, SELFPAY ==
[2024-06-15 11:23] LABS: % Basophils 0.7 % (0-2); % Eosinophils 2.3 % (0-6); % Immature Granulocytes 0.2 % (0-0.5); % Lymphocytes 13.1 % (20.5-51.1); % Monocytes 18.5 % (1.7-9.3); % Neutrophils 65.2 % (42.2-75.2); Absolute Basophils 0.1 10^3/uL (0-0.2); Absolute Eosinophils 0.2 10^3/uL (0-0.7); Absolute Lymphocytes 1.2 10^3/uL (1.2-3.4); Absolute Monocytes 1.7 10^3/uL (0.1-0.6); Absolute Neutrophils 5.9 10^3/uL (1.4-6.5); Hematocrit 33.1 % (37.0-47.0); Mean Corp Hgb Conc. 33.2 g/dL (33.0-37.0); Mean Corpuscular Hgb 35.4 pg (27.0-31.0); Mean Corpuscular Volume 106.4 fL (81.0-99.0); Mean Platelet Volume 8.9 fL (7.4-10.4); Platelet Count 406 10^3/uL (130-400); Red Blood Cell Count 3.11 10^6/uL (4.20-5.40); Red Cell Dist. Width 15.3 % (11.5-14.5); White Blood Cell Count 9.1 10^3/uL (4.8-10.8)
[2024-06-15 12:49] LABS: ALT (SGPT) 90 U/L (0-35); AST (SGOT) 66 U/L (14-36); Albumin 3.7 g/dl (3.5-5.0); Alkaline Phosphatase 191 U/L (38-126); Blood Urea Nitrogen 14 mg/dl (7-17); Calcium 9.5 mg/dl (8.4-10.2); Carbon Dioxide 27 mmol/L (22-30); Chloride 101 mmol/L (98-107); Glucose 91 mg/dl (70-99); Potassium 4.5 mmol/L (3.5-5.1); Sodium 137 mmol/L (135-145); Total Bilirubin 0.2 mg/dl (0.2-1.3); Total Protein 6.3 g/dl (6.3-8.2); eGFR > 60.00
== END ==
LOC: OIDL 14:20
PROVIDERS: ATTENDING PHYSICIAN Internal Medicine Hematology & Oncology
DX: C50.212 Malignant neoplasm of upper-inner quadrant of left female breast (principal)
CPT/HCPCS: 80053; 85025

== ENCOUNTER → 2024-07-05 08:16 | Outpatient (REF) | payer MEDICARE, OTHER, SELFPAY ==
[2024-07-05 08:49] LABS: % Eosinophils 7.1 % (0-6); % Immature Granulocytes 0.3 % (0-0.5); % Lymphocytes 23.7 % (20.5-51.1); % Monocytes 15.5 % (1.7-9.3); % Neutrophils 51.4 % (42.2-75.2); Absolute Basophils 0.1 10^3/uL (0-0.2); Absolute Eosinophils 0.3 10^3/uL (0-0.7); Absolute Lymphocytes 0.9 10^3/uL (1.2-3.4); Absolute Monocytes 0.6 10^3/uL (0.1-0.6); Hematocrit 35.2 % (37.0-47.0); Hemoglobin 11.9 g/dL (12.0-16.0); Mean Corp Hgb Conc. 33.8 g/dL (33.0-37.0); Mean Corpuscular Hgb 35.1 pg (27.0-31.0); Mean Corpuscular Volume 103.8 fL (81.0-99.0); Mean Platelet Volume 8.9 fL (7.4-10.4); Nucleated Red Blood Cells % 0 %; Platelet Count 291 10^3/uL (130-400); Red Blood Cell Count 3.39 10^6/uL (4.20-5.40); Red Cell Dist. Width 14.2 % (11.5-14.5); White Blood Cell Count 3.9 10^3/uL (4.8-10.8)
[2024-07-07 01:09] LABS: CA 27-29 53.6 U/mL (<=39.0)
[2024-07-07 15:22] LABS: CA 19-9 139 U/mL (<=35)
== END ==
LOC: REG 08:16
PROVIDERS: ATTENDING PHYSICIAN Internal Medicine Hematology & Oncology; FAMILY PHYSICIAN Internal Medicine
DX: C50.212 Malignant neoplasm of upper-inner quadrant of left female breast (principal); N83.292 Other ovarian cyst, left side; L03.112 Cellulitis of left axilla; L76.34 Postprocedural seroma of skin and subcutaneous tissue following other procedure; G90.09 Other idiopathic peripheral autonomic neuropathy; C78.6 Secondary malignant neoplasm of retroperitoneum and peritoneum; C78.7 Secondary malignant neoplasm of liver and intrahepatic bile duct
CPT/HCPCS: 36415; 85025; 86300; 86301

== ENCOUNTER → 2024-07-06 10:12 | Outpatient (REF) | payer MEDICARE, OTHER, SELFPAY ==
[2024-07-06 12:39] LABS: ALT (SGPT) 62 U/L (0-35); AST (SGOT) 57 U/L (14-36); Albumin 3.9 g/dl (3.5-5.0); Alkaline Phosphatase 80 U/L (38-126); Blood Urea Nitrogen 18 mg/dl (7-17); Calcium 9.6 mg/dl (8.4-10.2); Carbon Dioxide 29 mmol/L (22-30); Chloride 100 mmol/L (98-107); Glucose 77 mg/dl (70-99); Potassium 4.3 mmol/L (3.5-5.1); Sodium 136 mmol/L (135-145); Total Bilirubin 0.3 mg/dl (0.2-1.3); Total Protein 6.5 g/dl (6.3-8.2); eGFR > 60.00
== END ==
LOC: HWRAD 10:12
PROVIDERS: ATTENDING PHYSICIAN Internal Medicine Hematology & Oncology; FAMILY PHYSICIAN Internal Medicine
DX: C50.212 Malignant neoplasm of upper-inner quadrant of left female breast (principal); N83.292 Other ovarian cyst, left side; L03.112 Cellulitis of left axilla; L76.34 Postprocedural seroma of skin and subcutaneous tissue following other procedure; G90.09 Other idiopathic peripheral autonomic neuropathy; C78.6 Secondary malignant neoplasm of retroperitoneum and peritoneum; C78.7 Secondary malignant neoplasm of liver and intrahepatic bile duct
CPT/HCPCS: 36415; 76830; 76856; 80053

== ENCOUNTER → 2024-07-26 13:31 | Outpatient (REF) | payer MEDICARE, OTHER, SELFPAY ==
[2024-07-26 14:39] LABS: ALT (SGPT) 58 U/L (0-35); AST (SGOT) 56 U/L (14-36); Albumin 3.9 g/dl (3.5-5.0); Alkaline Phosphatase 126 U/L (38-126); Blood Urea Nitrogen 21 mg/dl (7-17); Calcium 9.5 mg/dl (8.4-10.2); Carbon Dioxide 30 mmol/L (22-30); Chloride 101 mmol/L (98-107); Glucose 89 mg/dl (70-99); Potassium 4.4 mmol/L (3.5-5.1); Sodium 138 mmol/L (135-145); Total Bilirubin 0.2 mg/dl (0.2-1.3); Total Protein 6.7 g/dl (6.3-8.2); eGFR > 60.00
[2024-07-26 14:41] LABS: Hematocrit 33.3 % (37.0-47.0); Hemoglobin 11.6 g/dL (12.0-16.0); Mean Corp Hgb Conc. 34.8 g/dL (33.0-37.0); Mean Corpuscular Volume 103.4 fL (81.0-99.0); Mean Platelet Volume 8.9 fL (7.4-10.4); Platelet Count 295 10^3/uL (130-400); Red Blood Cell Count 3.22 10^6/uL (4.20-5.40); Red Cell Dist. Width 14.4 % (11.5-14.5); White Blood Cell Count 5.1 10^3/uL (4.8-10.8)
[2024-07-26 15:29] LABS: % Basophils 1.8 % (0-2); % Eosinophils 4.6 % (0-6); % Immature Granulocytes 0.2 % (0-0.5); % Lymphocytes 26.7 % (20.5-51.1); % Monocytes 10.3 % (1.7-9.3); % Neutrophils 56.4 % (42.2-75.2); Absolute Basophils 0.1 10^3/uL (0-0.2); Absolute Eosinophils 0.2 10^3/uL (0-0.7); Absolute Lymphocytes 1.4 10^3/uL (1.2-3.4); Absolute Monocytes 0.5 10^3/uL (0.1-0.6); Absolute Neutrophils 2.9 10^3/uL (1.4-6.5); Nucleated Red Blood Cells % 0 %
[2024-07-28 23:09] LABS: CA 27-29 43.7 U/mL (<=39.0)
== END ==
LOC: REG 13:31
PROVIDERS: ATTENDING PHYSICIAN Internal Medicine Hematology & Oncology
DX: C50.212 Malignant neoplasm of upper-inner quadrant of left female breast (principal); N83.292 Other ovarian cyst, left side; L03.112 Cellulitis of left axilla; L76.34 Postprocedural seroma of skin and subcutaneous tissue following other procedure; G90.09 Other idiopathic peripheral autonomic neuropathy; C78.6 Secondary malignant neoplasm of retroperitoneum and peritoneum; C78.7 Secondary malignant neoplasm of liver and intrahepatic bile duct
CPT/HCPCS: 36415; 80053; 85025; 86300; 86301

== ENCOUNTER → 2024-08-01 17:39 | Outpatient (REF) | payer MEDICARE, OTHER, SELFPAY | LOC: PAVMRI 17:39 | PROVIDERS: ATTENDING PHYSICIAN Obstetrics & Gynecology Gynecologic Oncology; FAMILY PHYSICIAN Internal Medicine | DX: R19.07 Generalized intra-abdominal and pelvic swelling, mass and lump (principal) | CPT/HCPCS: 72197; A9575 ==

== ENCOUNTER → 2024-08-15 11:53 | Outpatient (REF) | payer MEDICARE, OTHER, SELFPAY ==
[2024-08-15 13:27] LABS: ALT (SGPT) 86 U/L (0-35); AST (SGOT) 66 U/L (14-36); Albumin 3.8 g/dl (3.5-5.0); Alkaline Phosphatase 153 U/L (38-126); Blood Urea Nitrogen 18 mg/dl (7-17); Calcium 9.5 mg/dl (8.4-10.2); Carbon Dioxide 30 mmol/L (22-30); Chloride 103 mmol/L (98-107); Glucose 95 mg/dl (70-99); Potassium 4.1 mmol/L (3.5-5.1); Sodium 136 mmol/L (135-145); Total Bilirubin 0.4 mg/dl (0.2-1.3); Total Protein 6.6 g/dl (6.3-8.2); eGFR > 60.00
[2024-08-15 14:04] LABS: Hematocrit 35.8 % (37.0-47.0); Hemoglobin 11.6 g/dL (12.0-16.0); Mean Corp Hgb Conc. 32.4 g/dL (33.0-37.0); Mean Platelet Volume 8.8 fL (7.4-10.4); Platelet Count 270 10^3/uL (130-400); Red Blood Cell Count 3.51 10^6/uL (4.20-5.40); Red Cell Dist. Width 14.6 % (11.5-14.5); White Blood Cell Count 3.5 10^3/uL (4.8-10.8)
[2024-08-15 14:11] LABS: % Basophils 2.3 % (0-2); % Eosinophils 3.7 % (0-6); % Immature Granulocytes 0.3 % (0-0.5); % Lymphocytes 31.8 % (20.5-51.1); % Monocytes 11.7 % (1.7-9.3); % Neutrophils 50.2 % (42.2-75.2); Absolute Basophils 0.1 10^3/uL (0-0.2); Absolute Eosinophils 0.1 10^3/uL (0-0.7); Absolute Lymphocytes 1.1 10^3/uL (1.2-3.4); Absolute Monocytes 0.4 10^3/uL (0.1-0.6); Absolute Neutrophils 1.8 10^3/uL (1.4-6.5); Nucleated Red Blood Cells % 0 %
== END ==
LOC: REG 11:53
PROVIDERS: ATTENDING PHYSICIAN Internal Medicine Hematology & Oncology; FAMILY PHYSICIAN Internal Medicine
DX: C50.212 Malignant neoplasm of upper-inner quadrant of left female breast (principal); N83.292 Other ovarian cyst, left side; L03.112 Cellulitis of left axilla; L76.34 Postprocedural seroma of skin and subcutaneous tissue following other procedure; G90.09 Other idiopathic peripheral autonomic neuropathy; C78.6 Secondary malignant neoplasm of retroperitoneum and peritoneum; C78.7 Secondary malignant neoplasm of liver and intrahepatic bile duct
CPT/HCPCS: 36415; 80053; 85025

== ENCOUNTER → 2024-09-06 14:44 | Outpatient (REF) | payer MEDICARE, OTHER, SELFPAY ==
[2024-09-06 15:44] LABS: % Basophils 2.4 % (0-2); % Eosinophils 4.6 % (0-6); % Immature Granulocytes 0.3 % (0-0.5); % Lymphocytes 32.8 % (20.5-51.1); % Monocytes 16.9 % (1.7-9.3); Absolute Basophils 0.1 10^3/uL (0-0.2); Absolute Eosinophils 0.2 10^3/uL (0-0.7); Absolute Lymphocytes 1.2 10^3/uL (1.2-3.4); Absolute Monocytes 0.6 10^3/uL (0.1-0.6); Absolute Neutrophils 1.6 10^3/uL (1.4-6.5); Hematocrit 36.2 % (37.0-47.0); Hemoglobin 11.7 g/dL (12.0-16.0); Mean Corp Hgb Conc. 32.3 g/dL (33.0-37.0); Mean Corpuscular Hgb 32.1 pg (27.0-31.0); Mean Corpuscular Volume 99.5 fL (81.0-99.0); Mean Platelet Volume 8.8 fL (7.4-10.4); Nucleated Red Blood Cells % 0 %; Platelet Count 278 10^3/uL (130-400); Red Blood Cell Count 3.64 10^6/uL (4.20-5.40); Red Cell Dist. Width 14.4 % (11.5-14.5); White Blood Cell Count 3.7 10^3/uL (4.8-10.8)
[2024-09-06 16:05] LABS: ALT (SGPT) 61 U/L (0-35); AST (SGOT) 44 U/L (14-36); Alkaline Phosphatase 138 U/L (38-126); Blood Urea Nitrogen 20 mg/dl (7-17); Calcium 9.8 mg/dl (8.4-10.2); Carbon Dioxide 28 mmol/L (22-30); Chloride 100 mmol/L (98-107); Glucose 88 mg/dl (70-99); Potassium 4.2 mmol/L (3.5-5.1); Sodium 135 mmol/L (135-145); Total Bilirubin 0.2 mg/dl (0.2-1.3); Total Protein 6.9 g/dl (6.3-8.2); eGFR > 60.00
[2024-09-08 23:29] LABS: CA 27-29 46.5 U/mL (<=39.0)
== END ==
LOC: REG 14:44
PROVIDERS: ATTENDING PHYSICIAN Internal Medicine Hematology & Oncology; FAMILY PHYSICIAN Internal Medicine
DX: C50.212 Malignant neoplasm of upper-inner quadrant of left female breast (principal); N83.292 Other ovarian cyst, left side; L03.112 Cellulitis of left axilla; L76.34 Postprocedural seroma of skin and subcutaneous tissue following other procedure; G90.09 Other idiopathic peripheral autonomic neuropathy; C78.6 Secondary malignant neoplasm of retroperitoneum and peritoneum; C78.7 Secondary malignant neoplasm of liver and intrahepatic bile duct
CPT/HCPCS: 36415; 80053; 85025; 86300; 86301

== ENCOUNTER → 2024-09-27 09:07 | Outpatient (REF) | payer MEDICARE, OTHER, SELFPAY ==
[2024-09-27 10:17] LABS: % Basophils 2.1 % (0-2); % Eosinophils 6.1 % (0-6); % Lymphocytes 25.7 % (20.5-51.1); % Monocytes 10.8 % (1.7-9.3); % Neutrophils 55.3 % (42.2-75.2); Absolute Basophils 0.1 10^3/uL (0-0.2); Absolute Eosinophils 0.2 10^3/uL (0-0.7); Absolute Monocytes 0.4 10^3/uL (0.1-0.6); Absolute Neutrophils 2.1 10^3/uL (1.4-6.5); Hematocrit 39.4 % (37.0-47.0); Mean Corpuscular Hgb 32.3 pg (27.0-31.0); Mean Corpuscular Volume 97.8 fL (81.0-99.0); Mean Platelet Volume 8.9 fL (7.4-10.4); Nucleated Red Blood Cells % 0 %; Platelet Count 294 10^3/uL (130-400); Red Blood Cell Count 4.03 10^6/uL (4.20-5.40); Red Cell Dist. Width 15.1 % (11.5-14.5); White Blood Cell Count 3.8 10^3/uL (4.8-10.8)
[2024-09-27 10:48] LABS: ALT (SGPT) 221 U/L (0-35); AST (SGOT) 134 U/L (14-36); Albumin 4.2 g/dl (3.5-5.0); Alkaline Phosphatase 234 U/L (38-126); Blood Urea Nitrogen 13 mg/dl (7-17); Calcium 9.9 mg/dl (8.4-10.2); Carbon Dioxide 28 mmol/L (22-30); Chloride 100 mmol/L (98-107); Glucose 83 mg/dl (70-99); HDL Cholesterol 99 mg/dl; LDL Cholesterol, Calculated 97 mg/dl; Potassium 4.1 mmol/L (3.5-5.1); Sodium 137 mmol/L (135-145); Total Bilirubin 0.7 mg/dl (0.2-1.3); Total Cholesterol 215 mg/dl (50-199); Triglyceride 99 mg/dl (10-149); Very Low Density Lipoprotein 19 mg/dl (0-30); eGFR > 60.00
[2024-09-27 11:04] LABS: Vitamin D, 25-OH*** 48.2 ng/mL (30-80)
== END ==
LOC: REG 09:07
PROVIDERS: ATTENDING PHYSICIAN Internal Medicine Hematology & Oncology; FAMILY PHYSICIAN Internal Medicine
DX: C79.9 Secondary malignant neoplasm of unspecified site (principal); M81.0 Age-related osteoporosis without current pathological fracture; E78.5 Hyperlipidemia, unspecified; C50.212 Malignant neoplasm of upper-inner quadrant of left female breast; N83.292 Other ovarian cyst, left side; L03.112 Cellulitis of left axilla; L76.34 Postprocedural seroma of skin and subcutaneous tissue following other procedure; G90.09 Other idiopathic peripheral autonomic neuropathy; C78.6 Secondary malignant neoplasm of retroperitoneum and peritoneum; C78.7 Secondary malignant neoplasm of liver and intrahepatic bile duct
CPT/HCPCS: 36415; 80053; 80061; 82306; 85025

== ENCOUNTER → 2024-10-04 10:37 | Outpatient (REF) | payer MEDICARE, OTHER, SELFPAY ==
[2024-10-05 19:32] LABS: CA 19-9 194 U/mL (<=35)
== END ==
LOC: REG 10:37
PROVIDERS: ATTENDING PHYSICIAN Internal Medicine Hematology & Oncology; FAMILY PHYSICIAN Internal Medicine
DX: C50.212 Malignant neoplasm of upper-inner quadrant of left female breast (principal); N83.292 Other ovarian cyst, left side; L03.112 Cellulitis of left axilla; G90.09 Other idiopathic peripheral autonomic neuropathy; C78.6 Secondary malignant neoplasm of retroperitoneum and peritoneum; C78.7 Secondary malignant neoplasm of liver and intrahepatic bile duct
CPT/HCPCS: 36415; 86300; 86301

== ENCOUNTER → 2024-10-17 13:32 | Outpatient (REF) | payer MEDICARE, OTHER, SELFPAY ==
[2024-10-17 16:05] LABS: % Basophils 1.5 % (0-2); % Eosinophils 5.7 % (0-6); % Immature Granulocytes 0.4 % (0-0.5); % Lymphocytes 26.4 % (20.5-51.1); % Monocytes 12.9 % (1.7-9.3); % Neutrophils 53.1 % (42.2-75.2); Absolute Basophils 0.1 10^3/uL (0-0.2); Absolute Eosinophils 0.3 10^3/uL (0-0.7); Absolute Lymphocytes 1.3 10^3/uL (1.2-3.4); Absolute Monocytes 0.6 10^3/uL (0.1-0.6); Absolute Neutrophils 2.5 10^3/uL (1.4-6.5); Hematocrit 36.4 % (37.0-47.0); Mean Corpuscular Hgb 31.9 pg (27.0-31.0); Mean Corpuscular Volume 96.8 fL (81.0-99.0); Mean Platelet Volume 8.9 fL (7.4-10.4); Nucleated Red Blood Cells % 0 %; Platelet Count 236 10^3/uL (130-400); Red Blood Cell Count 3.76 10^6/uL (4.20-5.40); Red Cell Dist. Width 15.5 % (11.5-14.5); White Blood Cell Count 4.7 10^3/uL (4.8-10.8)
[2024-10-17 16:26] LABS: ALT (SGPT) 178 U/L (0-35); AST (SGOT) 146 U/L (14-36); Albumin 4.2 g/dl (3.5-5.0); Alkaline Phosphatase 156 U/L (38-126); Blood Urea Nitrogen 21 mg/dl (7-17); Calcium 10.1 mg/dl (8.4-10.2); Carbon Dioxide 27 mmol/L (22-30); Chloride 99 mmol/L (98-107); Direct Bilirubin 0.2 mg/dl (0.0-0.4); Glucose 104 mg/dl (70-99); Potassium 4.3 mmol/L (3.5-5.1); Sodium 135 mmol/L (135-145); Total Bilirubin 0.7 mg/dl (0.2-1.3); Total Protein 6.9 g/dl (6.3-8.2); eGFR 58.02
== END ==
LOC: RCS 13:32
PROVIDERS: ATTENDING PHYSICIAN Internal Medicine Hematology & Oncology; FAMILY PHYSICIAN Internal Medicine
DX: C50.412 Malignant neoplasm of upper-outer quadrant of left female breast (principal); C50.212 Malignant neoplasm of upper-inner quadrant of left female breast; N83.292 Other ovarian cyst, left side; L03.112 Cellulitis of left axilla; L76.34 Postprocedural seroma of skin and subcutaneous tissue following other procedure; G90.09 Other idiopathic peripheral autonomic neuropathy; C78.6 Secondary malignant neoplasm of retroperitoneum and peritoneum; C78.7 Secondary malignant neoplasm of liver and intrahepatic bile duct
CPT/HCPCS: 36415; 80053; 82248; 85025; 93306

== ENCOUNTER → 2024-10-27 09:23 | Outpatient (REF) | payer MEDICARE, OTHER, SELFPAY | LOC: RAD 09:23 | PROVIDERS: ATTENDING PHYSICIAN Internal Medicine Hematology & Oncology; FAMILY PHYSICIAN Internal Medicine | DX: C50.212 Malignant neoplasm of upper-inner quadrant of left female breast (principal); C78.6 Secondary malignant neoplasm of retroperitoneum and peritoneum; C78.7 Secondary malignant neoplasm of liver and intrahepatic bile duct; N83.292 Other ovarian cyst, left side; L03.112 Cellulitis of left axilla; L76.34 Postprocedural seroma of skin and subcutaneous tissue following other procedure; G90.09 Other idiopathic peripheral autonomic neuropathy | CPT/HCPCS: 71260; 74177; Q9967 ==

== ENCOUNTER → 2024-11-01 13:05 | Outpatient (REF) | payer MEDICARE, OTHER, SELFPAY ==
[2024-11-03 18:41] LABS: CA 27-29 45.9 U/mL (<=39.0)
[2024-11-03 21:32] LABS: CA 19-9 88 U/mL (<=35)
== END ==
LOC: REG 13:05
PROVIDERS: ATTENDING PHYSICIAN Internal Medicine Hematology & Oncology; FAMILY PHYSICIAN Internal Medicine
DX: C50.212 Malignant neoplasm of upper-inner quadrant of left female breast (principal); N83.292 Other ovarian cyst, left side; L03.112 Cellulitis of left axilla; L76.34 Postprocedural seroma of skin and subcutaneous tissue following other procedure; G90.09 Other idiopathic peripheral autonomic neuropathy; C78.6 Secondary malignant neoplasm of retroperitoneum and peritoneum; C78.7 Secondary malignant neoplasm of liver and intrahepatic bile duct
CPT/HCPCS: 36415; 86300; 86301

== ENCOUNTER → 2024-11-08 09:56 | Outpatient (REF) | payer MEDICARE, OTHER, SELFPAY ==
[2024-11-08 11:11] LABS: % Basophils 1.6 % (0-2); % Eosinophils 4.5 % (0-6); % Immature Granulocytes 0.4 % (0-0.5); % Lymphocytes 18.4 % (20.5-51.1); % Monocytes 11.4 % (1.7-9.3); % Neutrophils 63.7 % (42.2-75.2); Absolute Basophils 0.1 10^3/uL (0-0.2); Absolute Eosinophils 0.2 10^3/uL (0-0.7); Absolute Lymphocytes 0.9 10^3/uL (1.2-3.4); Absolute Monocytes 0.6 10^3/uL (0.1-0.6); Absolute Neutrophils 3.3 10^3/uL (1.4-6.5); Hematocrit 36.2 % (37.0-47.0); Hemoglobin 12.1 g/dL (12.0-16.0); Mean Corp Hgb Conc. 33.4 g/dL (33.0-37.0); Mean Corpuscular Hgb 32.4 pg (27.0-31.0); Mean Corpuscular Volume 96.8 fL (81.0-99.0); Mean Platelet Volume 8.6 fL (7.4-10.4); Nucleated Red Blood Cells % 0 %; Platelet Count 237 10^3/uL (130-400); Red Blood Cell Count 3.74 10^6/uL (4.20-5.40); Red Cell Dist. Width 15.2 % (11.5-14.5); White Blood Cell Count 5.1 10^3/uL (4.8-10.8)
[2024-11-08 11:46] LABS: ALT (SGPT) 81 U/L (0-35); AST (SGOT) 86 U/L (14-36); Albumin 4.1 g/dl (3.5-5.0); Alkaline Phosphatase 89 U/L (38-126); Blood Urea Nitrogen 14 mg/dl (7-17); Carbon Dioxide 29 mmol/L (22-30); Chloride 101 mmol/L (98-107); Glucose 85 mg/dl (70-99); Potassium 4.5 mmol/L (3.5-5.1); Sodium 137 mmol/L (135-145); Total Bilirubin 0.5 mg/dl (0.2-1.3); Total Protein 6.9 g/dl (6.3-8.2); eGFR > 60.00
== END ==
LOC: REG 09:56
PROVIDERS: ATTENDING PHYSICIAN Ophthalmology Ophthalmic Plastic and Reconstructive Surgery; FAMILY PHYSICIAN Internal Medicine; REFERRING PHYSICIAN Internal Medicine Hematology & Oncology
DX: D48.5 Neoplasm of uncertain behavior of skin (principal); C50.212 Malignant neoplasm of upper-inner quadrant of left female breast; N83.292 Other ovarian cyst, left side; L03.112 Cellulitis of left axilla; L76.34 Postprocedural seroma of skin and subcutaneous tissue following other procedure; G90.09 Other idiopathic peripheral autonomic neuropathy; C78.6 Secondary malignant neoplasm of retroperitoneum and peritoneum; C78.7 Secondary malignant neoplasm of liver and intrahepatic bile duct
CPT/HCPCS: 36415; 80053; 85025

== ENCOUNTER → 2024-11-11 12:51 | Outpatient (REF) | payer MEDICARE, OTHER, SELFPAY | LOC: RAD 12:51 | PROVIDERS: ATTENDING PHYSICIAN Ophthalmology Ophthalmic Plastic and Reconstructive Surgery; FAMILY PHYSICIAN Internal Medicine; OTHER PHYSICIAN Internal Medicine Hematology & Oncology; REFERRING PHYSICIAN Ophthalmology | DX: D48.5 Neoplasm of uncertain behavior of skin (principal); H01.021 Squamous blepharitis right upper eyelid; H01.024 Squamous blepharitis left upper eyelid | CPT/HCPCS: 70482; Q9967 ==

== ENCOUNTER → 2024-11-29 12:05 | Outpatient (REF) | payer MEDICARE, OTHER, SELFPAY ==
[2024-11-29 13:17] LABS: % Basophils 2.2 % (0-2); % Eosinophils 5.9 % (0-6); % Immature Granulocytes 0.3 % (0-0.5); % Lymphocytes 31.1 % (20.5-51.1); % Monocytes 14.6 % (1.7-9.3); % Neutrophils 45.9 % (42.2-75.2); Absolute Basophils 0.1 10^3/uL (0-0.2); Absolute Eosinophils 0.2 10^3/uL (0-0.7); Absolute Monocytes 0.5 10^3/uL (0.1-0.6); Absolute Neutrophils 1.5 10^3/uL (1.4-6.5); Hematocrit 36.7 % (37.0-47.0); Hemoglobin 11.9 g/dL (12.0-16.0); Mean Corp Hgb Conc. 32.4 g/dL (33.0-37.0); Mean Corpuscular Hgb 32.2 pg (27.0-31.0); Mean Corpuscular Volume 99.5 fL (81.0-99.0); Mean Platelet Volume 8.7 fL (7.4-10.4); Nucleated Red Blood Cells % 0 %; Platelet Count 228 10^3/uL (130-400); Red Blood Cell Count 3.69 10^6/uL (4.20-5.40); Red Cell Dist. Width 15.5 % (11.5-14.5); White Blood Cell Count 3.2 10^3/uL (4.8-10.8)
[2024-11-29 13:48] LABS: ALT (SGPT) 31 U/L (0-35); AST (SGOT) 38 U/L (14-36); Albumin 4.2 g/dl (3.5-5.0); Alkaline Phosphatase 70 U/L (38-126); Blood Urea Nitrogen 18 mg/dl (7-17); Calcium 10.4 mg/dl (8.4-10.2); Carbon Dioxide 29 mmol/L (22-30); Chloride 101 mmol/L (98-107); Glucose 85 mg/dl (70-99); Potassium 4.6 mmol/L (3.5-5.1); Sodium 138 mmol/L (135-145); Total Bilirubin 0.5 mg/dl (0.2-1.3); Total Protein 6.8 g/dl (6.3-8.2); eGFR > 60.00
[2024-12-01 19:39] LABS: CA 27-29 59.1 U/mL (<=39.0)
[2024-12-02 01:44] LABS: CA 19-9 72 U/mL (<=35)
== END ==
LOC: REG 12:05
PROVIDERS: ATTENDING PHYSICIAN Internal Medicine Hematology & Oncology; FAMILY PHYSICIAN Internal Medicine
DX: C50.212 Malignant neoplasm of upper-inner quadrant of left female breast (principal); N83.292 Other ovarian cyst, left side; L03.112 Cellulitis of left axilla; L76.34 Postprocedural seroma of skin and subcutaneous tissue following other procedure; G90.09 Other idiopathic peripheral autonomic neuropathy; C78.6 Secondary malignant neoplasm of retroperitoneum and peritoneum; C78.7 Secondary malignant neoplasm of liver and intrahepatic bile duct
CPT/HCPCS: 36415; 80053; 85025; 86300; 86301

== ENCOUNTER → 2024-12-20 12:49 | Outpatient (REF) | payer MEDICARE, OTHER, SELFPAY ==
[2024-12-20 14:42] LABS: Hematocrit 33.9 % (37.0-47.0); Hemoglobin 11.2 g/dL (12.0-16.0); Mean Corpuscular Hgb 32.6 pg (27.0-31.0); Mean Corpuscular Volume 98.5 fL (81.0-99.0); Mean Platelet Volume 8.8 fL (7.4-10.4); Platelet Count 316 10^3/uL (130-400); Red Blood Cell Count 3.44 10^6/uL (4.20-5.40); Red Cell Dist. Width 15.7 % (11.5-14.5); White Blood Cell Count 3.1 10^3/uL (4.8-10.8)
[2024-12-20 15:03] LABS: ALT (SGPT) 84 U/L (0-35); AST (SGOT) 79 U/L (14-36); Albumin 3.8 g/dl (3.5-5.0); Alkaline Phosphatase 203 U/L (38-126); Blood Urea Nitrogen 15 mg/dl (7-17); Calcium 9.6 mg/dl (8.4-10.2); Carbon Dioxide 28 mmol/L (22-30); Chloride 102 mmol/L (98-107); Glucose 96 mg/dl (70-99); Potassium 4.6 mmol/L (3.5-5.1); Sodium 137 mmol/L (135-145); Total Bilirubin 0.5 mg/dl (0.2-1.3); Total Protein 6.5 g/dl (6.3-8.2); eGFR > 60.00
[2024-12-20 15:49] LABS: % Basophils 1.6 % (0-2); % Eosinophils 5.9 % (0-6); % Immature Granulocytes 0.3 % (0-0.5); % Lymphocytes 31.6 % (20.5-51.1); % Monocytes 18.2 % (1.7-9.3); % Neutrophils 42.4 % (42.2-75.2); Absolute Basophils 0.1 10^3/uL (0-0.2); Absolute Eosinophils 0.2 10^3/uL (0-0.7); Absolute Monocytes 0.6 10^3/uL (0.1-0.6); Absolute Neutrophils 1.3 10^3/uL (1.4-6.5); Nucleated Red Blood Cells % 0 %
== END ==
LOC: REG 12:49
PROVIDERS: ATTENDING PHYSICIAN Internal Medicine Hematology & Oncology; FAMILY PHYSICIAN Internal Medicine
DX: C50.212 Malignant neoplasm of upper-inner quadrant of left female breast (principal); N83.292 Other ovarian cyst, left side; L03.112 Cellulitis of left axilla; L76.34 Postprocedural seroma of skin and subcutaneous tissue following other procedure; G90.09 Other idiopathic peripheral autonomic neuropathy; C78.6 Secondary malignant neoplasm of retroperitoneum and peritoneum; C78.7 Secondary malignant neoplasm of liver and intrahepatic bile duct
CPT/HCPCS: 36415; 80053; 85025

== ENCOUNTER → 2024-12-29 11:58 | Outpatient (REF) | payer MEDICARE, OTHER, SELFPAY ==
[2025-01-01 05:24] LABS: CA 19-9 401 U/mL (<=35)
== END ==
LOC: REG 11:58
PROVIDERS: ATTENDING PHYSICIAN Internal Medicine Hematology & Oncology; FAMILY PHYSICIAN Internal Medicine
DX: C50.212 Malignant neoplasm of upper-inner quadrant of left female breast (principal); N83.292 Other ovarian cyst, left side; L03.112 Cellulitis of left axilla; L76.34 Postprocedural seroma of skin and subcutaneous tissue following other procedure; G90.09 Other idiopathic peripheral autonomic neuropathy; C78.6 Secondary malignant neoplasm of retroperitoneum and peritoneum; C78.7 Secondary malignant neoplasm of liver and intrahepatic bile duct
CPT/HCPCS: 36415; 86300; 86301

== ENCOUNTER → 2025-01-10 10:19 | Outpatient (REF) | payer MEDICARE, OTHER, SELFPAY ==
[2025-01-10 11:38] LABS: % Basophils 1.8 % (0-2); % Eosinophils 4.9 % (0-6); % Immature Granulocytes 0.3 % (0-0.5); % Lymphocytes 27.3 % (20.5-51.1); % Monocytes 11.2 % (1.7-9.3); % Neutrophils 54.5 % (42.2-75.2); Absolute Basophils 0.1 10^3/uL (0-0.2); Absolute Eosinophils 0.2 10^3/uL (0-0.7); Absolute Lymphocytes 1.1 10^3/uL (1.2-3.4); Absolute Monocytes 0.4 10^3/uL (0.1-0.6); Absolute Neutrophils 2.1 10^3/uL (1.4-6.5); Hematocrit 34.8 % (37.0-47.0); Hemoglobin 11.6 g/dL (12.0-16.0); Mean Corp Hgb Conc. 33.3 g/dL (33.0-37.0); Mean Corpuscular Hgb 32.9 pg (27.0-31.0); Mean Corpuscular Volume 98.6 fL (81.0-99.0); Mean Platelet Volume 8.8 fL (7.4-10.4); Nucleated Red Blood Cells % 0 %; Platelet Count 263 10^3/uL (130-400); Red Blood Cell Count 3.53 10^6/uL (4.20-5.40); Red Cell Dist. Width 15.3 % (11.5-14.5); White Blood Cell Count 3.8 10^3/uL (4.8-10.8)
[2025-01-10 12:10] LABS: ALT (SGPT) 31 U/L (0-35); AST (SGOT) 38 U/L (14-36); Alkaline Phosphatase 110 U/L (38-126); Blood Urea Nitrogen 17 mg/dl (7-17); Calcium 9.8 mg/dl (8.4-10.2); Carbon Dioxide 30 mmol/L (22-30); Chloride 106 mmol/L (98-107); Glucose 94 mg/dl (70-99); Sodium 136 mmol/L (135-145); Total Bilirubin 0.4 mg/dl (0.2-1.3); Total Protein 6.8 g/dl (6.3-8.2); eGFR > 60.00
[2025-01-10 12:18] LABS: Potassium 4.6 mmol/L (3.5-5.1)
== END ==
LOC: REG 10:19
PROVIDERS: ATTENDING PHYSICIAN Internal Medicine Hematology & Oncology
DX: C50.212 Malignant neoplasm of upper-inner quadrant of left female breast (principal); N83.292 Other ovarian cyst, left side; L03.112 Cellulitis of left axilla; L76.34 Postprocedural seroma of skin and subcutaneous tissue following other procedure; G90.09 Other idiopathic peripheral autonomic neuropathy; C78.6 Secondary malignant neoplasm of retroperitoneum and peritoneum; C78.7 Secondary malignant neoplasm of liver and intrahepatic bile duct
CPT/HCPCS: 36415; 80053; 85025

== ENCOUNTER → 2025-01-17 15:02 | Outpatient (REF) | payer MEDICARE, OTHER, SELFPAY | LOC: RCS 15:02 | PROVIDERS: ATTENDING PHYSICIAN Internal Medicine Hematology & Oncology; FAMILY PHYSICIAN Internal Medicine | DX: C50.212 Malignant neoplasm of upper-inner quadrant of left female breast (principal); N83.292 Other ovarian cyst, left side; L03.112 Cellulitis of left axilla; L76.34 Postprocedural seroma of skin and subcutaneous tissue following other procedure; G90.09 Other idiopathic peripheral autonomic neuropathy; C78.6 Secondary malignant neoplasm of retroperitoneum and peritoneum; C78.7 Secondary malignant neoplasm of liver and intrahepatic bile duct | CPT/HCPCS: 93306; 93356 ==

== ENCOUNTER → 2025-01-31 11:28 | Outpatient (REF) | payer MEDICARE, OTHER, SELFPAY ==
[2025-01-31 12:25] LABS: % Basophils 1.2 % (0-2); % Eosinophils 2.7 % (0-6); % Immature Granulocytes 0.2 % (0-0.5); % Lymphocytes 13.8 % (20.5-51.1); % Monocytes 10.1 % (1.7-9.3); Absolute Basophils 0.1 10^3/uL (0-0.2); Absolute Eosinophils 0.1 10^3/uL (0-0.7); Absolute Lymphocytes 0.7 10^3/uL (1.2-3.4); Absolute Monocytes 0.5 10^3/uL (0.1-0.6); Absolute Neutrophils 3.7 10^3/uL (1.4-6.5); Hematocrit 35.4 % (37.0-47.0); Hemoglobin 11.9 g/dL (12.0-16.0); Mean Corp Hgb Conc. 33.6 g/dL (33.0-37.0); Mean Corpuscular Hgb 32.8 pg (27.0-31.0); Mean Corpuscular Volume 97.5 fL (81.0-99.0); Nucleated Red Blood Cells % 0 %; Platelet Count 220 10^3/uL (130-400); Red Blood Cell Count 3.63 10^6/uL (4.20-5.40); Red Cell Dist. Width 15.2 % (11.5-14.5); White Blood Cell Count 5.1 10^3/uL (4.8-10.8)
[2025-01-31 13:11] LABS: ALT (SGPT) 163 U/L (0-35); AST (SGOT) 165 U/L (14-36); Albumin 4.1 g/dl (3.5-5.0); Alkaline Phosphatase 139 U/L (38-126); Blood Urea Nitrogen 16 mg/dl (7-17); Calcium 9.8 mg/dl (8.4-10.2); Carbon Dioxide 25 mmol/L (22-30); Chloride 107 mmol/L (98-107); Glucose 82 mg/dl (70-99); Potassium 4.1 mmol/L (3.5-5.1); Sodium 138 mmol/L (135-145); Total Bilirubin 0.6 mg/dl (0.2-1.3); Total Protein 6.8 g/dl (6.3-8.2); eGFR > 60.00
[2025-02-03 02:04] LABS: CA 19-9 248 U/mL (<=35); CA 27-29 56.5 U/mL (<=39.0)
== END ==
LOC: REG 11:28
PROVIDERS: ATTENDING PHYSICIAN Internal Medicine Hematology & Oncology
DX: C50.212 Malignant neoplasm of upper-inner quadrant of left female breast (principal); N83.292 Other ovarian cyst, left side; L03.112 Cellulitis of left axilla; L76.34 Postprocedural seroma of skin and subcutaneous tissue following other procedure; G90.09 Other idiopathic peripheral autonomic neuropathy; C78.6 Secondary malignant neoplasm of retroperitoneum and peritoneum; C78.7 Secondary malignant neoplasm of liver and intrahepatic bile duct
CPT/HCPCS: 36415; 80053; 85025; 86300; 86301

== ENCOUNTER → 2025-02-01 13:00 | Outpatient (REF) | payer MEDICARE, OTHER, SELFPAY | LOC: RAD 13:00 | PROVIDERS: ATTENDING PHYSICIAN Internal Medicine Hematology & Oncology; FAMILY PHYSICIAN Internal Medicine | DX: C50.212 Malignant neoplasm of upper-inner quadrant of left female breast (principal); N83.292 Other ovarian cyst, left side; L03.112 Cellulitis of left axilla; L76.34 Postprocedural seroma of skin and subcutaneous tissue following other procedure; G90.09 Other idiopathic peripheral autonomic neuropathy; C78.6 Secondary malignant neoplasm of retroperitoneum and peritoneum; C78.7 Secondary malignant neoplasm of liver and intrahepatic bile duct | CPT/HCPCS: 71260; 74177; Q9967 ==

== ENCOUNTER → 2025-02-28 11:40 | Outpatient (REF) | payer MEDICARE, OTHER, SELFPAY ==
[2025-02-28 12:41] LABS: Hematocrit 35.5 % (37.0-47.0); Hemoglobin 12.3 g/dL (12.0-16.0); Mean Corp Hgb Conc. 34.6 g/dL (33.0-37.0); Mean Corpuscular Volume 96.5 fL (81.0-99.0); Nucleated Red Blood Cells % 0 %; Platelet Count 235 10^3/uL (130-400); Red Cell Dist. Width 15.7 % (11.5-14.5)
[2025-02-28 13:07] LABS: ALT (SGPT) 97 U/L (0-35); AST (SGOT) 72 U/L (14-36); Albumin 3.8 g/dl (3.5-5.0); Alkaline Phosphatase 395 U/L (38-126); Blood Urea Nitrogen 14 mg/dl (7-17); Calcium 9.8 mg/dl (8.4-10.2); Carbon Dioxide 28 mmol/L (22-30); Chloride 105 mmol/L (98-107); Glucose 87 mg/dl (70-99); Potassium 4.4 mmol/L (3.5-5.1); Sodium 137 mmol/L (135-145); Total Protein 6.6 g/dl (6.3-8.2); eGFR > 60.00
[2025-03-03 04:00] LABS: CA 19-9 1943 U/mL (<=35)
[2025-03-03 14:57] LABS: CA 27-29 58.3 U/mL (<=39.0)
== END ==
LOC: REG 11:40
PROVIDERS: ATTENDING PHYSICIAN Internal Medicine Hematology & Oncology; FAMILY PHYSICIAN Internal Medicine
DX: C50.212 Malignant neoplasm of upper-inner quadrant of left female breast (principal); N83.292 Other ovarian cyst, left side; L03.112 Cellulitis of left axilla; L76.34 Postprocedural seroma of skin and subcutaneous tissue following other procedure; G90.09 Other idiopathic peripheral autonomic neuropathy; C78.6 Secondary malignant neoplasm of retroperitoneum and peritoneum; C78.7 Secondary malignant neoplasm of liver and intrahepatic bile duct
CPT/HCPCS: 36415; 80053; 85025; 86300; 86301

== ENCOUNTER → 2025-03-21 11:14 | Outpatient (REF) | payer MEDICARE, OTHER, SELFPAY ==
[2025-03-21 12:47] LABS: Hematocrit 32.8 % (37.0-47.0); Hemoglobin 11.2 g/dL (12.0-16.0); Mean Corp Hgb Conc. 34.1 g/dL (33.0-37.0); Mean Corpuscular Volume 97.3 fL (81.0-99.0); Platelet Count 328 10^3/uL (130-400); Red Cell Dist. Width 16.6 % (11.5-14.5)
[2025-03-21 12:52] LABS: ALT (SGPT) 58 U/L (0-35); AST (SGOT) 57 U/L (14-36); Albumin 3.8 g/dl (3.5-5.0); Alkaline Phosphatase 571 U/L (38-126); Blood Urea Nitrogen 13 mg/dl (7-17); Calcium 9.8 mg/dl (8.4-10.2); Carbon Dioxide 29 mmol/L (22-30); Chloride 102 mmol/L (98-107); Glucose 115 mg/dl (70-99); Potassium 4.6 mmol/L (3.5-5.1); Sodium 135 mmol/L (135-145); Total Protein 6.8 g/dl (6.3-8.2); eGFR > 60.00
[2025-03-21 13:38] LABS: Absolute Neutrophils -Man Diff 1.3 10^3/uL (1.4-6.5)
[2025-03-21 13:39] LABS: Normal RBC Morphology Yes; Platelets Checked Yes; Total Cells Counted 100
== END ==
LOC: REG 11:14
PROVIDERS: ATTENDING PHYSICIAN Internal Medicine Hematology & Oncology; FAMILY PHYSICIAN Internal Medicine
DX: C50.212 Malignant neoplasm of upper-inner quadrant of left female breast (principal); N83.292 Other ovarian cyst, left side; L03.112 Cellulitis of left axilla; L76.34 Postprocedural seroma of skin and subcutaneous tissue following other procedure; G90.09 Other idiopathic peripheral autonomic neuropathy; C78.6 Secondary malignant neoplasm of retroperitoneum and peritoneum; C78.7 Secondary malignant neoplasm of liver and intrahepatic bile duct
CPT/HCPCS: 36415; 80053; 85025

== ENCOUNTER → 2025-03-31 13:37 | Outpatient (REF) | payer MEDICARE, OTHER, SELFPAY ==
[2025-04-03 03:29] LABS: CA 27-29 54.8 U/mL (<=39.0)
[2025-04-03 09:20] LABS: CA 19-9 803 U/mL (<=35)
== END ==
LOC: HWLAB 13:37
PROVIDERS: ATTENDING PHYSICIAN Internal Medicine Hematology & Oncology; FAMILY PHYSICIAN Internal Medicine
DX: C50.212 Malignant neoplasm of upper-inner quadrant of left female breast (principal); N83.292 Other ovarian cyst, left side; L03.112 Cellulitis of left axilla; L76.34 Postprocedural seroma of skin and subcutaneous tissue following other procedure; G90.09 Other idiopathic peripheral autonomic neuropathy; C78.6 Secondary malignant neoplasm of retroperitoneum and peritoneum; C78.7 Secondary malignant neoplasm of liver and intrahepatic bile duct
CPT/HCPCS: 36415; 86300; 86301

== ENCOUNTER → 2025-04-11 13:16 | Outpatient (REF) | payer MEDICARE, OTHER, SELFPAY ==
[2025-04-11 14:36] LABS: Hematocrit 32.9 % (37.0-47.0); Hemoglobin 10.7 g/dL (12.0-16.0); Mean Corp Hgb Conc. 32.5 g/dL (33.0-37.0); Mean Corpuscular Volume 99.7 fL (81.0-99.0); Nucleated Red Blood Cells % 0 %; Platelet Count 320 10^3/uL (130-400); Red Cell Dist. Width 16.9 % (11.5-14.5)
[2025-04-11 15:02] LABS: ALT (SGPT) 58 U/L (0-35); AST (SGOT) 63 U/L (14-36); Albumin 3.6 g/dl (3.5-5.0); Alkaline Phosphatase 549 U/L (38-126); Blood Urea Nitrogen 24 mg/dl (7-17); Calcium 10.0 mg/dl (8.4-10.2); Carbon Dioxide 21 mmol/L (22-30); Chloride 108 mmol/L (98-107); Glucose 90 mg/dl (70-99); Potassium 4.7 mmol/L (3.5-5.1); Sodium 136 mmol/L (135-145); Total Protein 6.7 g/dl (6.3-8.2); eGFR > 60.00
== END ==
LOC: REG 13:16
PROVIDERS: ATTENDING PHYSICIAN Internal Medicine Hematology & Oncology; FAMILY PHYSICIAN Internal Medicine
DX: C50.212 Malignant neoplasm of upper-inner quadrant of left female breast (principal); N83.292 Other ovarian cyst, left side; L03.112 Cellulitis of left axilla; L76.34 Postprocedural seroma of skin and subcutaneous tissue following other procedure; G90.09 Other idiopathic peripheral autonomic neuropathy; C78.6 Secondary malignant neoplasm of retroperitoneum and peritoneum; C78.7 Secondary malignant neoplasm of liver and intrahepatic bile duct
CPT/HCPCS: 36415; 80053; 85025

== ENCOUNTER → 2025-04-26 08:48 | Outpatient (REF) | payer MEDICARE, OTHER, SELFPAY | LOC: RCS 08:48 | PROVIDERS: ATTENDING PHYSICIAN Internal Medicine Hematology & Oncology; FAMILY PHYSICIAN Internal Medicine | DX: C50.412 Malignant neoplasm of upper-outer quadrant of left female breast (principal); N83.292 Other ovarian cyst, left side; L03.112 Cellulitis of left axilla; L76.34 Postprocedural seroma of skin and subcutaneous tissue following other procedure; G90.09 Other idiopathic peripheral autonomic neuropathy; C78.6 Secondary malignant neoplasm of retroperitoneum and peritoneum; C78.7 Secondary malignant neoplasm of liver and intrahepatic bile duct | CPT/HCPCS: 93306; 93356 ==

== ENCOUNTER → 2025-05-05 14:25 | Outpatient (REF) | payer MEDICARE, OTHER, SELFPAY | LOC: RAD 14:25 | PROVIDERS: ATTENDING PHYSICIAN Internal Medicine Hematology & Oncology; FAMILY PHYSICIAN Internal Medicine; REFERRING PHYSICIAN Nurse Practitioner Adult Health | DX: C50.212 Malignant neoplasm of upper-inner quadrant of left female breast (principal); N83.292 Other ovarian cyst, left side; L03.112 Cellulitis of left axilla; L76.34 Postprocedural seroma of skin and subcutaneous tissue following other procedure; G90.09 Other idiopathic peripheral autonomic neuropathy; C78.6 Secondary malignant neoplasm of retroperitoneum and peritoneum; C78.7 Secondary malignant neoplasm of liver and intrahepatic bile duct | CPT/HCPCS: 71260; 74177; Q9967 ==

== ENCOUNTER → 2025-05-18 15:52 | Outpatient (REF) | payer MEDICARE, OTHER, SELFPAY ==
[2025-05-18 12:05] LABS: Hematocrit 33.0 % (37.0-47.0); Hemoglobin 11.4 g/dL (12.0-16.0); Mean Corp Hgb Conc. 34.5 g/dL (33.0-37.0); Mean Corpuscular Volume 94.3 fL (81.0-99.0); Platelet Count 353 10^3/uL (130-400); Red Cell Dist. Width 15.5 % (11.5-14.5)
[2025-05-18 13:06] LABS: INR 1.09; PT 14.6 Sec (11.4-14.6)
[2025-05-18 13:07] LABS: APTT 32.4 Sec (23.4-35.0)
[2025-05-18 13:15] LABS: ALT (SGPT) 40 U/L (0-35); AST (SGOT) 50 U/L (14-36); Albumin 3.5 g/dl (3.5-5.0); Alkaline Phosphatase 419 U/L (38-126); Blood Urea Nitrogen 68 mg/dl (7-17); Calcium 9.8 mg/dl (8.4-10.2); Carbon Dioxide 15 mmol/L (22-30); Chloride 94 mmol/L (98-107); Glucose 108 mg/dl (70-99); Magnesium 2.3 mg/dl (1.6-2.3); Potassium 4.8 mmol/L (3.5-5.1); Sodium 123 mmol/L (135-145); Total Protein 7.2 g/dl (6.3-8.2); eGFR 30.70
== END ==
LOC: OIDL 15:52
PROVIDERS: ATTENDING PHYSICIAN Internal Medicine Hematology & Oncology
DX: C50.212 Malignant neoplasm of upper-inner quadrant of left female breast (principal); N83.292 Other ovarian cyst, left side; L03.112 Cellulitis of left axilla; L76.34 Postprocedural seroma of skin and subcutaneous tissue following other procedure; G90.09 Other idiopathic peripheral autonomic neuropathy; C78.6 Secondary malignant neoplasm of retroperitoneum and peritoneum; C78.7 Secondary malignant neoplasm of liver and intrahepatic bile duct; Z01.812 Encounter for preprocedural laboratory examination
CPT/HCPCS: 80053; 83735; 85025; 85610; 85730